=== PATIENT | female | born 1955 | race Caucasian/White ===

== ENCOUNTER → 2016-12-05 | Outpatient (CLI) | payer MEDICARE, BC ==
--- NOTE | 2016-12-05 12:02 | US ---
EXAMINATION TYPE: US abdomen complete DATE OF EXAM: 12/05/2016 11:41 AM COMPARISON: None CLINICAL HISTORY: 61-year-old female R19.06 Epigastric Mass. Receiving dialysis, known right pleural effusion; patient states on the doctor's exam epigastric region was very painful on palpation TECHNIQUE: Multiple sonographic images of the abdomen were obtained. Additional targeted scanning josue ng the epigastrium at the site of patient's tenderness and palpable abnormality. FINDINGS: EXAM MEASUREMENTS: Liver Length: 14.3 cm Gallbladder Wall: 0.2 cm CBD: 0.5 cm Spleen: 12.0 cm Right Kidney: 7.1 x 3.0 x 3.5 cm Left Kidney: 7.8 x 3.0 x 2.8 cm Pancreas: Only a small portion of the pancreatic neck is seen and appears within normal limits. The remainder is obscured by bowel gas shadowing. Liver: Normal homogeneous echotexture without focal lesion. Gallbladder: No abnormal gallbladder distention, wall thickening, pericholecystic fluid, or shadowin g calculi. Some junctional folds are noted. Evidence for sonographic Dewitt's sign: no CBD: Within normal limits. Spleen: Within normal limits. Right Kidney: Small in size without hydronephrosis. Left Kidney: Small in size without hydronephrosis. Upper IVC: Within normal limits. Abd Aorta: Atelectatic calcifications and irregularity without aneurysm. A moderate to large right Pleural Effusion noted. Small amount of perihepatic ascites noted in the upper abdomen. Targeted scanning along the epigastrium shows no discrete solid or cystic mass. IMPRESSION: 1. Moderate to large right pleural effusion and small amount of upper abdominal ascites fluid. Correl ate as to etiology. 2. No discrete masses identified along the epigastrium at the site of patient's complaint. If indicat ed, cross-sectional imaging can be performed to further evaluate. 3. Chronic medical renal disease.
== END | disposition home or self-care (01) ==
LOC: RADUSWWP 11:19
PROVIDERS: ATTEND Family Medicine
DX: R18.8 Other ascites (principal); N18.9 Chronic kidney disease, unspecified
CPT/HCPCS: 76700

== ENCOUNTER → 2018-05-25 | Outpatient (CLI) | payer MEDICARE, BC ==
--- NOTE | 2018-05-25 11:32 | MM ---
Reason for exam: screening (asymptomatic). Baseline mammogram. History: Patient had first child at age 30. Took hormonal contraceptives beginning at age 18. Physical Findings: Nurse did not find any significant physical abnormalities on exam. MG 3D Screening Mammo W/Cad Bilateral CC and MLO view(s) were taken. The breast tissue is heterogeneously dense. This may lower the sensitivity of mammography. Finding: There are typically benign vascular calcifications in the left breast. There is no discrete abnormality. These results were verbally communicated with the patient and result sheet given to the patient on 05/25/18. ASSESSMENT: Benign, BI-RAD 2 RECOMMENDATION: Routine screening mammogram of both breasts in 1 year.
== END | disposition home or self-care (01) ==
LOC: RADMAMWWP 09:27
PROVIDERS: ATTEND Family Medicine
DX: Z12.31 Encounter for screening mammogram for malignant neoplasm of breast (principal)
CPT/HCPCS: 77063; 77067

== ENCOUNTER 2019-02-08 14:55 | Emergency (ER) | payer MEDICARE, BC ==
[2019-02-08 15:08] VITALS: BP 143/80; PULSE 65; RESP 20; TEMP 98
--- NOTE | 2019-02-08 16:50 | ED ---
General Adult HPI - General Chief complaint: ENT Stated complaint: Ear pain, Dizziness Time Seen by Provider: 02/08/19 15:17 Source: patient, RN notes reviewed, old records reviewed Mode of arrival: ambulatory Limitations: no limitations - History of Present Illness Initial comments: 63-year-old female patient with past medical history of type 2 diabetes, hypertension, ESRD on home hemodialysis presents to ED with sinus congestion, sensation of fluid in her ears bilaterally. Patient is ongoing for approximately days. Patient denies any other complaints. Patient denies any sore throat, fever/chills, nausea vomiting diarrhea. Patient denies any chest pain or shortness breath abdominal pain. Systemic: Pt denies fatigue, myalgia, fever/chills, rash. Pt denies weakness, night sweats, weight loss. Neuro: Pt denies headache, visual disturbances, syncope or pre-syncope. HEENT: Pt denies ocular discharge or irritation, otalgia, rhinorrhea, pharyng itis or notable lymphadenopathy. Cardiopulmonary: Pt denies chest pain, SOB, heart palpitations, dyspnea on exertion. Abdominal/GI: Pt denies abdominal pain, n/v/d. : Pt denies dysuria, burning w/ urination, frequency/urgency. Denies new onset urinary or bowel incontinence. MSK: Pt denies myalgia, loss of strength or function in extremities. Neuro: Pt denies new onset weakness, paresthesias. - Related Data Home Medications Medication Instructions Recorded Confirmed Atorvastatin [Lipitor] 20 mg PO HS 08/05/14 08/07/17 Calcium Acetate [PhosLo] 667 mg PO TID 07/17/16 08/07/17 Insuln Asp Prt/Insulin Aspart 22 unit SQ AC-BID 07/17/16 08/07/17 [NovoLOG MIX 70-30 VIAL] Furosemide 80 mg PO BID 07/18/16 08/07/17 Gabapentin 600 mg PO DAILY 07/18/16 08/07/17 Lisinopril 40 mg PO DAILY 07/18/16 08/07/17 Multivitamins, Thera [Multivitamin 1 tab PO DAILY 07/18/16 08/07/17 (formulary)] Hydrochlorothiazide [Hydrodiuril] 25 mg PO TID 04/17/17 08/07/17 rOPINIRole HCL [Requip Xl] 2 mg PO HS 05/01/17 08/07/17 Carvedilol [Coreg] 3.125 mg PO BID 07/03/17 08/07/17 Previous Rx's Medication Instructions Recorded Fluticasone Propionate [Flonase 1 - 2 spray EA NOSTRIL DAILY 5 02/08/19 Allergy Relief] Days ml Nystatin 5 ml PO Q6HR 7 Days #1 bottle 02/08/19 Oxymetazoline 0.05% Nasl [place] 2 spray EA NOSTRIL BID 3 Days #1 02/08/19 [Afrin 0.05% Nasal [place]] bottle Allergies Allergy/AdvReac Type Severity Reaction Status Date / Time Sulfa (Sulfonamide Allergy Unknown Rash/Hives Verified 02/08/19 15:08 Antibiotics) Penicillins Allergy Rash/Hives Verified 02/08/19 15:08 Review of Systems ROS Statement: Those systems with pertinent positive or pertinent negative responses have been documented in the HPI. ROS Other: All systems not noted in ROS Statement are negative. Past Medical History Past Medical History: Diabetes Mellitus, Dialysis, Hyperlipidemia, Hypertension, Renal Disease Additional Past Medical History / Comment(s): NEUROPATHY FEET, HEMODIALYSIS PERITONEAL DIALYSIS DAILY AT HOME.HEMODIALYSIS CATH IN NECK 10/20. REMOVED. STENT IN R ABDOMEN AND LT ARM - pt states she does peritoneal dialysis at home History of Any Multi-Drug Resistant Organisms: None Reported Past Surgical History: Appendectomy, Hysterectomy Additional Past Surgical History / Comment(s): STATES HX OF 3 HEMODIALYSIS CATHETERS. Past Anesthesia/Blood Transfusion Reactions: No Reported Reaction Past Psychological History: No Psychological Hx Reported Smoking Status: Heavy tobacco smoker Past Alcohol Use History: Occasional Past Drug Use History: None Reported - Past Family History Mother Family Medical History: Cancer, Diabetes Mellitus Father Family Medical History: Myocardial Infarction ([place]) Additional Family Medical History / Comment(s): Black lung General Exam - General Exam Comments Initial Comments: Constitutional: NAD, AOX3, Pt has pleasant affect. HEENT: NC/AT, trachea midline, neck supple, no lymphadenopathy. Posterior pharynx non erythematous, mild candidemia infection noted. . External ears appear normal, without discharge. Small effusion noted bilaterally. No erythema or perforation. Mucous membranes moist. Eyes PERRLA, EOM intact. There is no scleral icterus. No pallor noted. Cardiopulmonary: RRR, no murmurs, rubs or gallops, no JVD noted. Lungs CTAB in anterior and posterior potts. No peripheral edema. Abdominal exam: Abdomen soft and non-distended. Abdomen non-tender to palpation in all 4 quadrants. Bowel sounds active in LLQ. No hepatosplenomegaly. No ecchymosis Neuro: CN II-XII grossly intact. No nuchal rigidity. MSK: No posterior calf tenderness bilaterally, homans sign negative bilaterally. Posterior tibialis and radial pulse +2 bilaterally. Sensation intact in upper and lower extremities. Full active ROM in upper and lower extremities, 5/5 stregnth. Limitations: no limitations Course Vital Signs 02/08/19 15:06 Temperature 98 F Pulse Rate 65 Respiratory 20 Rate Blood Pressure 143/80 O2 Sat by Pulse 95 Oximetry Medical Decision Making - Medical Decision Making 63-year-old female patient with past medical history of type 2 diabetes, hypertension, ESRD on home hemodialysis presents to ED with sinus congestion, sensation of fluid in her ears bilaterally. Patient is ongoing for approximately days. Patient denies any other complaints. Patient denies any sore throat, fever/chills, nausea vomiting diarrhea. Patient denies any chest pain or shortness breath abdominal pain. Pt VSS, afebrile. Physical exam displayed: Posterior pharynx non erythematous, mild candidemia infection noted. External ears appear normal, without discharge. Small effusion noted bilaterally. No erythema or perforation. Patient to be prescribed Flonase, Afrin for sinus congestion. Patient to be prescribed nystatin for oropharyngeal candidiasis. Patient to follow up with primary care provider with 2 days. Etiology for oropharyngeal candidiasis likely secondary to mechanical posterior. Case discussed with Dr. Sun. Disposition Clinical Impression: Oral candidiasis, Middle ear effusion Disposition: HOME SELF-CARE Condition: Stable Instructions (If sedation given, give patient instructions): Oral Candidiasis (ED) Additional Instructions: Patient to adhere to previously discussed treatment plan and will take medication(s) as directed. Patient to follow up with PCP in 1-2 days. Patient to return to ED if symptoms do not improve. Please take medication as prescribed. Please follow-up with primary care provider in 1-2. Please return to ER if condition worsens in anyway. Prescriptions: Oxymetazoline 0.05% Nasl [place] [Afrin 0.05% Nasal [place]] 2 spray EA NOSTRIL BID 3 Days #1 bottle Fluticasone Propionate [Flonase Allergy Relief] 1 - 2 spray EA NOSTRIL DAILY 5 Days ml Nystatin 5 ml PO Q6HR 7 Days #1 bottle Is patient prescribed a controlled substance at d/c from ED?: No Referrals: Kieran Manjarrez MD [Primary Care Provider] - 1-2 days
== END 2019-02-08 16:56 | disposition home or self-care (01) ==
LOC: EC 14:55
DX: B37.0 Candidal stomatitis (principal); H74.8X3 Other specified disorders of middle ear and mastoid, bilateral; R09.81 Nasal congestion; E11.22 Type 2 diabetes mellitus with diabetic chronic kidney disease; E11.42 Type 2 diabetes mellitus with diabetic polyneuropathy; I12.0 Hypertensive chronic kidney disease with stage 5 chronic kidney disease or end stage renal disease; N18.6 End stage renal disease; E78.5 Hyperlipidemia, unspecified; F17.200 Nicotine dependence, unspecified, uncomplicated; Z88.0 Allergy status to penicillin; Z88.2 Allergy status to sulfonamides; Z79.4 Long term (current) use of insulin; Z79.899 Other long term (current) drug therapy; Z99.2 Dependence on renal dialysis
CPT/HCPCS: 99284

== ENCOUNTER 2019-02-13 12:52 | Inpatient (IN) | payer MEDICARE, BC ==
[2019-02-13] MEDS ORDERED: SODIUM CHLORIDE 0.9% 1,000 ML IV STA ×2 (14:29→14:32)
[2019-02-13] MEDS ORDERED: SODIUM CHLORIDE 0.9% 500 ML 500 ML IV STA (14:29)
--- NOTE | 2019-02-13 14:33 | ED ---
General Adult HPI - General Chief complaint: Dizziness Stated complaint: Dizzy Time Seen by Provider: 02/13/19 14:22 Source: patient, family, RN notes reviewed Mode of arrival: wheelchair Limitations: no limitations - History of Present Illness Initial comments: Patient is a pleasant 63-year-old female presenting to the emergency department with dizziness and lightheadedness. Symptoms have been mild for a couple of days and worse today. Patient states she is hardly able to walk today. Patient has not been eating or drinking well and several days. Patient has had probably 2 bottles of water in the past few days. No vomiting. No diarrhea. No pain. No confusion. No history of similar symptoms previously. Patient is on peritoneal dialysis which she has continued to do. No urinary symptoms. No confusion or isolated area of weakness. - Related Data Home Medications Medication Instructions Recorded Confirmed Atorvastatin [Lipitor] 20 mg PO HS 08/05/14 02/13/19 Insuln Asp Prt/Insulin Aspart 5 - 6 unit SQ DAILY@1400 07/17/16 02/13/19 [NovoLOG MIX 70-30 VIAL] Furosemide 80 mg PO BID 07/18/16 02/13/19 Gabapentin 600 mg PO DAILY PRN 07/18/16 02/13/19 Carvedilol [Coreg] 12.5 mg PO BID 02/13/19 02/13/19 rOPINIRole HCL [Requip] 1 mg PO BID 02/13/19 02/13/19 Allergies Allergy/AdvReac Type Severity Reaction Status Date / Time Sulfa (Sulfonamide Allergy Unknown Rash/Hives Verified 02/13/19 14:22 Antibiotics) Penicillins Allergy Rash/Hives Verified 02/13/19 14:22 Review of Systems ROS Statement: Those systems with pertinent positive or pertinent negative responses have been documented in the HPI. ROS Other: All systems not noted in ROS Statement are negative. Constitutional: Denies: fever Eyes: Denies: eye pain ENT: Denies: ear pain Respiratory: Denies: dyspnea Cardiovascular: Denies: chest pain Endocrine: Reports: fatigue Gastrointestinal: Denies: abdominal pain Genitourinary: Denies: dysuria Musculoskeletal: Denies: back pain Skin: Denies: rash Neurological: Reports: as per HPI Past Medical History Past Medical History: Diabetes Mellitus, Dialysis, Hyperlipidemia, Hypertension, Renal Disease Additional Past Medical History / Comment(s): NEUROPATHY FEET, HEMODIALYSIS PERITONEAL DIALYSIS DAILY AT HOME.HEMODIALYSIS CATH IN NECK 10/20. REMOVED. STENT IN R ABDOMEN AND LT ARM - pt states she does peritoneal dialysis at home History of Any Multi-Drug Resistant Organisms: None Reported Past Surgical History: Appendectomy, Hysterectomy Additional Past Surgical History / Comment(s): STATES HX OF 3 HEMODIALYSIS CATHETERS. Past Anesthesia/Blood Transfusion Reactions: No Reported Reaction Past Psychological History: No Psychological Hx Reported Smoking Status: Heavy tobacco smoker Past Alcohol Use History: Occasional Past Drug Use History: None Reported - Past Family History Mother Family Medical History: Cancer, Diabetes Mellitus Father Family Medical History: Myocardial Infarction ([place]) Additional Family Medical History / Comment(s): Black lung General Exam Limitations: no limitations General appearance: alert, in no apparent distress Head exam: Present: normocephalic Eye exam: Present: normal appearance ENT exam: Present: mucous membranes dry Neck exam: Present: normal inspection Respiratory exam: Present: normal lung sounds bilaterally Cardiovascular Exam: Present: regular rate, normal rhythm GI/Abdominal exam: Present: soft. Absent: tenderness Extremities exam: Present: normal inspection Neurological exam: Present: alert, oriented X3, CN II-XII intact. Absent: motor sensory deficit Psychiatric exam: Present: normal affect, normal mood Skin exam: Present: normal color Course Vital Signs 02/13/19 02/13/19 02/13/19 13:25 14:07 14:10 Temperature 97.6 F Pulse Rate 73 Respiratory 16 Rate Blood Pressure 62/39 81/26 O2 Sat by Pulse 98 87 L Oximetry 02/13/19 02/13/19 02/13/19 14:30 14:40 14:50 Temperature Pulse Rate 76 Respiratory 6 L 11 L Rate Blood Pressure 83/25 90/60 96/39 O2 Sat by Pulse 89 L Oximetry 02/13/19 02/13/19 02/13/19 15:01 15:10 15:20 Temperature Pulse Rate 78 Respiratory 22 Rate Blood Pressure 96/39 97/34 97/34 O2 Sat by Pulse Oximetry 02/13/19 02/13/19 02/13/19 15:30 15:40 15:50 Temperature Pulse Rate 77 79 79 Respiratory 22 14 16 Rate Blood Pressure 97/34 106/57 115/52 O2 Sat by Pulse Oximetry EKG Findings - EKG Comments: EKG Findings:: Normal sinus rhythm at 77. NH 152. QRS 96. QT 474. QTC 536. Normal axis. Normal QRS. No acute ST change. Medical Decision Making - Medical Decision Making Patient reevaluated and resting comfortably in bed. Patient does feel better. Patient and family updated on results and plan. Case was discussed in detail with Dr. forrest, who will admit covering for Dr. Manjarrez. He would like nephrology call for consult. Nephrology has been paged. - Lab Data Result diagrams: 02/13/19 14:30 02/13/19 14:30 Lab Results 02/13/19 02/13/19 02/13/19 Range/Units 14:30 14:30 14:30 WBC 9.6 (3.8-10.6) k/uL RBC 4.28 (3.80-5.40) m/uL Hgb 12.2 (11.4-16.0) gm/dL Hct 38.4 (34.0-46.0) % MCV 89.8 (80.0-100.0) fL MCH 28.4 (25.0-35.0) pg MCHC 31.6 (31.0-37.0) g/dL RDW 15.6 H (11.5-15.5) % Plt Count 174 (150-450) k/uL Neutrophils % 92 % Lymphocytes % 3 % Monocytes % 2 % Eosinophils % 1 % Basophils % 0 % Neutrophils # 8.9 H (1.3-7.7) k/uL Lymphocytes # 0.3 L (1.0-4.8) k/uL Monocytes # 0.2 (0-1.0) k/uL Eosinophils # 0.1 (0-0.7) k/uL Basophils # 0.0 (0-0.2) k/uL Hypochromasia Slight PT (9.0-12.0) sec INR (<1.2) APTT (22.0-30.0) sec Sodium 132 L (137-145) mmol/L Potassium 4.1 (3.5-5.1) mmol/L Chloride 90 L (98-107) mmol/L Carbon Dioxide 19 L (22-30) mmol/L Anion Gap 23 mmol/L BUN 45 H (7-17) mg/dL Creatinine 8.26 H* (0.52-1.04) mg/dL Est GFR (CKD-EPI)AfAm 5 (>60 ml/min/1.73 sqM) Est GFR (CKD-EPI)NonAf 5 (>60 ml/min/1.73 sqM) Glucose 117 H (74-99) mg/dL Plasma Lactic Acid Deion 4.4 H* (0.7-2.0) mmol/L Calcium 7.0 L (8.4-10.2) mg/dL Phosphorus 7.0 H (2.5-4.5) mg/dL Magnesium 1.7 (1.6-2.3) mg/dL Total Bilirubin 1.0 (0.2-1.3) mg/dL AST 34 (14-36) U/L ALT 29 (9-52) U/L Alkaline Phosphatase 162 H (38-126) U/L Troponin I (0.000-0.034) ng/mL Total Protein 5.0 L (6.3-8.2) g/dL Albumin 2.0 L (3.5-5.0) g/dL 02/13/19 02/13/19 Range/Units 14:30 14:30 WBC (3.8-10.6) k/uL RBC (3.80-5.40) m/uL Hgb (11.4-16.0) gm/dL Hct (34.0-46.0) % MCV (80.0-100.0) fL MCH (25.0-35.0) pg MCHC (31.0-37.0) g/dL RDW (11.5-15.5) % Plt Count (150-450) k/uL Neutrophils % % Lymphocytes % % Monocytes % % Eosinophils % % Basophils % % Neutrophils # (1.3-7.7) k/uL Lymphocytes # (1.0-4.8) k/uL Monocytes # (0-1.0) k/uL Eosinophils # (0-0.7) k/uL Basophils # (0-0.2) k/uL Hypochromasia PT 13.7 H (9.0-12.0) sec INR 1.3 H (<1.2) APTT 29.7 (22.0-30.0) sec Sodium (137-145) mmol/L Potassium (3.5-5.1) mmol/L Chloride (98-107) mmol/L Carbon Dioxide (22-30) mmol/L Anion Gap mmol/L BUN (7-17) mg/dL Creatinine (0.52-1.04) mg/dL Est GFR (CKD-EPI)AfAm (>60 ml/min/1.73 sqM) Est GFR (CKD-EPI)NonAf (>60 ml/min/1.73 sqM) Glucose (74-99) mg/dL Plasma Lactic Acid Deion (0.7-2.0) mmol/L Calcium (8.4-10.2) mg/dL Phosphorus (2.5-4.5) mg/dL Magnesium (1.6-2.3) mg/dL Total Bilirubin (0.2-1.3) mg/dL AST (14-36) U/L ALT (9-52) U/L Alkaline Phosphatase (38-126) U/L Troponin I <0.012 (0.000-0.034) ng/mL Total Protein (6.3-8.2) g/dL Albumin (3.5-5.0) g/dL - Radiology Data Radiology results: image reviewed (Chest x-ray shows right-sided effusion, possible mass) Disposition Clinical Impression: Acute on chronic renal failure, Mass of right lung, Dehydration Disposition: ADMITTED IP TO THIS [facility] Condition: Serious Is patient prescribed a controlled substance at d/c from ED?: No Referrals: Kieran Manjarrez MD [Primary Care Provider] - 1-2 days Decision Time: 16:35
[2019-02-13 14:50] LABS: Basophils % (A) 0 %; Eosinophils # (A) 0.1 k/uL (0-0.7); Eosinophils % (A) 1 %; HCT 38.4 % (34.0-46.0); HGB 12.2 gm/dL (11.4-16.0); Hypochromasia Slight; Lymphocytes # (A) 0.3 k/uL (1.0-4.8); Lymphocytes % (A) 3 %; MCH 28.4 pg (25.0-35.0); MCHC 31.6 g/dL (31.0-37.0); MCV 89.8 fL (80.0-100.0); Mean Platelet Volume 7.9; Monocytes # (A) 0.2 k/uL (0-1.0); Monocytes % (A) 2 %; Neutrophils # (A) 8.9 k/uL (1.3-7.7); Neutrophils % (A) 92 %; Platelet Count 174 k/uL (150-450); RBC 4.28 m/uL (3.80-5.40); RDW 15.6 % (11.5-15.5); WBC 9.6 k/uL (3.8-10.6)
[2019-02-13 14:58] LABS: Magnesium 1.7 mg/dL (1.6-2.3); Potassium 4.1 mmol/L (3.5-5.1)
[2019-02-13 15:11] LABS: INR 1.3 (<1.2); Partial Thromboplastin Time 29.7 sec (22.0-30.0); Prothrombin Time 13.7 sec (9.0-12.0)
--- NOTE | 2019-02-13 15:42 | XR ---
EXAMINATION TYPE: XR chest 2V DATE OF EXAM: 02/13/2019 COMPARISON: Prior chest x-ray 07/20/2016 HISTORY: Weakness and dizziness TECHNIQUE: Frontal and lateral views of the chest are obtained. FINDINGS: There is abnormal increased density at the right lung base similar to prior exam. There is right monika-hilar density, increased density is masslike on the lateral exam also present. Patient is rotated. No evident pneumothorax. Apical pleural thickening noted on the right. Heart size is likely stable. Aorta is dense. There are overlying cardiac leads. IMPRESSION: There is basilar effusion and associated atelectasis. Findings may represent right lung mass. Recommend chest CT.
[2019-02-13] MEDS ORDERED: NALOXONE 0.4 MG/ML 1 ML VIAL IV PRN (16:36)
--- NOTE | 2019-02-13 17:41 | CT ---
EXAMINATION TYPE: CT chest wo con DATE OF EXAM: 02/13/2019 COMPARISON: None HISTORY: Evaluate for lung mass. CT DLP: 219.5 mGycm. Automated Exposure Control for Dose Reduction was Utilized. TECHNIQUE: CT scan of the thorax is performed without IV contrast. FINDINGS: There is a moderate size right pleural effusion. There is right lower lobe consolidation and atelecta sis. Heart is enlarged. There is calcified bronchial cartilage. There is atherosclerotic calcificatio n in the abdominal aorta. There is coronary artery calcification. The left lung is clear. There is mi nimal pleural thickening at the left posterior lung base. There is also pleural thickening at the rig ht lung base. There are large central pulmonary arteries. There are enlarged paratracheal lymph nodes that measure up to 18 x 12 mm. There is anterior mediastinal lymph node that measures 1.5 cm. There is some masslike consolidation on the right upper lateral chest wall in the right upper lobe. This me asures 6 x 2.5 cm. The thoracic spine is intact. I see no focal bone destruction. IMPRESSION: Extensive consolidation and atelectasis right lower lobe. Right upper lobe masslike conso lidation on the chest wall. Moderate right pleural effusion. Mediastinal adenopathy. Extensive atherosclerotic vascular disease. I would consider both inflammatory and neoplastic etiologies for the chest findings. Mesothelioma is possible.
[2019-02-13] MEDS: SODIUM CHLORIDE 0.9% 1,000 ML IV SCH (20:51)
[2019-02-13] MEDS ORDERED: GABAPENTIN 300 MG CAP PO PRN (21:25)
[2019-02-13 21:47] LABS: Glucose,Whole Blood 96 mg/dL (75-99)
[2019-02-13] MEDS: DIALYSIS (PERIT 1.5%) 2,000 ML 30 G/2,000 ML BAG INTRAPERIT SCH (22:40)
[2019-02-13] MEDS ORDERED: ONDANSETRON 4 MG/2 ML VIAL IVP PRN (22:42)
[2019-02-13] MEDS ORDERED: ALPRAZolam 0.25 MG TAB PO PRN (22:42)
[2019-02-13] MEDS ORDERED: CALCIUM CARBONATE 500 MG CHEWABLE PO PRN (22:42)
[2019-02-13] MEDS ORDERED: ACETAMINOPHEN TAB 325 MG TAB PO PRN (22:42)
[2019-02-13] MEDS ORDERED: MAGNESIUM HYDROXIDE 2,400 MG/10 ML CUP PO PRN (22:42)
[2019-02-13] MEDS ORDERED: LACTULOSE 20 GM/30 ML CUP PO PRN (22:42)
[2019-02-13] MEDS ORDERED: MELATONIN 3 MG TABLET PO PRN (22:42)
[2019-02-13] MEDS ORDERED: ENOXAPARIN 30 MG/0.3 ML SYRINGE SQ SCH (22:45)
--- NOTE | 2019-02-13 23:17 | HP ---
HISTORY AND PHYSICAL DATE OF ADMISSION: 02/13/2019 DATE OF SERVICE: 02/13/2019 PRESENTING COMPLAINTS: Weak, tired and dizzy. HISTORY OF PRESENTING COMPLAINT: Pleasant 63-year-old patient who follows with Dr. Manjarrez. Chronic stable medical conditions include diabetes, diabetic peripheral neuropathy, hypertension, hyperlipidemia. The patient is on peritoneal dialysis that she gets at night. Does follow with Dr. Turner from Nephrology. The patient presented with multitude of symptoms including dizzy, lightheaded, tired run and rundown. Sugars were low. Appetite has dwindled. No fever no chills. Blood pressure was down to the 80s and 60s. Patient given fluid. No fever and chills. Nephrology was consulted to adjust the dialysate fluid. The patient is long-standing smoker. REVIEW OF SYSTEMS: CONSTITUTIONAL: Weak and tired. HEENT: Decreased hearing. RESPIRATORY: None. CARDIOVASCULAR: None. GASTROINTESTINAL: None. GENITOURINARY: None. MUSCULOSKELETAL: None. DERMATOLOGICAL, HEMATOLOGIC, LYMPHATIC: None. PSYCHIATRY none. NEUROLOGICAL: Numbness and tingling in the hands and feet. PAST MEDICAL HISTORY: Of diabetes type 2, peripheral neuropathy, hypertension, hyperlipidemia, end-stage kidney disease on peritoneal dialysis. PAST SURGICAL HISTORY: Appendectomy, hysterectomy. SOCIAL HISTORY: . Smokes a pack a day for close to 45 years. Alcohol occasionally. FAMILY HISTORY: Diabetes, cancer, black lung. HOME MEDICATIONS: 1. Coreg 12.5 p.o. b.i.d. 2. Requip 1 mg b.i.d. 3. NovoLog Mix 70/30 5-6 units subcutaneously daily at 2:00 pm. 4. Gabapentin 600 mg p.o. daily p.r.n. 5. Lasix 80 mg p.o. b.i.d. 6. Lipitor 20 mg q.h.s. ALLERGIES: TO PENICILLIN AND SULFUR. PHYSICAL EXAMINATION: VITAL SIGNS: Temperature 97.6, pulse 73, respiratory rate 16, blood pressure down to 62/39, pulse ox 98% on room air. GENERAL APPEARANCE: Average build, sitting in bed, tired-appearing. EYES: Pupils are equal. Conjunctivae normal. HEENT external appearance of nose and ears normal. Oral cavity normal. NECK: JVD not raised. Mass not palpable. RESPIRATORY: Effort normal. LUNGS: Fair air entry. CARDIOVASCULAR: 1st and 2nd sounds normal. No edema. ABDOMEN: Soft, nontender. Liver and spleen not by palpable. PD catheter in place. LYMPHATIC: No lymph nodes palpable in the neck and axilla. PSYCHIATRY: Alert and oriented x3. Mood and affect normal. NEUROLOGICAL: Pupils equal. Cranial nerves grossly intact. Power and sensation grossly intact. INVESTIGATIONS: White count 9.6, hemoglobin 12.2 potassium 4.1, BUN 45, creatinine 8.26, phosphorus 7, albumin 2.0. EKG tracing personally reviewed by me shows normal sinus rhythm with some prolonged QT. CT scan of the chest shows extensive consolidation and atelectasis right lower lobe, right upper lobe masslike consolidation of the chest wall. Moderate right pleural effusion that was on the CT chest. Chest x-ray film personally reviewed by me shows mediastinum pulled to the right, right pleural effusion, possibly right lower lobe collapse. ASSESSMENT: 1. Right lung mass with pleural effusion could be underlying collapse, need to rule out malignancy. Clinically does not appear to be pneumonia, more likely malignancy. 2. End-stage kidney disease on peritoneal dialysis. 3. Diabetic peripheral neuropathy. 4. Essential hypertension history. 5. Hyperlipidemia. 6. Hypotension, multifactorial. PLAN: Patient getting IV fluids. Nephrology was consulted. Pulmonary will be consulted. The patient will be given a nicotine patch. Prognosis is guarded. Copy Dr. Manjarrez. Nephrology is consulted. We will hold off patient's antihypertensive. Fluid boluses were given. We will consult Pulmonary and Oncology. MMODL / IJN: [id number] /
[2019-02-13] MEDS: NICOTINE 21MG/24HR PATCH TRANSDERM SCH (23:18)
[2019-02-14 04:12] LABS: Basophils % (A) 0 %; Eosinophils # (A) 0.1 k/uL (0-0.7); Eosinophils % (A) 1 %; HCT 39.8 % (34.0-46.0); HGB 11.6 gm/dL (11.4-16.0); Hypochromasia Marked; Lymphocytes # (A) 0.3 k/uL (1.0-4.8); Lymphocytes % (A) 2 %; MCH 27.6 pg (25.0-35.0); MCHC 29.1 g/dL (31.0-37.0); Mean Platelet Volume 7.1; Monocytes # (A) 0.3 k/uL (0-1.0); Monocytes % (A) 3 %; Neutrophils # (A) 9.9 k/uL (1.3-7.7); Neutrophils % (A) 91 %; Platelet Count 146 k/uL (150-450); RDW 15.3 % (11.5-15.5); WBC 10.8 k/uL (3.8-10.6)
[2019-02-14 04:14] LABS: Ionized Calcium 3.8 mg/dL (4.5-5.3)
[2019-02-14 04:15] LABS: MCV 94.8 fL (80.0-100.0)
[2019-02-14 04:24] LABS: Magnesium 1.6 mg/dL (1.6-2.3); Phosphorus 5.9 mg/dL (2.5-4.5); Potassium 3.8 mmol/L (3.5-5.1); Total Bilirubin 1.2 mg/dL (0.2-1.3)
[2019-02-14] MEDS: DIALYSIS (PERIT 1.5%) 2,000 ML 30 G/2,000 ML BAG INTRAPERIT SCH ×4 (04:46→22:27)
[2019-02-14] MEDS ORDERED: SODIUM CHLORIDE 0.9% 500 ML 250 ML IV ONE (06:40)
[2019-02-14 07:02] LABS: Glucose,Whole Blood 105 mg/dL (75-99)
[2019-02-14 07:15] LABS: Appearance,BF Clear; Color,BF Yellow; Nucleated Cells, Body Fluid 6 /uL; RBC, Body Fluid 9 /uL
[2019-02-14] MEDS: INSULIN ASPART (NovoLOG) 100 UNIT/ML VIAL SQ SCH ×4 (07:43→22:34)
[2019-02-14] MEDS: SODIUM CHLORIDE 0.9% 1,000 ML IV SCH ×3 (07:43→22:35)
[2019-02-14] MEDS: NICOTINE 21MG/24HR PATCH TRANSDERM SCH (07:47)
[2019-02-14] MEDS: PANTOPRAZOLE 40 MG/10 ML VIAL IVP SCH ×2 (07:51→22:34)
--- NOTE | 2019-02-14 09:13 | P.CONS ---
History of Present Illness - Reason for Consult Consult date: 02/14/19 Coffee-ground emesis GI bleed Requesting physician: Miguel Angel Helton - Chief Complaint Lightheadedness dizziness low blood pressure - History of Present Illness 63-year-old female with a history of diabetes mellitus, hyperlipidemia, hypertension, end-stage renal disease peritoneal dialysis admitted with multiple constitutional complaints lightheadedness dizziness lethargy decreased appetite for several days. Blood pressure was low in the emergency room 62/39 Chest x- ray reported basilar effusion and associated atelectasis possible right lung mass. Follow-up CT chest demonstrated moderate right-sided pleural effusion with right lower lobe consolidation atelectasis. Left lung clear. Pleural thickening at right lung base. And large paratracheal lymph nodes measuring up to 1812 mm. Anterior mediastinal lymph node 1.5 cm. Masslike consolidation right upper lateral chest wall in the right upper lobe measuring 62.5 cm. No focal bone destruction. Mediastinal adenopathy. Possible mesothelioma possible inflammatory possible neoplastic etiology. He denies shortness of breath or chest pain. Subsequently around 3:00 this morning she developed increased nausea and recurrent type symptoms with development of large volume coffee-ground emesis 5. No history of peptic ulcer disease or EGD. No history of colonoscopy in fact she scheduled next week in the outpatient setting to have a screening colonoscopy. No NSAIDs or aspirin or antiplatelet medications. Admission hemoglobin 12.2. MCV 89. Prior to coffee-ground emesis hemoglobin was 11.6 repeat CBC is pending at time of dictation. Platelet 146. INR 1.3. BUN 45. Creatinine 8.2. Lactic acid 4.4 with hydration 1.6. Sodium 132. Potassium 4.1. Electrolytes earlier this morning sodium 133. BUN 41 creatinine 7.1. She is oxygenating greater than 95% on room air. Current blood pressure 106/50 at bedside. Afebrile. Denies gross hematemesis or melena melena. Denies epigastric or abdominal pain. Review of Systems Constitutional: Denies fever, chills, sweats, weight gain, or loss. Lightheadedness. Weakness. Lethargy. HEENT: Negative for migraines, blurred vision or loss, earaches, drainage, tinnitus, oral mucosal lesions, dysphagia, or odynophagia. CARDIAC: Negative for chest pain, arrhythmias, or palpitation. RESPIRATORY: Negative for shortness of breath, hemoptysis, cough, or sputum production. GI: See HPI for pertinent findings. : Negative for hematuria, urgency, frequency, polyuria, or dysuria. GYNc: Negative vaginal discharge. MUSCULOSKELETAL: Negative for muscle aches, swelling, arthritis, and arthralgias. NEUROLOGIC: Negative for stroke or TIA. ENDOCRINE: Negative for thyroid problems. SKIN: Negative for rash or itching. PSYCHIATRIC: Negative history for depression and anxiety Past Medical History Past Medical History: Diabetes Mellitus, Dialysis, Hyperlipidemia, Hypertension, Renal Disease Additional Past Medical History / Comment(s): NEUROPATHY FEET, HEMODIALYSIS PERITONEAL DIALYSIS DAILY AT HOME.HEMODIALYSIS CATH IN NECK 10/20. REMOVED. STENT IN R ABDOMEN AND LT ARM - pt states she does peritoneal dialysis at home History of Any Multi-Drug Resistant Organisms: None Reported Past Surgical History: Appendectomy, Hysterectomy Additional Past Surgical History / Comment(s): STATES HX OF 3 HEMODIALYSIS CATHETERS. 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 She is ongoing tobacco smoker. Denies significant alcohol use. No recreational drug use. No extensive travels. No animal exposures. Smoking Status: Heavy tobacco smoker Past Alcohol Use History: Occasional Past Drug Use History: None Reported - Past Family History Mother Family Medical History: Cancer, Diabetes Mellitus Father Family Medical History: Myocardial Infarction ([place]) Additional Family Medical History / Comment(s): Black lung Medications and Allergies Home Medications Medication Instructions Recorded Confirmed Type Atorvastatin [Lipitor] 20 mg PO HS 08/05/14 02/13/19 History Insuln Asp Prt/Insulin Aspart 5 - 6 unit SQ DAILY@1400 07/17/16 02/13/19 History [NovoLOG MIX 70-30 VIAL] Furosemide 80 mg PO BID 07/18/16 02/13/19 History Gabapentin 600 mg PO DAILY PRN 07/18/16 02/13/19 History Carvedilol [Coreg] 12.5 mg PO BID 02/13/19 02/13/19 History rOPINIRole HCL [Requip] 1 mg PO BID 02/13/19 02/13/19 History Allergies Allergy/AdvReac Type Severity Reaction Status Date / Time Sulfa (Sulfonamide Allergy Unknown Rash/Hives Verified 02/13/19 14:22 Antibiotics) Penicillins Allergy Rash/Hives Verified 02/13/19 14:22 Physical Exam Vitals: Vital Signs Temp Pulse Pulse Resp BP BP Pulse Ox 02/14/19 07:00 97.4 F L 101 H 15 89/45 02/14/19 06:59 89/45 02/14/19 06:27 91/38 02/14/19 06:20 83/34 02/14/19 06:18 48/28 02/14/19 06:06 97.5 F L 83 14 69/40 98 02/14/19 05:54 97.5 F L 83 18 93/60 100 02/14/19 05:46 97/61 02/14/19 05:36 97/63 02/14/19 05:27 73/38 02/14/19 05:17 78/46 02/14/19 05:11 67/43 02/14/19 04:58 79/45 02/14/19 04:38 62/30 02/14/19 04:27 87/46 02/14/19 04:16 99/66 02/14/19 03:45 130/64 02/14/19 00:06 100 02/13/19 23:23 98.0 F 74 15 99/64 100 02/13/19 22:51 97.8 F 75 14 94/59 100 02/13/19 19:28 97.5 F L 67 16 92/48 94 L 02/13/19 18:16 98.0 F 85 16 104/44 96 02/13/19 15:50 79 16 115/52 02/13/19 15:40 79 14 106/57 02/13/19 15:30 77 22 97/34 02/13/19 15:20 97/34 02/13/19 15:10 97/34 02/13/19 15:01 78 22 96/39 02/13/19 14:50 96/39 89 L 02/13/19 14:40 76 11 L 90/60 02/13/19 14:30 6 L 83/25 02/13/19 14:10 81/26 02/13/19 14:07 87 L 02/13/19 13:25 97.6 F 73 16 62/39 98 Intake and Output 02/13/19 02/14/19 02/14/19 22:59 06:59 14:59 Intake Total 1500 600 Balance 1500 600 Intake: Amount of Fluid Infused ( 1500 ml) Intake, IV Titration 600 Amount Sodium Chloride 0.9% 1, 600 000 ml @ 100 mls/hr IV . Q10H [facility] Rx#:[id number] Other: Voiding Method CAPD General appearance: The patient is alert, oriented, in no acute distress. HET: Head is normocephalic and atraumatic. Pupils are equal and reactive. Oropharynx is clear without lesions. Neck: Supple without lymphadenopathy. Trachea midline. Heart: S1 S2. Regular rate and rhythm. Lungs: No crackles or wheezes are heard. Diminished in right mid lobe right lo wer lobe. Abdomen: Peritoneal catheter intact without hematoma drainage or bleeding. Soft, nontender, nondistended with bowel sounds. No peritoneal signs. No palpable organomegaly or masses. Extremities: Normal skin color and turgor. No cyanosis, rash, ulceration, clubbing, or edema. Radial and pedal pulses are 2/4 bilaterally. Neurological: No focal deficits. Strength and sensation are grossly intact. Results CBC & Chem 7: 02/14/19 03:55 02/14/19 03:55 Labs: Abnormal Lab Results - Last 24 Hours (Table) 02/13/19 02/13/19 02/13/19 Range/Units 14:30 14:30 14:30 WBC (3.8-10.6) k/uL MCHC (31.0-37.0) g/dL RDW 15.6 H (11.5-15.5) % Plt Count (150-450) k/uL Neutrophils # 8.9 H (1.3-7.7) k/uL Lymphocytes # 0.3 L (1.0-4.8) k/uL PT (9.0-12.0) sec INR (<1.2) Sodium 132 L (137-145) mmol/L Chloride 90 L (98-107) mmol/L Carbon Dioxide 19 L (22-30) mmol/L BUN 45 H (7-17) mg/dL Creatinine 8.26 H* (0.52-1.04) mg/dL Glucose 117 H (74-99) mg/dL POC Glucose (mg/dL) (75-99) mg/dL Plasma Lactic Acid Deion 4.4 H* (0.7-2.0) mmol/L Calcium 7.0 L (8.4-10.2) mg/dL Ionized Calcium Dianelys (4.5-5.3) mg/dL Phosphorus 7.0 H (2.5-4.5) mg/dL AST (14-36) U/L Alkaline Phosphatase 162 H (38-126) U/L Total Protein 5.0 L (6.3-8.2) g/dL Albumin 2.0 L (3.5-5.0) g/dL 02/13/19 02/14/19 02/14/19 Range/Units 14:30 03:55 03:55 WBC 10.8 H (3.8-10.6) k/uL MCHC 29.1 L (31.0-37.0) g/dL RDW (11.5-15.5) % Plt Count 146 L (150-450) k/uL Neutrophils # 9.9 H (1.3-7.7) k/uL Lymphocytes # 0.3 L (1.0-4.8) k/uL PT 13.7 H (9.0-12.0) sec INR 1.3 H (<1.2) Sodium 133 L (137-145) mmol/L Chloride 96 L (98-107) mmol/L Carbon Dioxide 15 L (22-30) mmol/L BUN 41 H (7-17) mg/dL Creatinine 7.14 H* (0.52-1.04) mg/dL Glucose 117 H (74-99) mg/dL POC Glucose (mg/dL) (75-99) mg/dL Plasma Lactic Acid Deion (0.7-2.0) mmol/L Calcium 7.0 L (8.4-10.2) mg/dL Ionized Calcium Dianelys 3.8 L (4.5-5.3) mg/dL Phosphorus 5.9 H (2.5-4.5) mg/dL AST 72 H (14-36) U/L Alkaline Phosphatase 232 H (38-126) U/L Total Protein 5.0 L (6.3-8.2) g/dL Albumin 2.0 L (3.5-5.0) g/dL 02/14/19 Range/Units 06:50 WBC (3.8-10.6) k/uL MCHC (31.0-37.0) g/dL RDW (11.5-15.5) % Plt Count (150-450) k/uL Neutrophils # (1.3-7.7) k/uL Lymphocytes # (1.0-4.8) k/uL PT (9.0-12.0) sec INR (<1.2) Sodium (137-145) mmol/L Chloride (98-107) mmol/L Carbon Dioxide (22-30) mmol/L BUN (7-17) mg/dL Creatinine (0.52-1.04) mg/dL Glucose (74-99) mg/dL POC Glucose (mg/dL) 105 H (75-99) mg/dL Plasma Lactic Acid Deion (0.7-2.0) mmol/L Calcium (8.4-10.2) mg/dL Ionized Calcium Dianelys (4.5-5.3) mg/dL Phosphorus (2.5-4.5) mg/dL AST (14-36) U/L Alkaline Phosphatase (38-126) U/L Total Protein (6.3-8.2) g/dL Albumin (3.5-5.0) g/dL CT scan - chest: report reviewed (dr. Sherwood) Assessment and Plan (1) Coffee ground emesis Narrative/Plan: Possible peptic ulcer disease possible neoplasm possible gastritis esophagitis duodenitis. Protonix 40 mg IV twice daily. Nothing by mouth except medications. CBC at noon. Current Visit: Yes Status: Acute Code(s): K92.0 - HEMATEMESIS SNOMED Code(s): 72555229 (2) Mass of right lung Narrative/Plan: Pulmonary consultation Current Visit: Yes Status: Acute Code(s): R91.8 - OTHER NONSPECIFIC ABNORMAL FINDING OF LUNG FIELD SNOMED Code(s): 864088075 (3) End-stage renal disease on peritoneal dialysis Narrative/Plan: Nephrology consultation Current Visit: Yes Status: Acute Code(s): N18.6 - END STAGE RENAL DISEASE; Z99.2 - DEPENDENCE ON RENAL DIALYSIS SNOMED Code(s): 77109728 Plan: The certified vehicle fire investigator has discussed the risks, benefits and alternative therapies for the above-mentioned procedure and for both sedation/analgesia as well as necessary blood product administration, if indicated, as they pertain to this patient. The patient has indicated understanding and acceptance of the risks and procedures discussed. Thank you for this kind referral and the opportunity to participate in the care of your patient. This consultation was discussed with Dr. Sherwood. The impression and plan of care have been directed as dictated.
[2019-02-14 11:38] LABS: Glucose,Whole Blood 81 mg/dL (75-99)
[2019-02-14 13:33] LABS: Basophils % (A) 0 %; Eosinophils # (A) 0.1 k/uL (0-0.7); Eosinophils % (A) 1 %; HCT 37.5 % (34.0-46.0); HGB 11.2 gm/dL (11.4-16.0); Hypochromasia Moderate; Lymphocytes # (A) 0.4 k/uL (1.0-4.8); Lymphocytes % (A) 4 %; MCH 27.1 pg (25.0-35.0); MCHC 29.9 g/dL (31.0-37.0); MCV 90.7 fL (80.0-100.0); Mean Platelet Volume 7.4; Monocytes # (A) 0.2 k/uL (0-1.0); Monocytes % (A) 3 %; Neutrophils # (A) 7.7 k/uL (1.3-7.7); Neutrophils % (A) 87 %; Platelet Count 133 k/uL (150-450); RBC 4.14 m/uL (3.80-5.40); RDW 15.7 % (11.5-15.5); WBC 8.8 k/uL (3.8-10.6)
[2019-02-14] MEDS ORDERED: PROPOFOL 10 MG/ML 20 ML VIAL IV ONE (13:50)
[2019-02-14] MEDS ORDERED: LIDOCAINE 1% INJ 10MG/ML (20 ML MDV) ONE (13:50)
[2019-02-14] MEDS ORDERED: IV FLUID CONTINUATION 500 ML IV ONE (13:52)
[2019-02-14 14:01] LABS: Calcium 7.2 mg/dL (8.4-10.2); Potassium 3.9 mmol/L (3.5-5.1)
--- NOTE | 2019-02-14 14:28 | P.PCN ---
Date of Procedure: 02/14/19 Description of Procedure: BRIEF HISTORY: 63-year-old female with a history of diabetes mellitus, hyperlipidemia, hypertension, end-stage renal disease peritoneal dialysis admitted with multiple constitutional complaints lightheadedness dizziness lethargy decreased appetite for several days. Blood pressure was low in the emergency room 62/39 Chest x- ray reported basilar effusion and associated atelectasis possible right lung mass. Follow-up CT chest demonstrated moderate right-sided pleural effusion with right lower lobe consolidation atelectasis. Left lung clear. Pleural thickening at right lung base. And large paratracheal lymph nodes measuring up to 1812 mm. Anterior mediastinal lymph node 1.5 cm. Masslike consolidation right upper lateral chest wall in the right upper lobe measuring 62.5 cm. No focal bone destruction. Mediastinal adenopathy. Possible mesothelioma possible inflammatory possible neoplastic etiology. Subsequently around 3:00 this morning she developed increased nausea and recurrent type symptoms with development of large volume coffee-ground emesis 5. No history of peptic ulcer disease or EGD. No history of colonoscopy in fact she scheduled next week in the outpatient setting to have a screening colonoscopy. No NSAIDs or aspirin or a ntiplatelet medications. Admission hemoglobin 12.2. MCV 89. Prior to coffee- ground emesis hemoglobin was 11.6 repeat CBC is pending at time of dictation. PROCEDURE PERFORMED: Esophagogastroduodenoscopy with biopsy. PREOPERATIVE DIAGNOSIS: Coffee-ground emesis, upper GI bleed. ESTIMATED BLOOD LOSS: Minimal. IV sedation per anesthesia. PROCEDURE: After informed consent was obtained, the patient was brought into the endoscopy unit. IV sedation was administered by Anesthesia under continuous monitoring. Initially the Olympus GIF-190 video endoscope was inserted into the mouth. Esop hagus intubated without any difficulty. It was gradually advanced into the stomach and duodenum and carefully examined. The bulb and duodenal sweep were significant for inflammation consistent with duodenitis and diffuse ulceration with biopsies taken. The second part of the duodenum appeared normal. The scope at this time was withdrawn to the stomach, adequately insufflated with air, and mucosa of the antrum, body, cardia and the fundus were closely examined. There was hemolyzed blood noted throughout the stomach which was washed copiously with saline and suctioned. The mucosa was closely examined and was significant for 3 large ulcers in the gastric antrum with biopsies of the ulcers taken. There is also diffuse gastritis of the antrum and body. The scope was then withdrawn into the esophagus. The GE junction was located at 39 cm from the incisors. The distal esophagus was significant for grade D esophagitis with ulceration. No active bleeding was noted throughout the entire procedure. The patient tolerated the procedure well. IMPRESSION: 1. 3 nonbleeding gastric ulcers in the antrum, biopsied. 2. Duodenitis and ulceration in the duodenal bulb and sweep with biopsies t aken. 3. Moderate gastritis. 4. LA grade D esophagitis with ulceration in the distal esophagus. 5. Old blood noted in the stomach which was lavaged with no active bleeding noted. RECOMMENDATIONS: The findings of this examination were discussed with the patient in the nursing staff. Okay to resume liquid diet. Patient should be maintained on Protonix IV twice daily. Await pathology from biopsies. Continue other medical management.
--- NOTE | 2019-02-14 14:39 | P.CNPUL ---
History of Present Illness Consult date: 02/14/19 Reason for consult: lung mass History of present illness: C3-year-old female patient with known history of COPD, diabetes mellitus, hypertension hyperlipidemia and she has also dialysis-dependent renal failure and the patient is undergoing peritoneal dialysis. The patient came into the hospital feeling weak, dizzy and lightheaded. She stated that she was hardly able to walk. She hasn't been eating or drinking for several days. She stated that she had only 2 bottles of water over the past few days. No nausea. No vomiting. No diarrhea. No altered mentation. She had been undergoing Peritoneal dialysis. No fever. No chills. The patient had a chest x-ray in the emergency department that showed right basilar opacity/mass/atelectasis with effusion. This was followed up by CAT scan of the chest that showed a moderate- sized right-sided pleural effusion in addition to masslike consolidation in the right lower lobe and the right upper lobe. There was also enlarged right paratracheal lymph nodes measuring 18 x 12 mm in size and anterior mediastinal lymph node measuring 1.5 cm. There is a questionable right hilar mass in add ition. This CAT scan was done without contrast. Another masslike consolidation is present in the right upper lobe lateral chest area measuring 6 x 2.5 cm in size. No focal bony destruction. The patient during this current hospital stay. Large-volume coffee-ground emesis 5. For that reason the patient was seen by gastroenterology and the patient is going to undergo an EGD today. Upon further questioning, the patient is a chronic smoker. She has recently seen Dr. Williamson regarding possibility of lung cancer. No further recommendations are made by her comb setter in that regard. Review of Systems Constitutional: Denies fever, chills, sweats, weight gain, or loss. Lightheadedness. Weakness. Lethargy. HEENT: Negative for migraines, blurred vision or loss, earaches, drainage, tinnitus, oral mucosal lesions, dysphagia, or odynophagia. CARDIAC: Negative for chest pain, arrhythmias, or palpitation. RESPIRATORY: Negative for shortness of breath, hemoptysis, cough, or sputum production. GI: See HPI for pertinent findings. : Negative for hematuria, urgency, frequency, polyuria, or dysuria. Patient undergoes peritoneal dialysis. GYNc: Negative vaginal discharge. MUSCULOSKELETAL: Negative for muscle aches, swelling, arthritis, and arthralgias. NEUROLOGIC: Negative for stroke or TIA. ENDOCRINE: Negative for thyroid problems. SKIN: Negative for rash or itching. PSYCHIATRIC: Negative history for depression and anxiety Past Medical History Past Medical History: Diabetes Mellitus, Dialysis, Hyperlipidemia, Hypertension, Renal Disease Additional Past Medical History / Comment(s): End-stage renal disease on peritoneal dialysis, COPD, diabetes mellitus, hypertension, hyperlipidemia, peripheral neuropathy History of Any Multi-Drug Resistant Organisms: None Reported Past Surgical History: Appendectomy, Hysterectomy Additional Past Surgical History / Comment(s): STATES HX OF 3 HEMODIALYSIS CATHETERS. 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 She is ongoing tobacco smoker. Denies significant alcohol use. No recreational drug use. No extensive travels. No a nimal exposures. Smoking Status: Heavy tobacco smoker Past Alcohol Use History: Occasional Past Drug Use History: None Reported - Past Family History Mother Family Medical History: Cancer, Diabetes Mellitus Father Family Medical History: Myocardial Infarction ([place]) Additional Family Medical History / Comment(s): Black lung Medications and Allergies Home Medications Medication Instructions Recorded Confirmed Type Atorvastatin [Lipitor] 20 mg PO HS 08/05/14 02/13/19 History Insuln Asp Prt/Insulin Aspart 5 - 6 unit SQ DAILY@1400 07/17/16 02/13/19 History [NovoLOG MIX 70-30 VIAL] Furosemide 80 mg PO BID 07/18/16 02/13/19 History Gabapentin 600 mg PO DAILY PRN 07/18/16 02/13/19 History Carvedilol [Coreg] 12.5 mg PO BID 02/13/19 02/13/19 History rOPINIRole HCL [Requip] 1 mg PO BID 02/13/19 02/13/19 History Allergies Allergy/AdvReac Type Severity Reaction Status Date / Time Sulfa (Sulfonamide Allergy Unknown Rash/Hives Verified 02/13/19 14:22 Antibiotics) Penicillins Allergy Rash/Hives Verified 02/13/19 14:22 Physical Exam Vitals: Vital Signs Temp Pulse Pulse Resp BP BP Pulse Ox 02/14/19 10:28 15 02/14/19 07:00 97.4 F L 101 H 15 89/45 02/14/19 06:59 89/45 02/14/19 06:27 91/38 02/14/19 06:20 83/34 02/14/19 06:18 48/28 02/14/19 06:06 97.5 F L 83 14 69/40 98 02/14/19 05:54 97.5 F L 83 18 93/60 100 02/14/19 05:46 97/61 02/14/19 05:36 97/63 02/14/19 05:27 73/38 02/14/19 05:17 78/46 02/14/19 05:11 67/43 02/14/19 04:58 79/45 02/14/19 04:38 62/30 02/14/19 04:27 87/46 02/14/19 04:16 99/66 02/14/19 03:45 130/64 02/14/19 00:06 100 02/13/19 23:23 98.0 F 74 15 99/64 100 02/13/19 22:51 97.8 F 75 14 94/59 100 02/13/19 19:28 97.5 F L 67 16 92/48 94 L 02/13/19 18:16 98.0 F 85 16 104/44 96 02/13/19 15:50 79 16 115/52 02/13/19 15:40 79 14 106/57 02/13/19 15:30 77 22 97/34 02/13/19 15:20 97/34 02/13/19 15:10 97/34 02/13/19 15:01 78 22 96/39 02/13/19 14:50 96/39 89 L 02/13/19 14:40 76 11 L 90/60 02/13/19 14:30 6 L 83/25 Intake and Output 02/13/19 02/14/19 02/14/19 22:59 06:59 14:59 Intake Total 1500 600 Balance 1500 600 Intake: Amount of Fluid Infused ( 1500 ml) Intake, IV Titration 600 Amount Sodium Chloride 0.9% 1, 600 000 ml @ 100 mls/hr IV . Q10H [facility] Rx#:[id number] Other: Voiding Method CAPD CAPD Gen. appearance she is calm and comfortable not in distress Head exam was generally normal. There was no scleral icterus or corneal arcus. Mucous membranes were moist. Neck was supple and without jugular venous distension, thyromegaly, or carotid bruits. Carotids were easily palpable bilaterally. There was no adenopathy. Lungs sounds are diminished in the right lung base compared to left. Few scattered expiratory wheeze. Cardiac exam revealed the PMI to be normally situated and sized. The rhythm was regular and no extrasystoles were noted during several minutes of auscultation. The first and second heart sounds were normal and physiologic splitting of the second heart sound was noted. There were no murmurs, rubs, clicks, or gallops. Abdominal exam revealed normal bowel sounds. The abdomen was soft, non-tender, and without masses, organomegaly, or appreciable enlargement of the abdominal aorta. The patient is a PD catheter in place and there is no direct tenderness amount of guarding. Examination of the extremities revealed easily palpable radial, femoral and pedal pulses. There was no cyanosis, clubbing or edema. Examination of the skin revealed no evidence of significant rashes, suspicious appearing nevi or other concerning lesions. Neurologically awake and alert and following commands and answering questions appropriately. Results - Laboratory Findings CBC and BMP: 02/14/19 11:43 02/14/19 11:43 PT/INR, D-dimer PT 13.7 sec (9.0-12.0) H 02/13/19 14:30 INR 1.3 (<1.2) H 02/13/19 14:30 Abnormal lab findings: Abnormal Labs 02/13/19 02/13/19 02/13/19 14:30 14:30 14:30 WBC Hgb MCHC RDW 15.6 H Plt Count Neutrophils # 8.9 H Lymphocytes # 0.3 L PT INR Sodium 132 L Chloride 90 L Carbon Dioxide 19 L BUN 45 H Creatinine 8.26 H* Glucose 117 H POC Glucose (mg/dL) Plasma Lactic Acid Deion 4.4 H* Calcium 7.0 L Ionized Calcium Dianelys Phosphorus 7.0 H AST Alkaline Phosphatase 162 H Total Protein 5.0 L Albumin 2.0 L 02/13/19 02/14/19 02/14/19 14:30 03:55 03:55 WBC 10.8 H Hgb MCHC 29.1 L RDW Plt Count 146 L Neutrophils # 9.9 H Lymphocytes # 0.3 L PT 13.7 H INR 1.3 H Sodium 133 L Chloride 96 L Carbon Dioxide 15 L BUN 41 H Creatinine 7.14 H* Glucose 117 H POC Glucose (mg/dL) Plasma Lactic Acid Deion Calcium 7.0 L Ionized Calcium Dianelys 3.8 L Phosphorus 5.9 H AST 72 H Alkaline Phosphatase 232 H Total Protein 5.0 L Albumin 2.0 L 02/14/19 02/14/19 02/14/19 06:50 11:43 11:43 WBC Hgb 11.2 L MCHC 29.9 L RDW 15.7 H Plt Count 133 L Neutrophils # Lymphocytes # 0.4 L PT INR Sodium 136 L Chloride 97 L Carbon Dioxide 18 L BUN 42 H Creatinine 7.27 H* Glucose POC Glucose (mg/dL) 105 H Plasma Lactic Acid Deion Calcium 7.2 L Ionized Calcium Dianelys Phosphorus AST Alkaline Phosphatase Total Protein Albumin - Diagnostic Findings Chest x-ray: image reviewed CT scan - chest: image reviewed Assessment and Plan Assessment: 1 moderate-sized right-sided pleural effusion, rule out malignant pleural effusion. Rule out pleural effusion related to peritoneal dialysis and fluid le aking into the pleural space 2 right upper lobe masslike consolidation in the upper lateral chest wall area measuring 6 x 2.5 cm in size is sedated with questionable hilar mass, paratracheal and anterior mediastinal lymphadenopathy. Consider possibility of underlying lung cancer based on these findings. 3 right lower lobe atelectasis/consolidation along with right-sided pleural effusion 4 coffee-ground emesis, consider upper GI bleed 5 End stage disease on continue hemodialysis, PD 6 COPD 7 diabetes mellitus 8 hypertension 9 hyperlipidemia Plan The patient is going to undergo EGD regarding his upper GI bleed. Continue with PD dialysis. Continue monitoring hemoglobin. Right lung findings are quite chronic and needs to be investigated later stage on outpatient basis. She would look to follow-up with her comb setter Dr. Williamson regarding this issue. I explained to the patient that there is a quite high likelihood that she may have underlying lung cancer. Smoking cessation counseling was done. Overall poor status is stable. We'll continue to follow until discharge from the hospital.
[2019-02-14 16:50] LABS: Glucose,Whole Blood 68 mg/dL (75-99)
[2019-02-14] MEDS: MIDODRINE 5 MG TAB PO SCH (17:24)
[2019-02-14 20:05] LABS: Glucose,Whole Blood 115 mg/dL (75-99)
--- NOTE | 2019-02-14 20:13 | CONS ---
CONSULTATION DATE OF CONSULTATION: 02/14/2019 REASON FOR CONSULT: End-stage renal disease. HISTORY OF PRESENT ILLNESS: The patient is a 63-year-old female with end-stage renal disease, on peritoneal dialysis. She was admitted to the hospital with increasing weakness. Patient was found to be quite hypotensive with blood pressure in the 80s when she came in. She has received IV fluid boluses overnight. Patient denied any significant diarrhea prior to admission. However, she developed coffee-ground emesis overnight and is scheduled for EGD today. She will be going empty for the procedure. Chest CT scan on admission showed right upper lobe mass-like consolidation with moderate right pleural effusion. Mediastinal lymphadenopathy was noted as well and patient is scheduled to be seen by Pulmonology. PAST MEDICAL HISTORY: 1. End-stage renal disease, on peritoneal dialysis. 2. Hypertension. 3. CKD mineral bone disorder. 4. Type 2 diabetes. 5. Neuropathy. PAST SURGICAL HISTORY: 1. Appendectomy. 2. PD catheter placement. 3. Hysterectomy. 4. Previous AV fistula and AV graft. SOCIAL HISTORY: Positive for smoking. No history of drug abuse or alcohol abuse. MEDICATIONS: Medications prior to admission included: 1. Lasix. 2. Gabapentin. 3. Coreg. 4. Requip. 5. Insulin. 6. Lipitor. ALLERGIES: Include SULFA and PENICILLIN. Both cause rash. REVIEW OF SYSTEMS: As per HPI. Other systems negative. PHYSICAL EXAMINATION: Patient is comfortable, awake, alert, oriented x3. She is not in any acute distress. Patient is hard of hearing. Blood pressure was 89/45, heart rate 101 per minute. She is afebrile. EXAMINATION OF THE HEART: S1 and S2. EXAMINATION OF LUNGS: Bilateral breath sounds are heard. ABDOMEN: Soft, non-tender. Examination of lower extremities shows trace edema bilaterally. Chronic skin changes are noted. SALES RECRUITMENT SPECIALIST exam is grossly intact. LABS: Sodium 133, potassium 3.8, BUN 41, serum creatinine 7.14. Hemoglobin was 11.6 g/dL. ASSESSMENT: 1. End-stage renal disease, on peritoneal dialysis. We will continue with the PD exchanges. However, will resume after she comes back from the EGD. Will continue to use 1.5% solution, given her hypotension. Continue with the IV fluids as well. 2. Hypotension associated with volume depletion, currently improved. Continue with IV fluids. Check a random cortisol level as well. We can maintain patient on midodrine. 3. Right upper lobe mass with mediastinal lymphadenopathy; suspicion for malignancy. The patient is scheduled to see Pulmonology. 4. Gastrointestinal bleed. Scheduled for EGD this morning. Last hemoglobin was 11.6 g/dL. PLAN: Resume PD after patient returns from EGD. Start midodrine. Continue with IV fluids. Check cortisol level. Follow up on the lung mass. Thank you for this consultation. Will continue to follow the patient with you during her hospitalization. MMODL / IJN: [id number] /
--- NOTE | 2019-02-14 22:10 | PN ---
PROGRESS NOTE DATE OF SERVICE: 02/14/2019 PRESENTING COMPLAINT: Coffee-ground emesis. INTERVAL HISTORY: This patient presented weak, tired, run down. Early hours of this morning, patient had coffee-grounds emesis, became more weak and tired. GI was consulted. The patient was taken down for EGD. I discussed the results with Dr. Sherwood. Patient is found to have gastric ulcer, duodenal ulcer, and severe duodenitis, gastritis, esophagitis. The patient also seen by Dr. Gardiner from Pulmonary. He wants the patient to have further workup by the patient's telecommunications technician, Dr. Williamson. The patient does feel a bit weak and tired, run down. REVIEW OF SYSTEMS: Done for constitutional, cardiovascular, GI, pulmonary and relevant findings as above. CURRENT MEDICATIONS: Reviewed that include PPI. PHYSICAL EXAMINATION: VITAL SIGNS: Temperature 97.5, pulse 57, respirations 16, blood pressure 92/58, pulse ox 98% on 3 L. GENERAL APPEARANCE: Lying in bed, tired-appearing. EYES: Pupils equal. Conjunctivae pale. NECK: JVD not raised. Mass not palpable. RESPIRATORY: Effort increased. LUNGS: Fair air entry. CARDIOVASCULAR: First and second sounds normal. No edema. ABDOMEN: Soft, nontender. Liver and spleen not palpable. PSYCHIATRY: AO x3. Mood and affect slightly anxious-appearing. INVESTIGATIONS: White count 8.8, hemoglobin 11.2, potassium 3.9, BUN 42, creatinine 7.27. Results of EGD noted. ASSESSMENT: 1. Right lung mass with right pleural effusion. Malignancy is highly possible. 2. End-stage kidney disease on peritoneal dialysis. 3. Diabetic peripheral neuropathy. 4. Essential hypertension history of. 5. Hyperlipidemia. 6. Hypotension, multifactorial. 7. Severe peptic ulcer disease with gastric ulcer, duodenal ulcer with duodenitis, gastritis. Severe esophagitis. PLAN: Care was discussed with Dr. Sherwood at length. Per Pulmonary, Dr. Gardiner, patient to have outpatient follow up with Dr. Williamson. The patient again was reminded about cessation of smoking. Overall prognosis is guarded. The patient also seen by Dr. Anna from Nephrology. The patient is to continue with 1.5 solution treatment. IV fluids are to continue. The patient's condition still somewhat unstable. Follow closely. Expect the patient to be in the hospital for at least another 24 hours. MMODL / IJN: [id number] /
[2019-02-14] MEDS: ATORVASTATIN 20 MG TAB PO SCH (22:34)
[2019-02-14 23:24] LABS: Glucose,Whole Blood 120 mg/dL (75-99)
[2019-02-15] MEDS: MIDODRINE 5 MG TAB PO SCH ×5 (06:12→21:33)
[2019-02-15] MEDS: DIALYSIS (PERIT 1.5%) 2,000 ML 30 G/2,000 ML BAG INTRAPERIT SCH ×4 (06:15→23:07)
[2019-02-15 07:12] LABS: Glucose,Whole Blood 119 mg/dL (75-99)
--- NOTE | 2019-02-15 08:37 | XR ---
EXAMINATION TYPE: XR chest 2V DATE OF EXAM: 02/15/2019 COMPARISON: 02/13/2019 HISTORY: Shortness of breath TECHNIQUE: Frontal and lateral views of the chest are obtained. FINDINGS: Scattered senescent parenchymal changes noted. Hyperinflation compatible with COPD. Persistent pleural-parenchymal opacity right midlung zone and right lung base with loculated effusion . Overall no significant change appreciated. Heart size is stable. Mediastinal structures are stable and grossly unremarkable. No evidence for hilar prominence. Degenerative changes dorsal spine. IMPRESSION: 1. Persistent pleural-parenchymal opacity right midlung zone and right lung base with loculated effus ion. Overall no significant change appreciated.
[2019-02-15] MEDS: INSULIN ASPART (NovoLOG) 100 UNIT/ML VIAL SQ SCH ×4 (09:22→20:33)
--- NOTE | 2019-02-15 11:02 | P.PN ---
Subjective Progress Note Date: 02/15/19 Principal diagnosis: Upper GI bleed Status post EGD yesterday for evaluation of acute coffee-ground hematemesis with findings of 3 nonbleeding gastric ulcers duodenitis ulceration in the duodenal bulb and sweep moderate gastritis LA grade D esophagitis with ulceration in the distal esophagus. Patient is not sleeping well through the night slightly restless this morning. Nursing reports blood pressures have been running low systolically 70s-90s. No further episodes of coffee-ground emesis hematemesis. No melena. Hemoglobin yesterday 11.2 CBC is pending this morning. Denies abdominal pain. Objective - Vital Signs Vital signs: Vital Signs Temp 97.5 F L 02/15/19 06:17 Pulse 80 02/15/19 07:59 Resp 16 02/15/19 07:57 BP 105/66 02/15/19 10:50 Pulse Ox 94 L 02/15/19 06:46 Intake & Output 02/14/19 02/15/19 02/15/19 18:59 06:59 18:59 Intake Total 120 800 Balance 120 800 Intake: Intake, IV Titration 800 Amount Sodium Chloride 0.9% 1, 800 000 ml @ 100 mls/hr IV . Q10H [facility] Rx#:[id number] Oral 120 Other: Voiding Method CAPD CAPD CAPD # Voids 3 1 - Exam General appearance: The patient is alert, oriented, in no acute distress. HET: Head is normocephalic and atraumatic. Pupils are equal and reactive. Oropharynx is clear without lesions. Neck: Supple without lymphadenopathy. Trachea midline. Heart: S1 S2. Regular rate and rhythm. Lungs: No crackles or wheezes are heard. Bilateral diminishment in bases greater on right and left Abdomen: Soft, nontender, nondistended with bowel sounds. No peritoneal signs. No palpable organomegaly or masses. Extremities: Normal skin color and turgor. No cyanosis, rash, ulceration, clubbing, or edema. Radial and pedal pulses are 2/4 bilaterally. Peritoneal catheter without drainage hematoma or erythema. Neurological: No focal deficits. Strength and sensation are grossly intact. - Labs CBC & Chem 7: 02/14/19 11:43 02/14/19 11:43 Labs: Abnormal Lab Results - Last 24 Hours (Table) 02/14/19 02/14/19 02/14/19 Range/Units 11:43 11:43 16:39 Hgb 11.2 L (11.4-16.0) gm/dL MCHC 29.9 L (31.0-37.0) g/dL RDW 15.7 H (11.5-15.5) % Plt Count 133 L (150-450) k/uL Lymphocytes # 0.4 L (1.0-4.8) k/uL Sodium 136 L (137-145) mmol/L Chloride 97 L (98-107) mmol/L Carbon Dioxide 18 L (22-30) mmol/L BUN 42 H (7-17) mg/dL Creatinine 7.27 H* (0.52-1.04) mg/dL POC Glucose (mg/dL) 68 L (75-99) mg/dL Calcium 7.2 L (8.4-10.2) mg/dL 02/14/19 02/14/19 02/15/19 Range/Units 19:53 23:12 07:00 Hgb (11.4-16.0) gm/dL MCHC (31.0-37.0) g/dL RDW (11.5-15.5) % Plt Count (150-450) k/uL Lymphocytes # (1.0-4.8) k/uL Sodium (137-145) mmol/L Chloride (98-107) mmol/L Carbon Dioxide (22-30) mmol/L BUN (7-17) mg/dL Creatinine (0.52-1.04) mg/dL POC Glucose (mg/dL) 115 H 120 H 119 H (75-99) mg/dL Calcium (8.4-10.2) mg/dL Microbiology - Last 24 Hours (Table) 02/14/19 06:00 Gram Stain - Preliminary Peritoneal Fluid Body Fluid Culture - Preliminary 02/13/19 00:00 Anaerobic Culture - Preliminary Catheter Site Assessment and Plan (1) Coffee ground emesis Narrative/Plan: Acute upper GI bleed secondary to multiple gastric duodenal ulcers as well as LA grade D esophagitis with ulceration biopsies pending. Current Visit: Yes Status: Acute Code(s): K92.0 - HEMATEMESIS SNOMED Code(s): 07055163 (2) Mass of right lung Narrative/Plan: Pulmonary consultation Current Visit: Yes Status: Acute Code(s): R91.8 - OTHER NONSPECIFIC ABNORMAL FINDING OF LUNG FIELD SNOMED Code(s): 391499239 (3) End-stage renal disease on peritoneal dialysis Narrative/Plan: Nephrology consultation Current Visit: Yes Status: Acute Code(s): N18.6 - END STAGE RENAL DISEASE; Z99.2 - DEPENDENCE ON RENAL DIALYSIS SNOMED Code(s): 83428944 (4) Acute blood loss anemia Current Visit: Yes Status: Acute Code(s): D62 - ACUTE POSTHEMORRHAGIC ANEMIA SNOMED Code(s): 322587985 Plan: 1. Carafate 1 g before meals twice a day. Protonix 40 mg IV twice a day. Clear liquid diet and advance as tolerated. CBC monitoring. We'll continue to follow. Assessment and plan a care discussed with Dr. Sherwood
[2019-02-15] MEDS ORDERED: DIALYSIS (PERIT 1.5%) 2,000 ML 27 G/1,800 ML BAG INTRAPERIT ONE (11:15)
[2019-02-15 11:25] LABS: Glucose,Whole Blood 153 mg/dL (75-99)
[2019-02-15] MEDS: PANTOPRAZOLE 40 MG/10 ML VIAL IVP SCH ×2 (12:00→20:23)
[2019-02-15] MEDS: SUCRALFATE 1 GM TAB PO SCH ×2 (12:01→20:15)
[2019-02-15] MEDS ORDERED: MIDODRINE 5 MG TAB PO STA (12:14)
[2019-02-15 12:32] LABS: Potassium 3.2 mmol/L (3.5-5.1)
[2019-02-15 12:38] LABS: Basophils % (A) 0 %; Eosinophils # (A) 0.1 k/uL (0-0.7); Eosinophils % (A) 1 %; HCT 37.6 % (34.0-46.0); HGB 11.3 gm/dL (11.4-16.0); Hypochromasia Marked; Lymphocytes # (A) 0.6 k/uL (1.0-4.8); Lymphocytes % (A) 7 %; MCH 27.7 pg (25.0-35.0); MCV 92.1 fL (80.0-100.0); Mean Platelet Volume 7.1; Monocytes # (A) 0.2 k/uL (0-1.0); Monocytes % (A) 3 %; Neutrophils # (A) 6.3 k/uL (1.3-7.7); Neutrophils % (A) 84 %; Platelet Count 105 k/uL (150-450); RBC 4.08 m/uL (3.80-5.40); RDW 15.4 % (11.5-15.5); WBC 7.5 k/uL (3.8-10.6)
[2019-02-15] MEDS ORDERED: ALBUMIN HUMAN 5% 250 ML in EMPTY BAG 1 BAG IVPB ONE (12:59)
[2019-02-15] MEDS: NICOTINE 21MG/24HR PATCH TRANSDERM SCH (13:13)
[2019-02-15] MEDS: SODIUM CHLORIDE 0.9% 1,000 ML IV SCH ×2 (14:45→20:24)
--- NOTE | 2019-02-15 14:55 | P.PN ---
Subjective Progress Note Date: 02/15/19 Principal diagnosis: Moderate-sized right-sided pleural effusion, rule out malignant pleural effusion, right upper lobe masslike consolidation, right lower lobe atelectasis/consolidation right-sided pleural effusion, ESRD, on PD This is a 63-year-old female patient with known history of COPD, diabetes mellitus, hypertension hyperlipidemia and she has also dialysis-dependent renal failure and the patient is undergoing peritoneal dialysis. The patient came into the hospital feeling weak, dizzy and lightheaded. She stated that she was hardly able to walk. She hasn't been eating or drinking for several days. She stated that she had only 2 bottles of water over the past few days. No nausea. No vomiting. No diarrhea. No altered mentation. She had been undergoing Radha toneal dialysis. No fever. No chills. The patient had a chest x-ray in the emergency department that showed right basilar opacity/mass/atelectasis with effusion. This was followed up by CAT scan of the chest that showed a moderate- sized right-sided pleural effusion in addition to masslike consolidation in the right lower lobe and the right upper lobe. There was also enlarged right paratracheal lymph nodes measuring 18 x 12 mm in size and anterior mediastinal lymph node measuring 1.5 cm. There is a questionable right hilar mass in addition. This CAT scan was done without contrast. Another masslike consolidation is present in the right upper lobe lateral chest area measuring 6 x 2.5 cm in size. No focal bony destruction. The patient during this current hospital stay. Large-volume coffee-ground emesis 5. For that reason the patient was seen by gastroenterology and the patient is going to undergo an EGD today. Upon further questioning, the patient is a chronic smoker. She has recently seen Dr. Williamson regarding possibility of lung cancer. No further recommendations are made by her continuing education specialist in that regard. On 02/15/2019 patient seen in follow-up on medical surgical floor. The rapid response team was called in regards to patient's hypotension today. The blood pressure dropped down as low as 57/35, and has been noted to be more lethargic. Afebrile, she is on room air, maintaining good oxygenation, patient had her peritoneal dialysis exchange this morning, and she had 200 mL of fluid removed with peritoneal dialysis this morning. She was started on oral Midrin, she is receiving IV normal saline at a rate of 100 ML per hour, and we'll give the patient 250 mL of 5% albumin. She has had no further vomiting or diarrhea, no hematemesis, no melena. Today's hemoglobin is 11.3, with blood cell count is 7.5, sodium is 135, potassium 3.2, CO2 is 19, BUN is 39, creatinine is 6.15, peritoneal fluid cultures have shown no growth so far. Patient's lung sounds are diminished, with the bibasilar crackles. She is arousable to verbal stimuli, but drowsy. Denies any chest pain. Objective - Vital Signs Vital signs: Vital Signs Temp 97.5 F L 02/15/19 06:17 Pulse 81 02/15/19 13:24 Resp 16 02/15/19 07:57 BP 99/46 02/15/19 13:24 Pulse Ox 94 L 02/15/19 06:46 Intake & Output 02/14/19 02/15/19 02/15/19 18:59 06:59 18:59 Intake Total 120 800 850 Balance 120 800 850 Intake: Intake, IV Titration 800 850 Amount Albumin Human 5% 250 ml 250 In Empty Bag 1 bag @ 250 mls/hr IVPB ONCE ONE Rx#: [id number] Sodium Chloride 0.9% 1, 800 600 000 ml @ 100 mls/hr IV . Q10H [facility] Rx#:[id number] Oral 120 Other: Voiding Method CAPD CAPD CAPD # Voids 3 1 0 - Exam GENERAL EXAM:pleasant, 63-year-old female, lethargic, but arousable to verbal stimuli on room air, comfortable in no apparent distress. HEAD: Normocephalic/atraumatic. EYES: Normal reaction of pupils, equal size. Conjunctiva pink, sclera white. NOSE: Clear with pink turbinates. THROAT: No erythema or exudates. NECK: No masses, no JVD, no thyroid enlargement, no adenopathy. CHEST: No chest wall deformity. Symmetrical expansion. LUNGS: Equal air entry with bibasilar crackles, diminished breath sounds bilaterally, CVS: Regular rate and rhythm, normal S1 and S2, no gallops, no murmurs, no rubs ABDOMEN: Soft, nontender. No hepatosplenomegaly, normal bowel sounds, no guarding or rigidity. Dialysis catheter is in place, and the insertion site is clean joint intact, no drainage EXTREMITIES: No clubbing, no edema, no cyanosis, 2+ pulses and upper and lower extremities. MUSCULOSKELETAL: Muscle strength and tone normal. SPINE: No scoliosis or deformity SKIN: No rashes CENTRAL NERVOUS SYSTEM: Lethargic, but arousable oriented -2. No focal deficits, tone is normal in all 4 extremities. - Labs CBC & Chem 7: 02/15/19 11:23 02/15/19 11:23 Labs: Abnormal Lab Results - Last 24 Hours (Table) 02/14/19 02/14/19 02/14/19 Range/Units 16:39 19:53 23:12 Hgb (11.4-16.0) gm/dL MCHC (31.0-37.0) g/dL Plt Count (150-450) k/uL Lymphocytes # (1.0-4.8) k/uL Sodium (137-145) mmol/L Potassium (3.5-5.1) mmol/L Carbon Dioxide (22-30) mmol/L BUN (7-17) mg/dL Creatinine (0.52-1.04) mg/dL Glucose (74-99) mg/dL POC Glucose (mg/dL) 68 L 115 H 120 H (75-99) mg/dL Calcium (8.4-10.2) mg/dL 02/15/19 02/15/19 02/15/19 Range/Units 07:00 11:13 11:23 Hgb 11.3 L (11.4-16.0) gm/dL MCHC 30.0 L (31.0-37.0) g/dL Plt Count 105 L (150-450) k/uL Lymphocytes # 0.6 L (1.0-4.8) k/uL Sodium (137-145) mmol/L Potassium (3.5-5.1) mmol/L Carbon Dioxide (22-30) mmol/L BUN (7-17) mg/dL Creatinine (0.52-1.04) mg/dL Glucose (74-99) mg/dL POC Glucose (mg/dL) 119 H 153 H (75-99) mg/dL Calcium (8.4-10.2) mg/dL 02/15/19 Range/Units 11:23 Hgb (11.4-16.0) gm/dL MCHC (31.0-37.0) g/dL Plt Count (150-450) k/uL Lymphocytes # (1.0-4.8) k/uL Sodium 135 L (137-145) mmol/L Potassium 3.2 L (3.5-5.1) mmol/L Carbon Dioxide 19 L (22-30) mmol/L BUN 39 H (7-17) mg/dL Creatinine 6.15 H (0.52-1.04) mg/dL Glucose 149 H (74-99) mg/dL POC Glucose (mg/dL) (75-99) mg/dL Calcium 7.0 L (8.4-10.2) mg/dL Microbiology - Last 24 Hours (Table) 02/14/19 06:00 Gram Stain - Preliminary Peritoneal Fluid Body Fluid Culture - Preliminary Assessment and Plan Plan: 1. Altered mental status, hypotension, rule out possibility of sepsis versus hypovolemia related to nausea and vomiting. Patient is receiving IV fluids, return of fluid culture showed no growth so far, we'll send blood cultures chest x-ray showed persistent pleural parenchymal opacity within the right midlung zone and right lung base atelectasis and effusion suspicious for lung mass, no acute findings 2. moderate-sized right-sided pleural effusion, rule out malignant pleural effusion. Rule out pleural effusion related to peritoneal dialysis and fluid leaking into the pleural space 3 right upper lobe masslike consolidation in the upper lateral chest wall area measuring 6 x 2.5 cm in size is sedated with questionable hilar mass, paratracheal and anterior mediastinal lymphadenopathy. Consider possibility of underlying lung cancer based on these findings. 4. right lower lobe atelectasis/consolidation along with right-sided pleural effusion 5. coffee-ground emesis, consider upper GI bleed 6. End stage disease on continue hemodialysis, PD 7. COPD 8. diabetes mellitus 9. hypertension 10. hyperlipidemia Plan: Discussed the case with the nephrology, patient is receiving IV fluids, will give the patient dose of 5% albumin, we'll proceed with peritoneal dialysis exchanges in view of patient's encephalopathy. We'll obtain a set of blood cultures, peritoneal fluid culture showed no growth so far, hemoglobin is stable, there has been no recurrence of hematemesis or melena. Is improving, was started on Midrin, no fever or chills. Chest x-ray has been reviewed with Dr. Gardiner, did not show any new pulmonary process and the findings of the right upper lobe masslike consolidation suspicious for lung mass and right-sided pleural effusion are stable in appearance. We will hold off on antibiotics, will obtain a pro-calcitonin level. We will with the results of the blood cultures and peritoneal fluid culture. I performed a history & physical examination of the patient and discussed their management with my nurse practitioner, Cony Thurston. I reviewed the nurse practitioner's note and agree with the documented findings and plan of care. Lung sounds are positive for bibasilar crackles. The findings and the impression was discussed with the patient. I attest to the documentation by the nurse practitioner. Time with Patient: Greater than 30
[2019-02-15 15:49] LABS: Hemoglobin A1C 8.1 % (4.0-6.0)
[2019-02-15] MEDS ORDERED: MORPHINE SULFATE 2 MG/ML SYRINGE IM STA (16:30)
[2019-02-15] MEDS ORDERED: MORPHINE SULFATE 2 MG/ML SYRINGE IV STA (16:30)
--- NOTE | 2019-02-15 18:43 | PN ---
PROGRESS NOTE Patient is seen for followup for end-stage renal disease. She was seen this morning. Patient was confused last night. She has also complained of shortness of breath and asked to be emptied from the PD fluid. The dialysis was held last night secondary to hypotension. Patient remains on IV fluids. The midodrine was increased; however, patient continues to be hypotensive. She did go down into the 60s, and since we are not able to continue with her dialysis, I will start her on pressors and move her to the ICU. No active bleeding has been noted overnight. There was no evidence of infection in the PD fluid. On examination this morning, patient was awake. She was not in any acute distress. She was confused at times. Blood pressure was 84/46, heart rate 70 per minute. Patient is afebrile. EXAMINATION OF THE HEART: S1 and S2. EXAMINATION OF LUNGS: Decreased breath sounds at the bases. ABDOMEN: Soft, non-tender. Examination of lower extremities shows no significant edema. Chronic skin changes are noted. Labs show hemoglobin 11.3, potassium 3.2, sodium 135. White cell count is 7.5. ASSESSMENT: 1. End-stage renal disease, on peritoneal dialysis. We have not been able to dialyze the patient adequately secondary to hypotension. However, we have only been using the 1.5% solution, which does not pull a lot of fluid. Her creatinine, though, is slightly better from 8.26 on admission to 6.15 now. I will continue with the midodrine. We can start Levophed and we will maintain the patient on 1.5% solution 2 L q.6 hours. 2. Hypotension, etiology unclear. No evidence of active bleeding. Serum cortisol was not low. No clear infection identified. However, patient may have underlying pneumonia. She is not running a fever and does not have a white count. 3. Hypokalemia associated with peritoneal dialysis. We will replace. 4. Gastrointestinal bleed, status post endoscopy which showed multiple ulcers but no active bleeding. Patient is maintained on Protonix. 5. Right lung mass, being followed by Pulmonology. PLAN: Start pressors. Continue peritoneal dialysis 1.5% solution q.6 hours and transfer patient to ICU. MMODL / IJN: [id number] /
--- NOTE | 2019-02-15 19:56 | XR ---
EXAMINATION TYPE: XR chest 1V portable DATE OF EXAM: 02/15/2019 COMPARISON: 02/15/2019 HISTORY: Intubation TECHNIQUE: Single frontal view of the chest is obtained. FINDINGS: Endotracheal tube is 3 cm from the candis. There is blunting of the right costophrenic ang le. There is infiltrate in the right lower lobe. There is coarsening of the lung markings left lower lobe. There is nasogastric tube. There are chest leads. IMPRESSION: Right lower lobe pneumonia and pleural fluid unchanged. No heart failure. Endotracheal t ube in good position.
[2019-02-15 19:59] LABS: ABG Base Excess -6.4 mmol/L; ABG HCO3 20 mmol/L (21-25); ABG Oxygen Saturation 99.9 % (94-97); ABG PCO2 43 mmHg (35-45); ABG PH 7.28 (7.35-7.45); ABG PO2 >400 mmHg (83-108); ABG TCO2 22 mmol/L (19-24)
[2019-02-15] MEDS: NOREPINEPHRINE 4 MG in SODIUM CHLORIDE 0.9% 250 ML IV SCH (19:59)
[2019-02-15] MEDS: PROPOFOL 1,000 MG in EMPTY BAG 1 BAG IV SCH (20:00)
[2019-02-15 20:21] LABS: Glucose,Whole Blood 160 mg/dL (75-99)
[2019-02-15] MEDS: ATORVASTATIN 20 MG TAB PO SCH (20:23)
[2019-02-15] MEDS: CHLORHEXIDINE GLUCONATE 15 ML CUP MUCOUS MEM SCH (20:23)
[2019-02-15 20:36] LABS: Basophils % (A) 0 %; Eosinophils # (A) 0.2 k/uL (0-0.7); Eosinophils % (A) 1 %; HCT 30.9 % (34.0-46.0); Hypochromasia Moderate; Lymphocytes # (A) 0.6 k/uL (1.0-4.8); Lymphocytes % (A) 5 %; MCH 27.4 pg (25.0-35.0); MCHC 30.2 g/dL (31.0-37.0); MCV 90.8 fL (80.0-100.0); Mean Platelet Volume 7.4; Monocytes # (A) 0.2 k/uL (0-1.0); Monocytes % (A) 2 %; Neutrophils # (A) 10.6 k/uL (1.3-7.7); Neutrophils % (A) 89 %; Platelet Count 140 k/uL (150-450); RDW 15.6 % (11.5-15.5)
[2019-02-15 20:42] LABS: HGB 9.3 gm/dL (11.4-16.0)
[2019-02-15 20:48] LABS: Calcium 6.7 mg/dL (8.4-10.2); Magnesium 1.4 mg/dL (1.6-2.3); Phosphorus 5.3 mg/dL (2.5-4.5); Potassium 2.8 mmol/L (3.5-5.1)
--- NOTE | 2019-02-15 22:42 | CT ---
EXAM: CT Head Without Intravenous Contrast CLINICAL HISTORY: ITS.REASON CT Reason: mental status changes TECHNIQUE: Axial computed tomography images of the head/brain without intravenous contrast. CTDI is 49.10 mGy and DLP is 1095 mGy-cm. This CT exam was performed using one or more of the following dose reduction techniques: automated exposure control, adjustment of the mA and/or kV according to patient size, and/or use of iterative reconstruction technique. COMPARISON: CT head 07/17/16. FINDINGS: Brain: No acute intracranial hemorrhage, mass effect or edema. No evidence of acute cortical stroke. Periventricular small vessel ischemic change. No midline shift or hydrocephalus. Diffuse parenchymal atrophy. Dense atherosclerotic calcifications of the carotid siphons and vertebrobasilar arteries. Old lacunar infarct involving the left head of the caudate and left thalamus. Ventricles: See above. Bones/joints: Unremarkable. No acute fracture. Soft tissues: Unremarkable. Sinuses: Unremarkable as visualized. No acute sinusitis. Mastoid air cells: See below. Auditory system: Opacified left middle ear and mastoid air cells and right mastoid air cells. IMPRESSION: No evidence of acute intracranial pathology. Diffuse involutional changes. Consider bilateral mastoiditis and left otitis media.
[2019-02-15] MEDS ORDERED: Potassium Replacement Protocol 1 EACH MISC MISCELLANE PRN (23:15)
[2019-02-15] MEDS ORDERED: Magnesium Replacement Protocol 1 EACH MISC MISCELLANE PRN (23:16)
--- NOTE | 2019-02-15 23:59 | PN ---
PROGRESS NOTE DATE OF SERVICE: 02/15/2019. PRESENTING COMPLAINT: Hypertension. INTERVAL HISTORY: This patient initially presented feeling weak, tired, run down. The patient had coffee- ground emesis and the patient was found to have severe ulceration of duodenum and stomach. Also patient has a lung mass. Patient is also on peritoneal dialysis. The patient has been hypotensive. This morning patient became further hypotensive. A-Team was called and the patient eventually moved to the ICU. The patient went into respiratory distress, bradycardic and had to be intubated. FiO2 45, PEEP of 5. The patient is on Levophed and propofol. REVIEW OF SYSTEMS: Patient intubated. CURRENT MEDICATIONS: Reviewed that include Levophed and propofol. PHYSICAL EXAMINATION: Temperature 97.4, pulse 64, respirations 16, blood pressure 123/63, pulse ox 100 percent on the ventilator. GENERAL APPEARANCE: Lying in bed intubated. EYES: Pupils equal. Conjunctivae normal. HEENT: External appearance of nose and ears normal. Oral cavity endotracheal tube. NECK: JVD unable to assess. Mass not palpable. RESPIRATORY: Effort increased. LUNGS: Diminished breath sounds some crackles. CARDIOVASCULAR: 1st and 2nd sounds. No edema. ABDOMEN: Soft, nontender. Liver and spleen not palpable. Peritoneal dialysis catheter in place. NEUROLOGIC: Pupils equal. No facial asymmetry. INVESTIGATIONS: White count 12, hemoglobin 9.3, potassium 2.8, BUN 36, creatinine 5.79. Chest x-ray, right lower lobe pneumonia. ASSESSMENT: 1. Right lung mass with right pleural effusion, malignancy highly possible. 2. Right lower lobe pneumonia suspect gram-negative organism/aspiration. 3. End-stage kidney disease on peritoneal dialysis. 4. Diabetic peripheral neuropathy. 5. History of essential hypertension. 6. Hyperlipidemia. 7. Hypotensive shock, multifactorial. 8. Severe peptic ulcer disease with gastric ulcer, duodenal ulcer, duodenitis, gastritis, severe esophagitis. 9. Acute hypoxic respiratory failure, multifactorial, on ventilator support. 10.Acute severe chronic obstructive pulmonary disease exacerbation in a smoker. PLAN: Prognosis is guarded. The patient is in the ICU, being followed by Dr. Gardiner. Continue supportive care. Antibiotics. Pressure support. Prognosis not good. MMODL / IJN: [id number] /
[2019-02-16] MEDS ORDERED: CALCIUM GLUCONATE 1 GM in SODIUM CHLORIDE 0.9% 100 ML IVPB ONE ×2
[2019-02-16] MEDS: MAGNESIUM SULFATE-D5W PMX 1 GM in DEXTROSE/WATER 1 100ML.BAG IVPB SCH ×2 (01:03→03:51)
[2019-02-16] MEDS: POTASSIUM CHLORIDE 20 MEQ in WATER FOR INJECTION 1 100ML.BAG IVPB SCH ×3 (01:03→05:48)
[2019-02-16 01:27] LABS: Glucose,Whole Blood 109 mg/dL (75-99)
[2019-02-16 04:17] LABS: ABG Base Excess -8.1 mmol/L; ABG HCO3 19 mmol/L (21-25); ABG Oxygen Saturation 98.4 % (94-97); ABG PCO2 40 mmHg (35-45); ABG PH 7.28 (7.35-7.45); ABG PO2 140 mmHg (83-108); ABG TCO2 20 mmol/L (19-24)
[2019-02-16 04:27] LABS: Basophils % (A) 0 %; Eosinophils # (A) 0.2 k/uL (0-0.7); Eosinophils % (A) 1 %; HCT 33.6 % (34.0-46.0); HGB 10.4 gm/dL (11.4-16.0); Hypochromasia Moderate; Lymphocytes # (A) 0.6 k/uL (1.0-4.8); Lymphocytes % (A) 5 %; MCH 28.1 pg (25.0-35.0); MCV 90.8 fL (80.0-100.0); Mean Platelet Volume 7.6; Monocytes # (A) 0.2 k/uL (0-1.0); Monocytes % (A) 2 %; Neutrophils % (A) 91 %; Platelet Count 162 k/uL (150-450); RDW 15.5 % (11.5-15.5); WBC 13.3 k/uL (3.8-10.6)
[2019-02-16] MEDS: DIALYSIS (PERIT 1.5%) 2,000 ML 30 G/2,000 ML BAG INTRAPERIT SCH ×3 (04:29→16:43)
[2019-02-16 04:30] LABS: Ionized Calcium 4.3 mg/dL (4.5-5.3)
[2019-02-16 04:41] LABS: Magnesium 1.9 mg/dL (1.6-2.3); Phosphorus 4.8 mg/dL (2.5-4.5); Potassium 3.4 mmol/L (3.5-5.1)
[2019-02-16] MEDS: SODIUM CHLORIDE 0.9% 1,000 ML IV SCH ×2 (05:48→16:43)
[2019-02-16 06:07] LABS: Glucose,Whole Blood 132 mg/dL (75-99)
--- NOTE | 2019-02-16 06:30 | PCN ---
PROCEDURE NOTE PREOP DIAGNOSIS: Hypertension. POSTOP DIAGNOSIS: Hypertension. ARTERIAL LINE PLACEMENT: Indications: Hemodynamic monitoring. A time-out was completed verifying correct patient, procedure, site, positioning, and implant(s) or special equipment if applicable. Ermias's test was performed to ensure adequate perfusion. The patient's right groin was prepped and draped in sterile fashion. 1% Lidocaine was used to anesthetize the area. An 18G Arrow arterial line was introduced into the femoral artery. The catheter was threaded over the guide wire and the needle was removed with appropriate pulsatile blood return. Blood loss was minimal. The catheter was then sutured in place to the skin and a sterile dressing applied. Perfusion to the extremity distal to the point of catheter insertion was checked and found to be adequate. The patient tolerated the procedure well and there were no complications. MMODL / IJN: [id number] /
--- NOTE | 2019-02-16 06:33 | PCN ---
PROCEDURE NOTE TRIPLE LUMEN CATHETER PLACEMENT: Indication Hemodynamic monitoring/Intravenous access. A time-out was completed verifying correct patient, procedure, site, positioning, and implant(s) or special equipment if applicable. The patient was placed in a dependent position appropriate for triple lumen catheter placement based on the vein to be cannulated. The patient's right groin was prepped and draped in sterile fashion. 1% Lidocaine was used to anesthetize the surrounding skin area. A triple lumen 9F Cordis catheter was introduced into the common femoral vein using Seldinger technique. The catheter was threaded smoothly over the guide wire and appropriate blood return was obtained. Each lumen of the catheter was evacuated of air and flushed with sterile saline. The catheter was then sutured in place to the skin and a sterile dressing applied. Perfusion to the extremity distal to the point of catheter insertion was checked and found to be adequate. No bedside complications or bleeding. MMODL / IJN: [id number] /
--- NOTE | 2019-02-16 06:36 | XR ---
EXAMINATION TYPE: XR chest 1V portable DATE OF EXAM: 02/16/2019 HISTORY: Tube placement. REFERENCE: Previous study dated 02/15/2019. FINDINGS: The patient is ET tube and NG tube remain in place, unchanged in appearance. There is continuing right lower lobe infiltrate. There is right upper lobe infiltrate present to a le sser extent. There is a moderate right-sided pleural effusion. Heart size is obscured. The left lung is relatively clear. IMPRESSION: CONTINUING RIGHT BASILAR AIRSPACE DISEASE AND RIGHT-SIDED EFFUSION.
[2019-02-16] MEDS: INSULIN ASPART (NovoLOG) 100 UNIT/ML VIAL SQ SCH ×4 (06:41→23:56)
[2019-02-16] MEDS: MIDODRINE 5 MG TAB PO SCH ×4 (06:41→20:56)
[2019-02-16] MEDS: SUCRALFATE 1 GM TAB PO SCH ×2 (06:41→17:55)
[2019-02-16] MEDS: PROPOFOL 1,000 MG in EMPTY BAG 1 BAG IV SCH ×4 (06:44→21:08)
[2019-02-16] MEDS: NICOTINE 21MG/24HR PATCH TRANSDERM SCH (09:30)
[2019-02-16] MEDS ORDERED: RX INFO: IV CONTRAST WAS GIVEN 1 EACH MISC MISCELLANE PRN (09:30)
[2019-02-16] MEDS: NOREPINEPHRINE 4 MG in SODIUM CHLORIDE 0.9% 250 ML IV SCH ×2 (09:41→18:16)
[2019-02-16] MEDS: PANTOPRAZOLE 40 MG/10 ML VIAL IVP SCH ×2 (09:41→20:55)
[2019-02-16] MEDS: CHLORHEXIDINE GLUCONATE 15 ML CUP MUCOUS MEM SCH ×2 (09:41→20:55)
[2019-02-16] MEDS: metroNIDAZOLE-NS PMX 500 MG in SALINE 1 100ML.BAG IVPB SCH ×2 (11:00→16:45)
[2019-02-16] MEDS: IPRATROPIUM-ALBUTEROL 3 ML NEB INHALATION SCH ×4 (11:14→23:01)
[2019-02-16 12:13] LABS: Glucose,Whole Blood 64 mg/dL (75-99)
--- NOTE | 2019-02-16 14:01 | P.PN ---
Subjective Progress Note Date: 02/16/19 This is a 63-year-old female patient with known history of COPD, diabetes mellitus, hypertension hyperlipidemia and she has also dialysis-dependent renal failure and the patient is undergoing peritoneal dialysis. The patient came into the hospital feeling weak, dizzy and lightheaded. She stated that she was hardly able to walk. She hasn't been eating or drinking for several days. She stated that she had only 2 bottles of water over the past few days. No nausea. No vomiting. No diarrhea. No altered mentation. She had been undergoing Peritoneal dialysis. No fever. No chills. The patient had a chest x-ray in the emergency department that showed right basilar opacity/mass/atelectasis with effusion. This was followed up by CAT scan of the chest that showed a moderate- sized right-sided pleural effusion in addition to masslike consolidation in the right lower lobe and the right upper lobe. There was also enlarged right paratracheal lymph nodes measuring 18 x 12 mm in size and anterior mediastinal lymph node measuring 1.5 cm. There is a questionable right hilar mass in addition. This CAT scan was done without contrast. Another masslike consolidation is present in the right upper lobe lateral chest area measuring 6 x 2.5 cm in size. No focal bony destruction. The patient during this current hospital stay. Large-volume coffee-ground emesis 5. For that reason the patient was seen by gastroenterology and the patient is going to undergo an EGD today. Upon further questioning, the patient is a chronic smoker. She has recently seen Dr. Williamson regarding possibility of lung cancer. No further recommendations are made by her maintenance repairman in that regard. On 02/15/2019 patient seen in follow-up on medical surgical floor. The rapid response team was called in regards to patient's hypotension today. The blood pressure dropped down as low as 57/35, and has been noted to be more lethargic. Afebrile, she is on room air, maintaining good oxygenation, patient had her per itoneal dialysis exchange this morning, and she had 200 mL of fluid removed with peritoneal dialysis this morning. She was started on oral Midrin, she is receiving IV normal saline at a rate of 100 ML per hour, and we'll give the patient 250 mL of 5% albumin. She has had no further vomiting or diarrhea, no hematemesis, no melena. Today's hemoglobin is 11.3, with blood cell count is 7.5, sodium is 135, potassium 3.2, CO2 is 19, BUN is 39, creatinine is 6.15, peritoneal fluid cultures have shown no growth so far. Patient's lung sounds are diminished, with the bibasilar crackles. She is arousable to verbal stimuli, but drowsy. Denies any chest pain. On 02/16/2019 I'm seeing this patient for a follow-up. The patient got transferred to the intensive care unit as the patient was having episodes of hypotension. The patient was started on norepinephrine infusion. Repeat blood work showed electrodes imbalance with hypokalemia and potassium level was being replaced. Note that the patient acutely became bradycardic and hypotensive and unresponsive and she went to respiratory failure. At that point, the patient had to be intubated and placed on a mechanical ventilator. I was informed of these changes that occurred yesterday. Overnight, the patient was kept on a mechanical ventilator and this morning the patient remains at the rate of 16 with a tidal volume of 400 and FiO2 of 40% and a PEEP of 5. The chest x-ray from today shows that the ET tube is in a good location. There is right basilar airspace disease and right-sided pleural effusion which has been noted on a previous CAT scan of the chest. Based on the diminished level of consciousness, the patient is a CAT scan of the brain and the findings are essentially negative for any acute abnormalities. There was no evidence of any PARACHUTIST/COMBATANT DIVER QUALIFIED lesions bleed or stroke. Overnight, the patient was kept on sedation and currently performs running at 50 g per KG per minute. She is hypotensive. Pressors are being titrated to maintain a mean artery pressure above 65 and the patient's levo fed is running currently at 0.2 g per KG per minute. No peritoneal dialysis performed today and then abdominal cavity is free of any PD fluids. The patient is afebrile. The patient's white cell count is at 13.3. The morning blood gas showed a pH of 7.28 with a pCO2 of 40. PO2 was 140. The patient is resting comfortably in bed and sedated for now. Family is at the bedside. Upon further questioning, the who happened to be my patient to move the patient was having symptoms of respiratory tract infection/pneumonia for almost 2-3 weeks and the patient was having increased cough and congestion. She did not receive any antibiotic therapy prior to her coming to the hospital. Her ascitic fluid cultures were negative. Blood cultures of been negative thus far. Serum bicarb level is at 17. Potassium level is minimal patient is up to 3.8. Glucose this morning is at 132. Serum ammonia level is at 44. Objective - Vital Signs Vital signs: Vital Signs Temp 98.6 F 02/16/19 12:00 Pulse 84 02/16/19 13:15 Resp 28 H 02/16/19 13:15 BP 78/31 02/15/19 16:30 Pulse Ox 99 02/16/19 13:15 Intake & Output 02/15/19 02/16/19 02/16/19 18:59 06:59 18:59 Intake Total 950 0329.509 6083.716 Output Total 0 Balance 950 1134.548 5141.716 Weight 60.1 kg Intake: IV 100 1721 951 Calcium Gluconate 1 gm In 100 Sodium Chloride 0.9% 100 ml @ 100 mls/hr IVPB ONCE ONE Rx#:[id number] Magnesium Sulfate-D5w Pmx 200 1 gm In Dextrose/Water 1 100ml.bag @ 100 mls/hr IVPB Q1H DANISHA Rx#: [id number] Potassium Chloride 20 meq 300 100 In Water For Injection 1 100ml.bag @ 50 mls/hr IVPB Q2H DANISHA Rx#: [id number] Sodium Chloride 0.9% 1, 100 1100 680 000 ml @ 100 mls/hr IV . Q10H DANISHA Rx#:[id number] art line pressure bag 21 21 cefTRIAXone 1 gm In 50 Sodium Chloride 0.9% 50 ml @ 100 mls/hr IVPB Q24HR DANISHA Rx#:[id number] metroNIDAZOLE-NS PMX 500 100 mg In Saline 1 100ml.bag @ 100 mls/hr IVPB Q8HR DANISHA Rx#:[id number] Intake, IV Titration 850 194.532 395.716 Amount Albumin Human 5% 250 ml 250 In Empty Bag 1 bag @ 250 mls/hr IVPB ONCE ONE Rx#: [id number] Norepinephrine 4 mg In 94.532 278.851 Sodium Chloride 0.9% 250 ml @ 0.05 MCG/KG/MIN 10. 369 mls/hr IV .Q24H DANISHA Rx#:[id number] Propofol 1,000 mg In 100.000 116.865 Empty Bag 1 bag @ Titrate IV .Q0M DANISHA Rx#: [id number] Sodium Chloride 0.9% 1, 600 000 ml @ 100 mls/hr IV . Q10H DANISHA Rx#:[id number] Output: Urine 0 Other: Voiding Method CAPD CAPD CAPD # Voids 0 ABP, PAP, CO, CI - Last Documented Arterial Blood Pressure 119/31 - Exam Gen. appearance, comfortable not in acute distress she is well sedated with Diprivan intubated on a mechanical ventilator. Head exam was generally normal. There was no scleral icterus or corneal arcus. Mucous membranes were moist. Neck was supple and without jugular venous distension, thyromegaly, or carotid bruits. Carotids were easily palpable bilaterally. There was no adenopathy. Lungs sounds are diminished on the right compared to the left. The patient has no wheezes or rhonchi. Cardiac exam revealed the PMI to be normally situated and sized. The rhythm was regular and no extrasystoles were noted during several minutes of auscultation. The first and second heart sounds were normal and physiologic splitting of the second heart sound was noted. There were no murmurs, rubs, clicks, or gallops. Abdominal exam revealed normal bowel sounds. The abdomen was soft, non-tender, and without masses, organomegaly, or appreciable enlargement of the abdominal aorta. The patient has a PD catheter in place and there is no direct tenderness or rebound tenderness or guarding. Active site of the catheter is dry clean and intact. Extremities revealed diminished pulses bilaterally and the patient has a femoral art line and triple lumen catheter in place. Trace edema and there is no cyanosis or clubbing. The patient has a functioning AV fistula in the left upper extremity. neurologically the patient is sedated. The patient has discrepancy in the size of pupils bilaterally and this is a chronic finding. No nystagmus. No clonus. She withdraws to painful sublation all 4 extremities to no neck stiffness. Examination of the skin revealed no evidence of significant rashes, suspicious appearing nevi or other concerning lesions. - Labs CBC & Chem 7: 02/16/19 04:15 02/16/19 10:18 Labs: Abnormal Lab Results - Last 24 Hours (Table) 02/14/19 02/15/19 02/15/19 Range/Units 11:43 15:00 18:12 WBC (3.8-10.6) k/uL RBC (3.80-5.40) m/uL Hgb (11.4-16.0) gm/dL Hct (34.0-46.0) % MCHC (31.0-37.0) g/dL RDW (11.5-15.5) % Plt Count (150-450) k/uL Neutrophils # (1.3-7.7) k/uL Lymphocytes # (1.0-4.8) k/uL ABG pH 7.28 L (7.35-7.45) ABG pO2 >400 H (83-108) mmHg ABG HCO3 20 L (21-25) mmol/L ABG O2 Saturation 99.9 H (94-97) % Sodium (137-145) mmol/L Potassium (3.5-5.1) mmol/L Carbon Dioxide (22-30) mmol/L BUN (7-17) mg/dL Creatinine (0.52-1.04) mg/dL Glucose (74-99) mg/dL POC Glucose (mg/dL) (75-99) mg/dL Hemoglobin A1c 8.1 H (4.0-6.0) % Calcium (8.4-10.2) mg/dL Ionized Calcium Dianelys (4.5-5.3) mg/dL Phosphorus (2.5-4.5) mg/dL Magnesium (1.6-2.3) mg/dL Ammonia (<30) umol/L Procalcitonin 72.13 H (0.02-0.09) ng/mL 02/15/19 02/15/19 02/15/19 Range/Units 20:09 20:10 20:10 WBC 12.0 H (3.8-10.6) k/uL RBC 3.40 L (3.80-5.40) m/uL Hgb 9.3 L D (11.4-16.0) gm/dL Hct 30.9 L (34.0-46.0) % MCHC 30.2 L (31.0-37.0) g/dL RDW 15.6 H (11.5-15.5) % Plt Count 140 L (150-450) k/uL Neutrophils # 10.6 H (1.3-7.7) k/uL Lymphocytes # 0.6 L (1.0-4.8) k/uL ABG pH (7.35-7.45) ABG pO2 (83-108) mmHg ABG HCO3 (21-25) mmol/L ABG O2 Saturation (94-97) % Sodium 133 L (137-145) mmol/L Potassium 2.8 L (3.5-5.1) mmol/L Carbon Dioxide 19 L (22-30) mmol/L BUN 36 H (7-17) mg/dL Creatinine 5.79 H (0.52-1.04) mg/dL Glucose 151 H (74-99) mg/dL POC Glucose (mg/dL) 160 H (75-99) mg/dL Hemoglobin A1c (4.0-6.0) % Calcium 6.7 L (8.4-10.2) mg/dL Ionized Calcium Dianelys (4.5-5.3) mg/dL Phosphorus 5.3 H (2.5-4.5) mg/dL Magnesium 1.4 L (1.6-2.3) mg/dL Ammonia (<30) umol/L Procalcitonin (0.02-0.09) ng/mL 02/16/19 02/16/19 02/16/19 Range/Units 01:16 04:15 04:15 WBC 13.3 H (3.8-10.6) k/uL RBC 3.70 L (3.80-5.40) m/uL Hgb 10.4 L (11.4-16.0) gm/dL Hct 33.6 L (34.0-46.0) % MCHC (31.0-37.0) g/dL RDW (11.5-15.5) % Plt Count (150-450) k/uL Neutrophils # 12.0 H (1.3-7.7) k/uL Lymphocytes # 0.6 L (1.0-4.8) k/uL ABG pH (7.35-7.45) ABG pO2 (83-108) mmHg ABG HCO3 (21-25) mmol/L ABG O2 Saturation (94-97) % Sodium 133 L (137-145) mmol/L Potassium 3.4 L (3.5-5.1) mmol/L Carbon Dioxide 17 L (22-30) mmol/L BUN 36 H (7-17) mg/dL Creatinine 5.68 H (0.52-1.04) mg/dL Glucose 124 H (74-99) mg/dL POC Glucose (mg/dL) 109 H (75-99) mg/dL Hemoglobin A1c (4.0-6.0) % Calcium 7.0 L (8.4-10.2) mg/dL Ionized Calcium Dianelys 4.3 L (4.5-5.3) mg/dL Phosphorus 4.8 H (2.5-4.5) mg/dL Magnesium (1.6-2.3) mg/dL Ammonia (<30) umol/L Procalcitonin (0.02-0.09) ng/mL 02/16/19 02/16/19 02/16/19 Range/Units 04:15 04:25 05:55 WBC (3.8-10.6) k/uL RBC (3.80-5.40) m/uL Hgb (11.4-16.0) gm/dL Hct (34.0-46.0) % MCHC (31.0-37.0) g/dL RDW (11.5-15.5) % Plt Count (150-450) k/uL Neutrophils # (1.3-7.7) k/uL Lymphocytes # (1.0-4.8) k/uL ABG pH 7.28 L (7.35-7.45) ABG pO2 140 H (83-108) mmHg ABG HCO3 19 L (21-25) mmol/L ABG O2 Saturation 98.4 H (94-97) % Sodium (137-145) mmol/L Potassium (3.5-5.1) mmol/L Carbon Dioxide (22-30) mmol/L BUN (7-17) mg/dL Creatinine (0.52-1.04) mg/dL Glucose (74-99) mg/dL POC Glucose (mg/dL) 132 H (75-99) mg/dL Hemoglobin A1c (4.0-6.0) % Calcium (8.4-10.2) mg/dL Ionized Calcium Dianelys (4.5-5.3) mg/dL Phosphorus (2.5-4.5) mg/dL Magnesium (1.6-2.3) mg/dL Ammonia 44 H (<30) umol/L Procalcitonin (0.02-0.09) ng/mL 02/16/19 Range/Units 12:01 WBC (3.8-10.6) k/uL RBC (3.80-5.40) m/uL Hgb (11.4-16.0) gm/dL Hct (34.0-46.0) % MCHC (31.0-37.0) g/dL RDW (11.5-15.5) % Plt Count (150-450) k/uL Neutrophils # (1.3-7.7) k/uL Lymphocytes # (1.0-4.8) k/uL ABG pH (7.35-7.45) ABG pO2 (83-108) mmHg ABG HCO3 (21-25) mmol/L ABG O2 Saturation (94-97) % Sodium (137-145) mmol/L Potassium (3.5-5.1) mmol/L Carbon Dioxide (22-30) mmol/L BUN (7-17) mg/dL Creatinine (0.52-1.04) mg/dL Glucose (74-99) mg/dL POC Glucose (mg/dL) 64 L (75-99) mg/dL Hemoglobin A1c (4.0-6.0) % Calcium (8.4-10.2) mg/dL Ionized Calcium Dianelys (4.5-5.3) mg/dL Phosphorus (2.5-4.5) mg/dL Magnesium (1.6-2.3) mg/dL Ammonia (<30) umol/L Procalcitonin (0.02-0.09) ng/mL Microbiology - Last 24 Hours (Table) 02/13/19 00:00 Anaerobic Culture - Preliminary Catheter Site 02/14/19 06:00 Gram Stain - Preliminary Peritoneal Fluid Body Fluid Culture - Preliminary Assessment and Plan Assessment: 1 acute hypoxic respiratory failure, currently intubated on a mechanical ventilator. The patient has abnormal chest x-ray with evidence of moderate- sized right-sided pleural effusion, rule out malignant pleural effusion. Rule out pleural effusion related to peritoneal dialysis and fluid leaking into the pleural space 2 right upper lobe masslike consolidation in the upper lateral chest wall area measuring 6 x 2.5 cm in size is sedated with questionable hilar mass, paratracheal and anterior mediastinal lymphadenopathy. Consider possibility of underlying lung cancer based on these findings. 3 right lower lobe atelectasis/consolidation along with right-sided pleural effusion 4 coffee-ground emesis, consider upper GI bleed, currently inactive in stable and hemoglobin remains stable at 10.4 5 End stage disease on continue hemodialysis, PD 6 COPD 7 diabetes mellitus 8 hypertension 9 hyperlipidemia 10 hypotension, consider hypovolemic hypotension versus sepsis. Patient is currently on pressors and a combination of antibiotics. Plan This patient's condition decompensated. The patient was initially brought into the intensive care unit. Overnight the patient went to hypotension, shock and respiratory failure requiring intubation mechanical ventilation. Currently she is being supported a mechanical ventilator. Necessary vent changes were done. Chest x-ray still abnormal with opacity in the right lower lung area that needs to be further characterized. The initial CAT scan was done without contrast. I'm going to repeat a CAT scan of the chest with contrast to characterize these abnormalities as I'm suspicious that the patient may have an underlying lung mass. The possibility of a pneumonia with parapneumonic effusion cannot be completely excluded. The patient is currently on a combination of IV Rocephin and Flagyl. The patient is receiving IV fluids. The patient is on pressors. The patient was started on tube feeds. Keep the patient sedated with no with Diprivan. Replace electrodes. Nephrology is on the case. Dialysis per nephrology and the patient is receiving peritoneal dialysis. We'll continue to follow. Prognosis poor. Case is discussed with the family and at the bedside. The sedation was done more than 30 minutes and work is still in progress. Time with Patient: Greater than 30
--- NOTE | 2019-02-16 14:39 | CT ---
EXAMINATION TYPE: CT chest w con DATE OF EXAM: 02/16/2019 COMPARISON: 02/13/2019 HISTORY: chest mass CT DLP: 333.5 mGycm Automated exposure control for dose reduction was used. CONTRAST: CT scan of the chest is performed with IV Contrast, patient injected with 86cc mL of Isovue 300. FINDINGS: There are bilateral pleural effusions and larger on the right side. There is some consolidation or at electasis right lower lobe. There is masslike density on the right lower lateral chest wall that yvrose ures 5 x 2.5 cm. There is some atelectasis at the left lung base. Heart is enlarged. There is no monika cardial effusion. There are a few enlarged mediastinal lymph nodes that measure up to 1.7 cm. I see n o filling defects in the pulmonary arteries. Thoracic aorta shows no evidence of aneurysm or dissecti on. There is nasogastric tube. There is some fluid around the liver. There is reflux of contrast into the inferior vena cava. The bony thorax appears intact. There is small kidneys. IMPRESSION: Bilateral pleural effusions with more fluid on the right side. Pleural fluid on the right side uncha nged compared to last exam. Fluid on the left side is new. Mild mediastinal adenopathy. Pulmonary inf iltrates in the right middle lobe and right lower lobe with atelectasis. This is unchanged. Appearanc e is nonspecific. Inflammatory disease is more likely. Tumor such as mesothelioma is possible. Conges tive heart failure is probably present. There is evidence of renal atrophy. Mild ascites. Ascites inc reased compared to last exam. No evidence of pulmonary embolism.
--- NOTE | 2019-02-16 16:07 | P.PN ---
Subjective Progress Note Date: 02/16/19 Principal diagnosis: Coffee-ground emesis, anemia acute blood loss Patient seen lying in bed intubated and sedated. is sitting bedside. No acute events reported. No signs or symptoms of GI bleeding reported. Objective - Vital Signs Vital signs: Vital Signs Temp 98.6 F 02/16/19 12:00 Pulse 77 02/16/19 15:49 Resp 28 H 02/16/19 13:15 BP 78/31 02/15/19 16:30 Pulse Ox 99 02/16/19 13:15 Intake & Output 02/15/19 02/16/19 02/16/19 18:59 06:59 18:59 Intake Total 950 1387.238 3270.402 Output Total 0 Balance 950 4941.435 1478.402 Weight 60.1 kg 60.1 kg Intake: IV 100 1721 951 Calcium Gluconate 1 gm In 100 Sodium Chloride 0.9% 100 ml @ 100 mls/hr IVPB ONCE ONE Rx#:[id number] Magnesium Sulfate-D5w Pmx 200 1 gm In Dextrose/Water 1 100ml.bag @ 100 mls/hr IVPB Q1H DANISHA Rx#: [id number] Potassium Chloride 20 meq 300 100 In Water For Injection 1 100ml.bag @ 50 mls/hr IVPB Q2H DANISHA Rx#: [id number] Sodium Chloride 0.9% 1, 100 1100 680 000 ml @ 100 mls/hr IV . Q10H DANISHA Rx#:[id number] art line pressure bag 21 21 cefTRIAXone 1 gm In 50 Sodium Chloride 0.9% 50 ml @ 100 mls/hr IVPB Q24HR DANISHA Rx#:[id number] metroNIDAZOLE-NS PMX 500 100 mg In Saline 1 100ml.bag @ 100 mls/hr IVPB Q8HR DANISHA Rx#:[id number] Intake, IV Titration 850 194.532 543.402 Amount Albumin Human 5% 250 ml 250 In Empty Bag 1 bag @ 250 mls/hr IVPB ONCE ONE Rx#: [id number] Norepinephrine 4 mg In 94.532 394.984 Sodium Chloride 0.9% 250 ml @ 0.05 MCG/KG/MIN 10. 369 mls/hr IV .Q24H DANISHA Rx#:[id number] Propofol 1,000 mg In 100.000 148.418 Empty Bag 1 bag @ Titrate IV .Q0M DANISHA Rx#: [id number] Sodium Chloride 0.9% 1, 600 000 ml @ 100 mls/hr IV . Q10H DANISHA Rx#:[id number] Output: Urine 0 Other: Voiding Method CAPD CAPD CAPD # Voids 0 ABP, PAP, CO, CI - Last Documented Arterial Blood Pressure 119/31 - Exam On physical examination, patient appears comfortable in no apparent distress. HEAD: Normocephalic, atraumatic. EYES: No scleral icterus. No conjunctival injection. MOUTH: No lesions, tongue midline, ET tube in place. NECK: Trachea midline, no gross abnormalities. CHEST: Coarse respiratory noises in all lung potts consistent with intubation and mechanical ventilation. HEART: Regular rate and rhythm. ABDOMEN: Soft, obese. Bowel sounds are positive. No organomegaly. No guarding or rigidity. EXTREMITIES: No pedal edema. SKIN: No rashes, no jaundice. NEUROLOGIC: Sedated. - Labs CBC & Chem 7: 02/16/19 04:15 02/16/19 10:18 Labs: Abnormal Lab Results - Last 24 Hours (Table) 02/15/19 02/15/19 02/15/19 Range/Units 15:00 18:12 20:09 WBC (3.8-10.6) k/uL RBC (3.80-5.40) m/uL Hgb (11.4-16.0) gm/dL Hct (34.0-46.0) % MCHC (31.0-37.0) g/dL RDW (11.5-15.5) % Plt Count (150-450) k/uL Neutrophils # (1.3-7.7) k/uL Lymphocytes # (1.0-4.8) k/uL ABG pH 7.28 L (7.35-7.45) ABG pO2 >400 H (83-108) mmHg ABG HCO3 20 L (21-25) mmol/L ABG O2 Saturation 99.9 H (94-97) % Sodium (137-145) mmol/L Potassium (3.5-5.1) mmol/L Carbon Dioxide (22-30) mmol/L BUN (7-17) mg/dL Creatinine (0.52-1.04) mg/dL Glucose (74-99) mg/dL POC Glucose (mg/dL) 160 H (75-99) mg/dL Calcium (8.4-10.2) mg/dL Ionized Calcium Dianelys (4.5-5.3) mg/dL Phosphorus (2.5-4.5) mg/dL Magnesium (1.6-2.3) mg/dL Ammonia (<30) umol/L Procalcitonin 72.13 H (0.02-0.09) ng/mL 02/15/19 02/15/19 02/16/19 Range/Units 20:10 20:10 01:16 WBC 12.0 H (3.8-10.6) k/uL RBC 3.40 L (3.80-5.40) m/uL Hgb 9.3 L D (11.4-16.0) gm/dL Hct 30.9 L (34.0-46.0) % MCHC 30.2 L (31.0-37.0) g/dL RDW 15.6 H (11.5-15.5) % Plt Count 140 L (150-450) k/uL Neutrophils # 10.6 H (1.3-7.7) k/uL Lymphocytes # 0.6 L (1.0-4.8) k/uL ABG pH (7.35-7.45) ABG pO2 (83-108) mmHg ABG HCO3 (21-25) mmol/L ABG O2 Saturation (94-97) % Sodium 133 L (137-145) mmol/L Potassium 2.8 L (3.5-5.1) mmol/L Carbon Dioxide 19 L (22-30) mmol/L BUN 36 H (7-17) mg/dL Creatinine 5.79 H (0.52-1.04) mg/dL Glucose 151 H (74-99) mg/dL POC Glucose (mg/dL) 109 H (75-99) mg/dL Calcium 6.7 L (8.4-10.2) mg/dL Ionized Calcium Dianelys (4.5-5.3) mg/dL Phosphorus 5.3 H (2.5-4.5) mg/dL Magnesium 1.4 L (1.6-2.3) mg/dL Ammonia (<30) umol/L Procalcitonin (0.02-0.09) ng/mL 02/16/19 02/16/19 02/16/19 Range/Units 04:15 04:15 04:15 WBC 13.3 H (3.8-10.6) k/uL RBC 3.70 L (3.80-5.40) m/uL Hgb 10.4 L (11.4-16.0) gm/dL Hct 33.6 L (34.0-46.0) % MCHC (31.0-37.0) g/dL RDW (11.5-15.5) % Plt Count (150-450) k/uL Neutrophils # 12.0 H (1.3-7.7) k/uL Lymphocytes # 0.6 L (1.0-4.8) k/uL ABG pH 7.28 L (7.35-7.45) ABG pO2 140 H (83-108) mmHg ABG HCO3 19 L (21-25) mmol/L ABG O2 Saturation 98.4 H (94-97) % Sodium 133 L (137-145) mmol/L Potassium 3.4 L (3.5-5.1) mmol/L Carbon Dioxide 17 L (22-30) mmol/L BUN 36 H (7-17) mg/dL Creatinine 5.68 H (0.52-1.04) mg/dL Glucose 124 H (74-99) mg/dL POC Glucose (mg/dL) (75-99) mg/dL Calcium 7.0 L (8.4-10.2) mg/dL Ionized Calcium Dianelys 4.3 L (4.5-5.3) mg/dL Phosphorus 4.8 H (2.5-4.5) mg/dL Magnesium (1.6-2.3) mg/dL Ammonia (<30) umol/L Procalcitonin (0.02-0.09) ng/mL 02/16/19 02/16/19 02/16/19 Range/Units 04:25 05:55 12:01 WBC (3.8-10.6) k/uL RBC (3.80-5.40) m/uL Hgb (11.4-16.0) gm/dL Hct (34.0-46.0) % MCHC (31.0-37.0) g/dL RDW (11.5-15.5) % Plt Count (150-450) k/uL Neutrophils # (1.3-7.7) k/uL Lymphocytes # (1.0-4.8) k/uL ABG pH (7.35-7.45) ABG pO2 (83-108) mmHg ABG HCO3 (21-25) mmol/L ABG O2 Saturation (94-97) % Sodium (137-145) mmol/L Potassium (3.5-5.1) mmol/L Carbon Dioxide (22-30) mmol/L BUN (7-17) mg/dL Creatinine (0.52-1.04) mg/dL Glucose (74-99) mg/dL POC Glucose (mg/dL) 132 H 64 L (75-99) mg/dL Calcium (8.4-10.2) mg/dL Ionized Calcium Dianelsy (4.5-5.3) mg/dL Phosphorus (2.5-4.5) mg/dL Magnesium (1.6-2.3) mg/dL Ammonia 44 H (<30) umol/L Procalcitonin (0.02-0.09) ng/mL Microbiology - Last 24 Hours (Table) 02/13/19 00:00 Anaerobic Culture - Preliminary Catheter Site 02/14/19 06:00 Gram Stain - Preliminary Peritoneal Fluid Body Fluid Culture - Preliminary Assessment and Plan (1) Coffee ground emesis Narrative/Plan: 63-year-old female with multiple medical comorbidities who presented to the hospital with complaints of coffee-ground emesis. The patient was taken for upper endoscopy with findings of erosive esophagitis, 3 nonbleeding antral ulcers and duodenitis/ulceration of the duodenum. No active bleeding was seen on EGD. No further signs or symptoms of GI bleeding. The patient was subsequently brought to the ICU and intubated. Hemoglobin has remained stable. Current Visit: Yes Status: Acute Code(s): K92.0 - HEMATEMESIS SNOMED Code( s): 55825328 (2) Acute blood loss anemia Current Visit: Yes Status: Acute Code(s): D62 - ACUTE POSTHEMORRHAGIC ANEMIA SNOMED Code(s): 309678591 Plan: Supportive care Appreciate ICU management, intensive this consultation Continue to monitor hemoglobin and transfuse as needed Continue to monitor for signs and symptoms of GI bleeding Continue Protonix IV twice daily, okay to convert to oral after extubation Okay for diet when patient is more alert and extubated No further endoscopy is planned at this time Thank you for allowing us to participate in the care of the patient, the gastroenterology service will continue to follow
[2019-02-16 18:23] LABS: Glucose,Whole Blood 125 mg/dL (75-99)
[2019-02-16] MEDS ORDERED: POTASSIUM BICARBONATE/CIT AC 20 MEQ TABLET.EFF NG-TUBE SCH (19:00)
--- NOTE | 2019-02-16 19:56 | PN ---
PROGRESS NOTE The patient is seen for followup for end-stage renal disease. Yesterday, she was intubated. The patient had an episode of bradycardia. She continued to be hypotensive. The CT scan of the brain showed bilateral mastoiditis and left otitis media. The peritoneal dialysis has been on hold since yesterday. We have resumed her dialysis. The patient had a chest CT done with IV contrast earlier this afternoon, which shows right pleural effusion and right consolidation. There is also some mild left pleural effusion noted. PHYSICAL EXAMINATION: Currently patient is on the vent and she is sedated. Blood pressure was 113/33. Levophed is at 20 mcgs. The patient is afebrile. Examination of the heart: S1, S2. Examination of the lungs: Bilateral breath sounds are heard. Abdomen is soft, nontender. Examination of the lower extremities shows chronic skin changes. No significant edema is noted. SCHOLASTIC APTITUDE TEST GRADER exam cannot be performed. LABS: Shows sodium of 133, potassium 3.4, CO2 17, BUN 36, serum creatinine 5.68, hemoglobin 10.4 g/dL. ASSESSMENT: 1. End-stage renal disease, on peritoneal dialysis. I will resume her PD. There was some fibrin noted and there was some difficulty instilling the fluid. We will use heparin in the bag. There is no evidence of peritonitis. 2. Hypokalemia, status post replacement. 3. Acute hypoxic respiratory failure secondary to pneumonia. 4. Hypotension, most likely from sepsis from right lung pneumonia, maintained on antibiotics. 5. Otitis media noted on CT scan. Currently maintained on antibiotics. 6. Mild exit site infection noted on the PD catheter. Will continue with the current antibiotics. PLAN: Resume PD with 1.5% solution so that we do not pull off much fluid. Continue with the IV fluids for now and try to wean off pressors. Continue antibiotics. MMODL / IJN: [id number] /
[2019-02-16] MEDS: ATORVASTATIN 20 MG TAB PO SCH (20:55)
[2019-02-16 21:08] LABS: Albumin 1.6 g/dL (3.5-5.0); Potassium 3.9 mmol/L (3.5-5.1)
[2019-02-16] MEDS: NOREPINEPHRINE 32 MG in SODIUM CHLORIDE 0.9% 218 ML IV SCH (21:47)
[2019-02-16] MEDS ORDERED: DIALYSIS (PERIT 1.5%) 2,000 ML 30 G/2,000 ML BAG INTRAPERIT ONE (22:00)
[2019-02-16] MEDS ORDERED: DIALYSIS DEX INTRAPERIT ONE (22:00)
[2019-02-16] MEDS ORDERED: HEPARIN SOD INTRAPERIT ONE (22:00)
[2019-02-17 00:02] LABS: Glucose,Whole Blood 200 mg/dL (75-99)
[2019-02-17] MEDS: metroNIDAZOLE-NS PMX 500 MG in SALINE 1 100ML.BAG IVPB SCH ×3 (00:32→15:41)
[2019-02-17] MEDS: SODIUM CHLORIDE 0.9% 1,000 ML IV SCH (01:12)
[2019-02-17] MEDS: IPRATROPIUM-ALBUTEROL 3 ML NEB INHALATION SCH ×6 (03:04→23:05)
[2019-02-17 04:20] LABS: ABG Base Excess -15.1 mmol/L; ABG HCO3 13 mmol/L (21-25); ABG Oxygen Saturation 95.2 % (94-97); ABG PCO2 37 mmHg (35-45); ABG PO2 87 mmHg (83-108); ABG TCO2 15 mmol/L (19-24)
[2019-02-17 04:23] LABS: Anisocytosis Slight; HCT 34.6 % (34.0-46.0); HGB 11.8 gm/dL (11.4-16.0); Hypochromasia Marked; MCH 30.8 pg (25.0-35.0); MCHC 34.1 g/dL (31.0-37.0); MCV 90.5 fL (80.0-100.0); Mean Platelet Volume 7.7; Platelet Count 127 k/uL (150-450); RBC 3.82 m/uL (3.80-5.40); RDW 16.2 % (11.5-15.5); WBC 33.3 k/uL (3.8-10.6)
[2019-02-17] MEDS: DIALYSIS (PERIT 1.5%) 2,000 ML 30 G/2,000 ML BAG INTRAPERIT SCH ×4 (04:25→22:29)
[2019-02-17 04:31] LABS: Magnesium 1.6 mg/dL (1.6-2.3); Phosphorus 5.2 mg/dL (2.5-4.5); Potassium 3.8 mmol/L (3.5-5.1)
[2019-02-17 04:38] LABS: Calcium 6.4 mg/dL (8.4-10.2)
[2019-02-17 04:53] LABS: Band Neutrophils % 19 %; Lymphocytes # (M) 0.67 k/uL (1.0-4.8); Myelocytes % 3 %; Neutrophils % (M) 67 %; Nucleated Red Blood Cells 0 /100 WBC (0-0); Total Cells Counted 200
[2019-02-17] MEDS: PROPOFOL 1,000 MG in EMPTY BAG 1 BAG IV SCH ×3 (05:40→21:02)
[2019-02-17 06:03] LABS: Glucose,Whole Blood 189 mg/dL (75-99)
--- NOTE | 2019-02-17 06:14 | XR ---
EXAMINATION TYPE: XR chest 1V portable DATE OF EXAM: 02/17/2019 HISTORY: Tube placement. REFERENCE: Previous study dated 02/16/2019. FINDINGS: The patient is ET tube and NG tube remain in place, unchanged in appearance. There is bibas ilar airspace disease, worse on the right than the left. There are bilateral effusions, greater on th e right than the left. There is mild vascular congestion and subtle interstitial change. IMPRESSION: OVERALL WORSENING IN THE APPEARANCE OF THE CHEST WITH WORSENING BIBASILAR AIRSPACE DISEASE, BILATERAL EFFUSIONS AND CHANGES CONSISTENT WITH PULMONARY EDEMA.
[2019-02-17] MEDS: INSULIN ASPART (NovoLOG) 100 UNIT/ML VIAL SQ SCH ×3 (06:37→18:03)
[2019-02-17] MEDS: MIDODRINE 5 MG TAB PO SCH ×3 (06:37→18:03)
[2019-02-17] MEDS: SUCRALFATE 1 GM TAB PO SCH ×2 (06:39→18:03)
[2019-02-17] MEDS ORDERED: MAGNESIUM SULFATE-D5W PMX 1 GM in DEXTROSE/WATER 1 100ML.BAG IVPB ONE (07:00)
[2019-02-17] MEDS: DEXTROSE 5% IN WATER 1,000 ML with SODIUM BICARB (1 MEQ/ML) 150 ML IV SCH ×2 (07:15→18:04)
[2019-02-17] MEDS: POTASSIUM CHLORIDE 10 MEQ in WATER FOR INJECTION 1 100ML.BAG IVPB SCH ×2 (07:27→11:05)
[2019-02-17] MEDS ORDERED: SODIUM CHLORIDE 0.9% 1,000 ML IV ONE (07:37)
[2019-02-17] MEDS ORDERED: VANCOMYCIN IV PER PHARMACY 1 EACH MISC MISCELLANE PRN (07:48)
[2019-02-17] MEDS ORDERED: CALCIUM GLUCONATE 1 GM in SODIUM CHLORIDE 0.9% 100 ML IVPB ONE (08:00)
[2019-02-17] MEDS ORDERED: VANCOMYCIN 1,250 MG in SODIUM CHLORIDE 0.9% 250 ML IVPB ONE (08:00)
[2019-02-17 09:37] LABS: Albumin 1.6 g/dL (3.5-5.0); Total Protein 4.3 g/dL (6.3-8.2)
[2019-02-17] MEDS: CALCIUM CARBONATE LIQUID 500 MG/5 ML CUP PO SCH ×2 (09:38→18:54)
[2019-02-17] MEDS: NICOTINE 21MG/24HR PATCH TRANSDERM SCH (10:45)
[2019-02-17] MEDS: PANTOPRAZOLE 40 MG/10 ML VIAL IVP SCH ×2 (11:05→20:54)
[2019-02-17] MEDS: CHLORHEXIDINE GLUCONATE 15 ML CUP MUCOUS MEM SCH ×2 (11:05→20:55)
[2019-02-17] MEDS: CEFEPIME 1 GM in SODIUM CHLORIDE 0.9% 50 ML IVPB SCH (11:05)
--- NOTE | 2019-02-17 11:30 | PN ---
PROGRESS NOTE Patient is seen for followup for end-stage renal disease. The patient remains on the vent. Levophed is up to about 27 mcg. The patient was more acidotic and has been started on IV bicarb. She has been tolerating her dialysis. She has had about 900 mL of ultrafiltration in total. The fluid has been clear and we added heparin as there was some fibrin noted. PHYSICAL EXAMINATION: Patient is currently sedated. She is on the vent. Blood pressure 133/33, heart rate 85 per minute, patient is afebrile. Examination of the heart S1, S2. Examination of the lungs, decreased breath sounds at bases. Bilateral breath sounds are heard. Abdomen is soft. Examination lower extremities shows no trace edema. TIMBER FRAMER exam cannot be performed. LAB: Sodium 132, potassium 3.8, BUN 30, serum creatinine 4.97, calcium 6.4, ionized calcium 4.2, phosphorus 5.2, hemoglobin 11.8, white cell count 33,000. ASSESSMENT: 1. End-stage renal disease, on peritoneal dialysis. Continue current PD exchanges. 2. Sepsis with septic shock. Antibiotic coverage will be broadened. Discussed with calender machine operator. 3. Anion gap metabolic acidosis secondary to sepsis and lactic acidosis, maintained on IV bicarb. 4. Vent dependent respiratory failure, acute hypoxic, FiO2 is at 40%. 5. Right lung pneumonia and pleural effusion. PLAN: IV fluid bolus of saline of 1 L. Continue current PD exchanges. Continue bicarb drip. Maintain antibiotics. Consider thoracentesis versus bronchoscopy. MMODL / IJN: [id number] /
--- NOTE | 2019-02-17 11:39 | P.PN ---
Subjective Progress Note Date: 02/17/19 This is a 63-year-old female patient with known history of COPD, diabetes mellitus, hypertension hyperlipidemia and she has also dialysis-dependent renal failure and the patient is undergoing peritoneal dialysis. The patient came into the hospital feeling weak, dizzy and lightheaded. She stated that she was hardly able to walk. She hasn't been eating or drinking for several days. She stated that she had only 2 bottles of water over the past few days. No nausea. No vomiting. No diarrhea. No altered mentation. She had been undergoing Peritoneal dialysis. No fever. No chills. The patient had a chest x-ray in the emergency department that showed right basilar opacity/mass/atelectasis with effusion. This was followed up by CAT scan of the chest that showed a moderate- sized right-sided pleural effusion in addition to masslike consolidation in the right lower lobe and the right upper lobe. There was also enlarged right paratracheal lymph nodes measuring 18 x 12 mm in size and anterior mediastinal lymph node measuring 1.5 cm. There is a questionable right hilar mass in addition. This CAT scan was done without contrast. Another masslike consolidation is present in the right upper lobe lateral chest area measuring 6 x 2.5 cm in size. No focal bony destruction. The patient during this current hospital stay. Large-volume coffee-ground emesis 5. For that reason the patient was seen by gastroenterology and the patient is going to undergo an EGD today. Upon further questioning, the patient is a chronic smoker. She has recently seen Dr. Williamson regarding possibility of lung cancer. 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 On 02/15/2019 patient seen in follow-up on medical surgical floor. The rapid response team was called in regards to patient's hypotension today. The blood pressure dropped down as low as 57/35, and has been noted to be more lethargic. Afebrile, she is on room air, maintaining good oxygenation, patient had her per itoneal dialysis exchange this morning, and she had 200 mL of fluid removed with peritoneal dialysis this morning. She was started on oral Midrin, she is receiving IV normal saline at a rate of 100 ML per hour, and we'll give the patient 250 mL of 5% albumin. She has had no further vomiting or diarrhea, no hematemesis, no melena. Today's hemoglobin is 11.3, with blood cell count is 7.5, sodium is 135, potassium 3.2, CO2 is 19, BUN is 39, creatinine is 6.15, peritoneal fluid cultures have shown no growth so far. Patient's lung sounds are diminished, with the bibasilar crackles. She is arousable to verbal stimuli, but drowsy. Denies any chest pain. On 02/16/2019 I'm seeing this patient for a follow-up. The patient got transferred to the intensive care unit as the patient was having episodes of hypotension. The patient was started on norepinephrine infusion. Repeat blood work showed electrodes imbalance with hypokalemia and potassium level was being replaced. Note that the patient acutely became bradycardic and hypotensive and unresponsive and she went to respiratory failure. At that point, the patient had to be intubated and placed on a mechanical ventilator. I was informed of these changes that occurred yesterday. Overnight, the patient was kept on a mechanical ventilator and this morning the patient remains at the rate of 16 with a tidal volume of 400 and FiO2 of 40% and a PEEP of 5. The chest x-ray from today shows that the ET tube is in a good location. There is right basilar airspace disease and right-sided pleural effusion which has been noted on a previous CAT scan of the chest. Based on the diminished level of consciousness, the patient is a CAT scan of the brain and the findings are essentially negative for any acute abnormalities. There was no evidence of any POTABLE WATER TREATMENT OPERATOR lesions bleed or stroke. Overnight, the patient was kept on sedation and currently performs running at 50 g per KG per minute. She is hypotensive. Pressors are being titrated to maintain a mean artery pressure above 65 and the patient's levo fed is running currently at 0.2 g per KG per minute. No peritoneal dialysis performed today and then abdominal cavity is free of any PD fluids. The patient is afebrile. The patient's white cell count is at 13.3. The morning blood gas showed a pH of 7.28 with a pCO2 of 40. PO2 was 140. The patient is resting comfortably in bed and sedated for now. Family is at the bedside. Upon further questioning, the who happened to be my patient to move the patient was having symptoms of respiratory tract infection/pneumonia for almost 2-3 weeks and the patient was having increased cough and congestion. She did not receive any antibiotic therapy prior to her coming to the hospital. Her ascitic fluid cultures were negative. Blood cultures of been negative thus far. Serum bicarb level is at 17. Potassium level is minimal patient is up to 3.8. Glucose this morning is at 132. Serum ammonia level is at 44. On 02/17/2019 the patient is being seen in the follow-up. The patient is clearly acting septic with pneumonia. Note that she is still intubated on a mechanical ventilator. A CAT scan was a period yesterday and that is no evidence of any lung masses. The patient has bilateral pleural effusion more so on the right side. The pleural fluid is unchanged based on the previous CAT scan of the chest. There is mild Mr. lymphadenopathy. Pulmonary infiltrates is in the right middle lobe and the right lower lobe are present along with atelectasis and these are also unchanged. The patient has also mild ascites. The patient remains intubated on a mechanical ventilator assist control mode with an FiO2 of 40% with a febrile 5 and tidal volume of 400 and asked the rate of 16. The pH is 7.17 today and a pCO2 of 37 and pO2 is 87 and is essentially consistent with severe metabolic acidosis. Lactic acid level this morning is at 3.7. White cell count jumped up to 33.3. Pro-calcitonin level was also sign ificantly elevated. Based on all this, I broaden antibiotic coverage to include a combination of cefepime, Flagyl and vancomycin. The patient is currently not receiving any peritoneal dialysis. The patient is hypotensive and the patient is off pressors and the present dose being adjusted to maintain a mean arterial pressure above 65. Currently she is on 0.2 g per KG per minute. The patient w as also started on a bicarb drip knowing that the morning blood gases shows a component of severe non-anion gap metabolic acidosis. Furthermore, I SID to do a bronchoscopy and obtain a bronchioloalveolar lavage of the right lower lobe due to the high suspicion for a right lower lobe pneumonia. The patient's cultures of been all negative thus far. She is sedated and calm and comfortable on propofol. Objective - Vital Signs Vital signs: Vital Signs Temp 98.5 F 02/17/19 08:00 Pulse 90 02/17/19 11:12 Resp 23 02/17/19 08:00 BP 109/26 02/16/19 17:25 Pulse Ox 99 02/17/19 08:00 Intake & Output 02/16/19 02/17/19 02/17/19 18:59 06:59 18:59 Intake Total 2360.886 2077.477 3589 Output Total 0 Balance 2360.886 5429.696 1963 Weight 60.1 kg Intake: IV 1729 1233 1103 Dextrose 5% in Water 1, 100 000 ml @ 100 mls/hr IV . [id number] DANISHA with Sodium Bicarb (1 Meq/ml) 150 ml Rx#:[id number] Potassium Chloride 20 meq 100 In Water For Injection 1 100ml.bag @ 50 mls/hr IVPB Q2H DANISHA Rx#: [id number] Sodium Chloride 0.9% 1, 1240 1100 000 ml @ 100 mls/hr IV . Q10H DANISHA Rx#:[id number] Sodium Chloride 0.9% 1, 1000 000 ml @ 999 mls/hr IV . Q1H1M ONE Rx#:[id number] art line pressure bag 39 33 3 cefTRIAXone 1 gm In 150 Sodium Chloride 0.9% 50 ml @ 100 mls/hr IVPB Q24HR DANISHA Rx#:[id number] metroNIDAZOLE-NS PMX 500 200 100 mg In Saline 1 100ml.bag @ 100 mls/hr IVPB Q8HR DANISHA Rx#:[id number] Intake, IV Titration 561.886 407.662 Amount Norepinephrine 32 mg In 60.524 Sodium Chloride 0.9% 218 ml @ 0.05 MCG/KG/MIN 1. 409 mls/hr IV .Q24H DANISHA Rx#:[id number] Norepinephrine 4 mg In 413.468 147.138 Sodium Chloride 0.9% 250 ml @ 0.05 MCG/KG/MIN 10. 369 mls/hr IV .Q24H DANISHA Rx#:[id number] Propofol 1,000 mg In 148.418 200 Empty Bag 1 bag @ Titrate IV .Q0M DANISHA Rx#: [id number] Tube Feeding 10 138 17 Other 60 90 30 Output: Urine 0 Other: Voiding Method CAPD CAPD CAPD # Voids 1 0 ABP, PAP, CO, CI - Last Documented Arterial Blood Pressure 159/40 - Exam Gen. appearance, comfortable not in acute distress she is well sedated with Diprivan intubated on a mechanical ventilator. Head exam was generally normal. There was no scleral icterus or corneal arcus. Mucous membranes were moist. Neck was supple and without jugular venous distension, thyromegaly, or carotid bruits. Carotids were easily palpable bilaterally. There was no adenopathy. Lungs sounds are diminished on the right compared to the left. The patient has no wheezes or rhonchi. Cardiac exam revealed the PMI to be normally situated and sized. The rhythm was regular and no extrasystoles were noted during several minutes of auscultation. The first and second heart sounds were normal and physiologic splitting of the second heart sound was noted. There were no murmurs, rubs, clicks, or gallops. Abdominal exam revealed normal bowel sounds. The abdomen was soft, non-tender, and without masses, organomegaly, or appreciable enlargement of the abdominal aorta. The patient has a PD catheter in place and there is no direct tenderness or rebound tenderness or guarding. Active site of the catheter is dry clean and intact. Extremities revealed diminished pulses bilaterally and the patient has a femoral art line and triple lumen catheter in place. Trace edema and there is n o cyanosis or clubbing. The patient has a functioning AV fistula in the left upper extremity. There is worsening edema in all 4 extremities neurologically the patient is sedated. The patient has discrepancy in the size of pupils bilaterally and this is a chronic finding. No nystagmus. No clonus. She withdraws to painful sublation all 4 extremities to no neck stiffness. Examination of the skin revealed no evidence of significant rashes, suspicious appearing nevi or other concerning lesions. - Labs CBC & Chem 7: 02/17/19 04:07 02/17/19 04:07 Labs: Abnormal Lab Results - Last 24 Hours (Table) 02/16/19 02/16/19 02/16/19 Range/Units 12:01 18:11 20:45 WBC (3.8-10.6) k/uL RDW (11.5-15.5) % Plt Count (150-450) k/uL Neutrophils # (Manual) (1.3-7.7) k/uL Lymphocytes # (Manual) (1.0-4.8) k/uL Monocytes # (Manual) (0-1.0) k/uL Myelocytes # (Manual) (0) k/uL ABG pH (7.35-7.45) ABG HCO3 (21-25) mmol/L ABG Total CO2 (19-24) mmol/L ABG Lactic Acid (0.5-1.6) mmol/L Sodium (137-145) mmol/L Carbon Dioxide (22-30) mmol/L BUN (7-17) mg/dL Creatinine (0.52-1.04) mg/dL Glucose (74-99) mg/dL POC Glucose (mg/dL) 64 L 125 H (75-99) mg/dL Calcium (8.4-10.2) mg/dL Ionized Calcium Dianelys (4.5-5.3) mg/dL Phosphorus (2.5-4.5) mg/dL Alkaline Phosphatase (38-126) U/L Ammonia (<30) umol/L Total Protein (6.3-8.2) g/dL Albumin 1.6 L (3.5-5.0) g/dL 02/16/19 02/16/19 02/17/19 Range/Units 20:45 23:51 04:00 WBC (3.8-10.6) k/uL RDW (11.5-15.5) % Plt Count (150-450) k/uL Neutrophils # (Manual) (1.3-7.7) k/uL Lymphocytes # (Manual) (1.0-4.8) k/uL Monocytes # (Manual) (0-1.0) k/uL Myelocytes # (Manual) (0) k/uL ABG pH (7.35-7.45) ABG HCO3 (21-25) mmol/L ABG Total CO2 (19-24) mmol/L ABG Lactic Acid 2.0 H (0.5-1.6) mmol/L Sodium (137-145) mmol/L Carbon Dioxide (22-30) mmol/L BUN (7-17) mg/dL Creatinine (0.52-1.04) mg/dL Glucose (74-99) mg/dL POC Glucose (mg/dL) 200 H (75-99) mg/dL Calcium (8.4-10.2) mg/dL Ionized Calcium Dianelys (4.5-5.3) mg/dL Phosphorus (2.5-4.5) mg/dL Alkaline Phosphatase (38-126) U/L Ammonia 76 H (<30) umol/L Total Protein (6.3-8.2) g/dL Albumin (3.5-5.0) g/dL 02/17/19 02/17/19 02/17/19 Range/Units 04:07 04:07 04:07 WBC 33.3 H (3.8-10.6) k/uL RDW 16.2 H (11.5-15.5) % Plt Count 127 L (150-450) k/uL Neutrophils # (Manual) 28.60 H (1.3-7.7) k/uL Lymphocytes # (Manual) 0.67 L (1.0-4.8) k/uL Monocytes # (Manual) 3.00 H (0-1.0) k/uL Myelocytes # (Manual) 1.00 H (0) k/uL ABG pH (7.35-7.45) ABG HCO3 (21-25) mmol/L ABG Total CO2 (19-24) mmol/L ABG Lactic Acid 3.7 H* (0.5-1.6) mmol/L Sodium 132 L (137-145) mmol/L Carbon Dioxide 13 L (22-30) mmol/L BUN 30 H (7-17) mg/dL Creatinine 4.97 H (0.52-1.04) mg/dL Glucose 158 H (74-99) mg/dL POC Glucose (mg/dL) (75-99) mg/dL Calcium 6.4 L* (8.4-10.2) mg/dL Ionized Calcium Dianelys (4.5-5.3) mg/dL Phosphorus 5.2 H (2.5-4.5) mg/dL Alkaline Phosphatase 295 H (38-126) U/L Ammonia (<30) umol/L Total Protein 4.3 L (6.3-8.2) g/dL Albumin 1.6 L (3.5-5.0) g/dL 02/17/19 02/17/19 02/17/19 Range/Units 04:20 04:45 05:52 WBC (3.8-10.6) k/uL RDW (11.5-15.5) % Plt Count (150-450) k/uL Neutrophils # (Manual) (1.3-7.7) k/uL Lymphocytes # (Manual) (1.0-4.8) k/uL Monocytes # (Manual) (0-1.0) k/uL Myelocytes # (Manual) (0) k/uL ABG pH 7.17 L* (7.35-7.45) ABG HCO3 13 L (21-25) mmol/L ABG Total CO2 15 L (19-24) mmol/L ABG Lactic Acid (0.5-1.6) mmol/L Sodium (137-145) mmol/L Carbon Dioxide (22-30) mmol/L BUN (7-17) mg/dL Creatinine (0.52-1.04) mg/dL Glucose (74-99) mg/dL POC Glucose (mg/dL) 189 H (75-99) mg/dL Calcium (8.4-10.2) mg/dL Ionized Calcium Dianelys 4.2 L (4.5-5.3) mg/dL Phosphorus (2.5-4.5) mg/dL Alkaline Phosphatase (38-126) U/L Ammonia (<30) umol/L Total Protein (6.3-8.2) g/dL Albumin (3.5-5.0) g/dL Microbiology - Last 24 Hours (Table) 02/14/19 06:00 Gram Stain - Preliminary Peritoneal Fluid Body Fluid Culture - Preliminary 02/17/19 00:50 Genital Culture - Preliminary Vaginal 02/16/19 09:50 Gram Stain - Preliminary Sputum Sputum Culture - Preliminary 02/15/19 15:00 Blood Culture - Preliminary Blood No Growth after 24 hours 02/13/19 00:00 Anaerobic Culture - Preliminary Catheter Site Assessment and Plan Assessment: 1 acute hypoxic respiratory failure, currently intubated on a mechanical ventilator. 2 right lung pneumonia. The patient is acting septic with a right lung pneumonia essentially involving the right lower lobe area that is the right middle lobe and secondary pleural effusion. The patient has leukocytosis, mild lactic acidosis, hypotension, elevated pro calcitonin level and she is hypotensive and septic. Based on all this, the patient is currently being resuscitated IV fluids and pressors and antibiotics which were broadened this morning. No indication of any lung mass based on the CT scan of the chest that was done with contrast. 3 sepsis is secondary to hypotension, related to underlying pneumonia. 4 coffee-ground emesis, consider upper GI bleed, currently inactive in stable and hemoglobin remains stable at 11.8. The patient was started on tube feeds. 5 End stage disease on continue hemodialysis, PD 6 COPD 7 diabetes mellitus 8 hypertension 9 hyperlipidemia, history of 10 hypotension, secondary to sepsis. Patient is currently on pressors and a combination of antibiotics. 11 mild lactic acidosis 12 severe non-anion gap metabolic acidosis 13 leukocytosis Plan Continue ventilator support. Start the patient on bicarb drip at the rate of 100 mL an hour and the patient will be given D5 with 3 ampules of sodium bicarbonate. Broaden antibiotic coverage to use a combination of cefepime, Flagyl and vancomycin. We'll proceed with the bronchioloalveolar lavage of the right lower lobe for microbial cultures. Continue pressors. Continue vent support. Keep the patient sedated with propofol. No dialysis will be done for today. Case was discussed with nephrology. Continue enteral feeding for nutritional support. We'll continue to follow and the patient's condition is quite critical base above-mentioned comorbidities. We'll continue to follow. There is a critically care evaluation that was done in 35 minutes splitting time to do any procedures and treatment is still in progress. Time with Patient: Greater than 30
--- NOTE | 2019-02-17 11:42 | P.PCN ---
Date of Procedure: 02/17/19 Preoperative Diagnosis: Right lung pneumonia with septic shock and ventilator dependent respiratory failure Postoperative Diagnosis: Right lung pneumonia with secondary septic shock and respiratory failure Procedure(s) Performed: Flexible bronchoscopy, bronchioloalveolar lavage of the right middle lobe and the right lower lobe Anesthesia: ASHIA Surgeon: Rick Gardiner Pathology: other Condition: stable Disposition: ICU Indications for Procedure: Pneumonia and the story failure Operative Findings: This procedure was done in intensive care unit. The patient was already sedated with propofol. The patient was intubated on a mechanical ventilator. The patient was placed on 100% FiO2. The patient was was attached and orotracheal tube and allowing that the flexible bronchoscope was inserted to the orotracheal tube and was advanced into the lower trachea. The tip of the orotracheal tube was seen around 1 cm above the candis. The distal trachea was within normal limits. At this point a quick airway inspection was done. There was significant amount of respiratory secretions that were purulent specially in the right side, including the right mainstem bronchus and the bronchus intermedius. Therapeutic airway suctioning was done. The visualized airways included the bilateral mainstem bronchi, right upper lobe bronchus, right middle lobe bronchus, right lower lobe bronchus, left upper lobe bronchus, left lower lobe bronchussegments and subsegments. All of these it was repeated and within normal limits. Following that, the bronchoscope was wedged into the right middle lobe and a bronchioloalveolar lavage was done with total of 6 mL of fluid was infused in 10 mL of bloody aspirate was obtained. Bronchoscope was then wedged into to segment of the right lower lobe where another 60 mL of fluid was infused and an additional 15 mL of bloody aspirate was obtained. At the end of the procedure, therapeutic airway suctioning was done. Bronchoscope was removed. No hemodynamic instability during the procedure. The patient remained quite stable on pressors in the patient's oxidation remains above 90% throughout the procedure. The bronchioloalveolar lavage will be sent for microbial cultures and analysis.
[2019-02-17 12:07] LABS: Glucose,Whole Blood 219 mg/dL (75-99)
--- NOTE | 2019-02-17 12:56 | P.PN ---
Subjective Progress Note Date: 02/16/19 Principal diagnosis: Acute hypoxic respiratory failure Covering for Dr. Helton over the weekend 63-year-old female initially presented for generalized weakness, found to have coffee-ground emesis secondary to gastric and duodenal ulcers. Patient was ordered so noted to have a lung mass with moderate sized pleural effusion on the right side along with lymphadenopathy. Yesterday the patient became hypotensive and was more lethargic after having her peritoneal dialysis. So eventually she was transferred to the ICU, as she was hypotensive bradycardic and unresponsive with respiratory failure. She was intubated and placed on mechanical ventilation. She also had a CAT scan of the brain which was negative for acute acute bleed or stroke. Patient's peritoneal dialysis is on hold as her blood pressures are still running on the lower side. Currently the patient is sedated and intubated and in the ICU. Patient's is at the bedside. Patient's medications and labs have been reviewed. Active Medications Acetaminophen (Tylenol Tab) 650 mg PO Q6HR PRN PRN Reason: Mild Pain or Fever > 100.5 Last Admin: 02/14/19 17:24 Dose: 650 mg Documented by: Albuterol/Ipratropium (Duoneb 0.5 Mg-3 Mg/3 Ml Soln) 3 ml INHALATION RT-Q4H [facility] Last Admin: 02/16/19 11:14 Dose: 3 ml Documented by: Alprazolam (Xanax) 0.25 mg PO Q6HR PRN PRN Reason: Anxiety Atorvastatin Calcium (Lipitor) 20 mg PO HS [facility] Last Admin: 02/15/19 20:23 Dose: 20 mg Documented by: Calcium Carbonate/Glycine (Tums) 500 mg PO Q4HR PRN PRN Reason: Dyspepsia Last Admin: 02/13/19 23:37 Dose: 500 mg Documented by: Chlorhexidine Gluconate (Peridex) 15 ml MUCOUS MEM BID [facility] Last Admin: 02/16/19 09:41 Dose: 15 ml Documented by: Gabapentin (Neurontin) 600 mg PO DAILY PRN PRN Reason: Pain Last Admin: 02/13/19 22:40 Dose: 600 mg Documented by: Sodium Chloride (Saline 0.9%) 1,000 mls @ 100 mls/hr IV .Q10H [facility] Last Admin: 02/16/19 05:48 Dose: 100 mls/hr Documented by: Peritoneal Dialysis Solution (Delflex With 1.5% Dextrose (2,000 Ml)) 30 g in 2,000 mls @ 0 mls/hr INTRAPERIT Q6H [facility]; Protocol Last Admin: 02/16/19 09:31 Dose: Not Given Documented by: Norepinephrine Bitartrate 4 mg (/ Sodium Chloride) 254 mls @ 10.369 mls/hr IV .Q24H [facility]; Protocol Last Titration: 02/16/19 12:18 Dose: 0.2 mcg/kg/min, 41.476 mls/hr Documented by: Propofol 1,000 mg/ IV Solution 100 mls @ 0 mls/hr IV .Q0M [facility]; Protocol Last Titration: 02/16/19 13:19 Dose: 50 mcg/kg/min, 18.03 mls/hr Documented by: Ceftriaxone Sodium 1 gm/ (Sodium Chloride) 50 mls @ 100 mls/hr IVPB Q24HR [facility] Last Admin: 02/16/19 11:00 Dose: 100 mls/hr Documented by: Metronidazole 500 mg/ IV (Solution) 100 mls @ 100 mls/hr IVPB Q8HR [facility] Last Admin: 02/16/19 11:00 Dose: 100 mls/hr Documented by: Insulin Aspart (Novolog) 0 unit SQ Q6H [facility]; Protocol Last Admin: 02/16/19 12:03 Dose: Not Given Documented by: Lactulose (Cephulac) 20 gm PO DAILY PRN PRN Reason: Constipation Magnesium Hydroxide (Milk Of Magnesia) 2,400 mg PO DAILY PRN PRN Reason: Constipation Melatonin (Melatonin) 3 mg PO HS PRN PRN Reason: Insomnia Midodrine (Proamatine) 10 mg PO AC-TID [facility] Last Admin: 02/16/19 12:03 Dose: Not Given Documented by: Miscellaneous Information (Magnesium Per Protocol) 1 each MISCELLANE DAILY PRN; Protocol PRN Reason: Per Protocol Miscellaneous Information (Potassium Per Protocol) 1 each MISCELLANE DAILY PRN; Protocol PRN Reason: Per Protocol Miscellaneous Information (Rx Info: Iv Contrast Was Given) 1 each MISCELLANE DAILY PRN PRN Reason: Per Protocol Stop: 02/18/19 09:30 Naloxone HCl (Narcan) 0.2 mg IV Q2M PRN PRN Reason: Opioid Reversal Nicotine (Habitrol 21mg/24hr Patch) 1 patch TRANSDERM DAILY [facility] Last Admin: 02/16/19 09:30 Dose: Not Given Documented by: Ondansetron HCl (Zofran) 4 mg IVP Q8HR PRN PRN Reason: Nausea And Vomiting Last Admin: 02/14/19 03:54 Dose: 4 mg Documented by: Pantoprazole Sodium (Protonix) 40 mg IVP Q12HR [facility] Last Admin: 02/16/19 09:41 Dose: 40 mg Documented by: Ropinirole HCl (Requip) 1 mg PO BID [facility] Last Admin: 02/16/19 09:30 Dose: Not Given Documented by: Sucralfate (Carafate) 1 gm PO AC-BID [facility] Last Admin: 02/16/19 06:41 Dose: 1 gm Documented by: Review of systems could not be done as the patient is intubated and sedated. Objective - Vital Signs Vital signs: Vital Signs Temp 98.6 F 02/16/19 12:00 Pulse 84 02/16/19 13:15 Resp 28 H 02/16/19 13:15 BP 78/31 02/15/19 16:30 Pulse Ox 99 02/16/19 13:15 Intake & Output 02/15/19 02/16/19 02/16/19 18:59 06:59 18:59 Intake Total 950 5191.230 0402.716 Output Total 0 Balance 950 9683.080 3522.716 Weight 60.1 kg Intake: IV 100 1721 951 Calcium Gluconate 1 gm In 100 Sodium Chloride 0.9% 100 ml @ 100 mls/hr IVPB ONCE ONE Rx#:[id number] Magnesium Sulfate-D5w Pmx 200 1 gm In Dextrose/Water 1 100ml.bag @ 100 mls/hr IVPB Q1H [facility] Rx#: [id number] Potassium Chloride 20 meq 300 100 In Water For Injection 1 100ml.bag @ 50 mls/hr IVPB Q2H [facility] Rx#: [id number] Sodium Chloride 0.9% 1, 100 1100 680 000 ml @ 100 mls/hr IV . Q10H [facility] Rx#:[id number] art line pressure bag 21 21 cefTRIAXone 1 gm In 50 Sodium Chloride 0.9% 50 ml @ 100 mls/hr IVPB Q24HR [facility] Rx#:[id number] metroNIDAZOLE-NS PMX 500 100 mg In Saline 1 100ml.bag @ 100 mls/hr IVPB Q8HR [facility] Rx#:[id number] Intake, IV Titration 850 194.532 395.716 Amount Albumin Human 5% 250 ml 250 In Empty Bag 1 bag @ 250 mls/hr IVPB ONCE ONE Rx#: [id number] Norepinephrine 4 mg In 94.532 278.851 Sodium Chloride 0.9% 250 ml @ 0.05 MCG/KG/MIN 10. 369 mls/hr IV .Q24H [facility] Rx#:[id number] Propofol 1,000 mg In 100.000 116.865 Empty Bag 1 bag @ Titrate IV .Q0M [facility] Rx#: [id number] Sodium Chloride 0.9% 1, 600 000 ml @ 100 mls/hr IV . Q10H [facility] Rx#:[id number] Output: Urine 0 Other: Voiding Method CAPD CAPD CAPD # Voids 0 ABP, PAP, CO, CI - Last Documented Arterial Blood Pressure 119/31 - Exam GEN. APPEARANCE: On a mechanical ventilator and sedated with propofol HEAD EXAM: atraumatic, normocephalic, normal inspection EYE EXAM: Pupils equal and reactive to light ENT EXAM: ET tube in place. NECK EXAM: No JVD. RESPIRATORY EXAM: Diminished breath sounds on the right compared to the left. Coarse breath sounds in all lung potts. CARDIOVASCULAR EXAM: regular rate, normal rhythm, normal heart sounds. GI/ABDOMINAL EXAM: soft, normal bowel sounds. Absent: distended, tenderness, guarding, rebound, rigid EXTREMITIES EXAM: normal inspection, full ROM, normal capillary refill. Absent: tenderness, pedal edema, joint swelling, calf tenderness NEUROLOGICAL EXAM: Intubated and sedated SKIN EXAM: warm, dry, intact, normal color. Absent: rash - Labs CBC & Chem 7: 02/16/19 04:15 02/16/19 10:18 Labs: Abnormal Lab Results - Last 24 Hours (Table) 02/14/19 02/15/19 02/15/19 Range/Units 11:43 15:00 18:12 WBC (3.8-10.6) k/uL RBC (3.80-5.40) m/uL Hgb (11.4-16.0) gm/dL Hct (34.0-46.0) % MCHC (31.0-37.0) g/dL RDW (11.5-15.5) % Plt Count (150-450) k/uL Neutrophils # (1.3-7.7) k/uL Lymphocytes # (1.0-4.8) k/uL ABG pH 7.28 L (7.35-7.45) ABG pO2 >400 H (83-108) mmHg ABG HCO3 20 L (21-25) mmol/L ABG O2 Saturation 99.9 H (94-97) % Sodium (137-145) mmol/L Potassium (3.5-5.1) mmol/L Carbon Dioxide (22-30) mmol/L BUN (7-17) mg/dL Creatinine (0.52-1.04) mg/dL Glucose (74-99) mg/dL POC Glucose (mg/dL) (75-99) mg/dL Hemoglobin A1c 8.1 H (4.0-6.0) % Calcium (8.4-10.2) mg/dL Ionized Calcium Dianelys (4.5-5.3) mg/dL Phosphorus (2.5-4.5) mg/dL Magnesium (1.6-2.3) mg/dL Ammonia (<30) umol/L Procalcitonin 72.13 H (0.02-0.09) ng/mL 02/15/19 02/15/19 02/15/19 Range/Units 20:09 20:10 20:10 WBC 12.0 H (3.8-10.6) k/uL RBC 3.40 L (3.80-5.40) m/uL Hgb 9.3 L D (11.4-16.0) gm/dL Hct 30.9 L (34.0-46.0) % MCHC 30.2 L (31.0-37.0) g/dL RDW 15.6 H (11.5-15.5) % Plt Count 140 L (150-450) k/uL Neutrophils # 10.6 H (1.3-7.7) k/uL Lymphocytes # 0.6 L (1.0-4.8) k/uL ABG pH (7.35-7.45) ABG pO2 (83-108) mmHg ABG HCO3 (21-25) mmol/L ABG O2 Saturation (94-97) % Sodium 133 L (137-145) mmol/L Potassium 2.8 L (3.5-5.1) mmol/L Carbon Dioxide 19 L (22-30) mmol/L BUN 36 H (7-17) mg/dL Creatinine 5.79 H (0.52-1.04) mg/dL Glucose 151 H (74-99) mg/dL POC Glucose (mg/dL) 160 H (75-99) mg/dL Hemoglobin A1c (4.0-6.0) % Calcium 6.7 L (8.4-10.2) mg/dL Ionized Calcium Dianelys (4.5-5.3) mg/dL Phosphorus 5.3 H (2.5-4.5) mg/dL Magnesium 1.4 L (1.6-2.3) mg/dL Ammonia (<30) umol/L Procalcitonin (0.02-0.09) ng/mL 02/16/19 02/16/19 02/16/19 Range/Units 01:16 04:15 04:15 WBC 13.3 H (3.8-10.6) k/uL RBC 3.70 L (3.80-5.40) m/uL Hgb 10.4 L (11.4-16.0) gm/dL Hct 33.6 L (34.0-46.0) % MCHC (31.0-37.0) g/dL RDW (11.5-15.5) % Plt Count (150-450) k/uL Neutrophils # 12.0 H (1.3-7.7) k/uL Lymphocytes # 0.6 L (1.0-4.8) k/uL ABG pH (7.35-7.45) ABG pO2 (83-108) mmHg ABG HCO3 (21-25) mmol/L ABG O2 Saturation (94-97) % Sodium 133 L (137-145) mmol/L Potassium 3.4 L (3.5-5.1) mmol/L Carbon Dioxide 17 L (22-30) mmol/L BUN 36 H (7-17) mg/dL Creatinine 5.68 H (0.52-1.04) mg/dL Glucose 124 H (74-99) mg/dL POC Glucose (mg/dL) 109 H (75-99) mg/dL Hemoglobin A1c (4.0-6.0) % Calcium 7.0 L (8.4-10.2) mg/dL Ionized Calcium Dianelys 4.3 L (4.5-5.3) mg/dL Phosphorus 4.8 H (2.5-4.5) mg/dL Magnesium (1.6-2.3) mg/dL Ammonia (<30) umol/L Procalcitonin (0.02-0.09) ng/mL 02/16/19 02/16/19 02/16/19 Range/Units 04:15 04:25 05:55 WBC (3.8-10.6) k/uL RBC (3.80-5.40) m/uL Hgb (11.4-16.0) gm/dL Hct (34.0-46.0) % MCHC (31.0-37.0) g/dL RDW (11.5-15.5) % Plt Count (150-450) k/uL Neutrophils # (1.3-7.7) k/uL Lymphocytes # (1.0-4.8) k/uL ABG pH 7.28 L (7.35-7.45) ABG pO2 140 H (83-108) mmHg ABG HCO3 19 L (21-25) mmol/L ABG O2 Saturation 98.4 H (94-97) % Sodium (137-145) mmol/L Potassium (3.5-5.1) mmol/L Carbon Dioxide (22-30) mmol/L BUN (7-17) mg/dL Creatinine (0.52-1.04) mg/dL Glucose (74-99) mg/dL POC Glucose (mg/dL) 132 H (75-99) mg/dL Hemoglobin A1c (4.0-6.0) % Calcium (8.4-10.2) mg/dL Ionized Calcium Dianelys (4.5-5.3) mg/dL Phosphorus (2.5-4.5) mg/dL Magnesium (1.6-2.3) mg/dL Ammonia 44 H (<30) umol/L Procalcitonin (0.02-0.09) ng/mL 02/16/19 Range/Units 12:01 WBC (3.8-10.6) k/uL RBC (3.80-5.40) m/uL Hgb (11.4-16.0) gm/dL Hct (34.0-46.0) % MCHC (31.0-37.0) g/dL RDW (11.5-15.5) % Plt Count (150-450) k/uL Neutrophils # (1.3-7.7) k/uL Lymphocytes # (1.0-4.8) k/uL ABG pH (7.35-7.45) ABG pO2 (83-108) mmHg ABG HCO3 (21-25) mmol/L ABG O2 Saturation (94-97) % Sodium (137-145) mmol/L Potassium (3.5-5.1) mmol/L Carbon Dioxide (22-30) mmol/L BUN (7-17) mg/dL Creatinine (0.52-1.04) mg/dL Glucose (74-99) mg/dL POC Glucose (mg/dL) 64 L (75-99) mg/dL Hemoglobin A1c (4.0-6.0) % Calcium (8.4-10.2) mg/dL Ionized Calcium Dianelys (4.5-5.3) mg/dL Phosphorus (2.5-4.5) mg/dL Magnesium (1.6-2.3) mg/dL Ammonia (<30) umol/L Procalcitonin (0.02-0.09) ng/mL Microbiology - Last 24 Hours (Table) 02/13/19 00:00 Anaerobic Culture - Preliminary Catheter Site 02/14/19 06:00 Gram Stain - Preliminary Peritoneal Fluid Body Fluid Culture - Preliminary Assessment and Plan Assessment: ASSESSMENT Acute hypoxic respiratory failure - possibly due to right pleural effusion Right lung mass with lymphadenopathy and pleural effusion-high possibility of malignancy Gastric and duodenal ulcers End-stage renal disease on peritoneal dialysis COPD Hypotensive shock- hypovolemic versus sepsis Hypertension history Type 2 diabetes mellitus Diabetic peripheral neuropathy Hyperlipidemia Plan: Patient is currently on mechanical ventilation and also on pressor support on Levophed at 20 mics. Plan is to get a CT of the chest to see the extent of pleural effusion. Patient has been empirically started on antibiotics with ceftriaxone and Flagyl for concerns of aspiration.Peritoneal dialysis on hold for now as the patient's blood pressure is running low. Overall prognosis is poor. Treatment plan was discussed with the patient's in detail at the bedside.
--- NOTE | 2019-02-17 15:43 | P.PN ---
Subjective Progress Note Date: 02/17/19 Principal diagnosis: Coffee-ground emesis, anemia acute blood loss Patient seen lying in bed intubated and sedated. No signs or symptoms of GI bleeding reported. No bowel movements reported. Objective - Vital Signs Vital signs: Vital Signs Temp 98.5 F 02/17/19 08:00 Pulse 93 02/17/19 08:00 Resp 23 02/17/19 08:00 BP 109/26 02/16/19 17:25 Pulse Ox 99 02/17/19 08:00 Intake & Output 02/16/19 02/17/19 02/17/19 18:59 06:59 18:59 Intake Total 2360.886 6606.567 0471 Output Total 0 Balance 2360.886 7337.840 4480 Weight 60.1 kg Intake: IV 1729 1233 1103 Dextrose 5% in Water 1, 100 000 ml @ 100 mls/hr IV . [id number] [facility] with Sodium Bicarb (1 Meq/ml) 150 ml Rx#:[id number] Potassium Chloride 20 meq 100 In Water For Injection 1 100ml.bag @ 50 mls/hr IVPB Q2H [facility] Rx#: [id number] Sodium Chloride 0.9% 1, 1240 1100 000 ml @ 100 mls/hr IV . Q10H [facility] Rx#:[id number] Sodium Chloride 0.9% 1, 1000 000 ml @ 999 mls/hr IV . Q1H1M [facility] Rx#:[id number] art line pressure bag 39 33 3 cefTRIAXone 1 gm In 150 Sodium Chloride 0.9% 50 ml @ 100 mls/hr IVPB Q24HR [facility] Rx#:[id number] metroNIDAZOLE-NS PMX 500 200 100 mg In Saline 1 100ml.bag @ 100 mls/hr IVPB Q8HR [facility] Rx#:[id number] Intake, IV Titration 561.886 407.662 Amount Norepinephrine 32 mg In 60.524 Sodium Chloride 0.9% 218 ml @ 0.05 MCG/KG/MIN 1. 409 mls/hr IV .Q24H [facility] Rx#:[id number] Norepinephrine 4 mg In 413.468 147.138 Sodium Chloride 0.9% 250 ml @ 0.05 MCG/KG/MIN 10. 369 mls/hr IV .Q24H [facility] Rx#:[id number] Propofol 1,000 mg In 148.418 200 Empty Bag 1 bag @ Titrate IV .Q0M [facility] Rx#: [id number] Tube Feeding 10 138 17 Other 60 90 30 Output: Urine 0 Other: Voiding Method CAPD CAPD CAPD # Voids 1 0 ABP, PAP, CO, CI - Last Documented Arterial Blood Pressure 159/40 - Exam On physical examination, patient appears comfortable in no apparent distress. HEAD: Normocephalic, atraumatic. EYES: No scleral icterus. No conjunctival injection. MOUTH: No lesions, tongue midline, ET tube in place. NECK: Trachea midline, no gross abnormalities. CHEST: Coarse respiratory noises in all lung potts consistent with intubation and mechanical ventilation. HEART: Regular rate and rhythm. ABDOMEN: Soft, obese. Bowel sounds are positive. No organomegaly. No guarding or rigidity. EXTREMITIES: No pedal edema. SKIN: No rashes, no jaundice. NEUROLOGIC: Sedated. - Labs CBC & Chem 7: 02/17/19 04:07 02/17/19 04:07 Labs: Abnormal Lab Results - Last 24 Hours (Table) 02/16/19 02/16/19 02/16/19 Range/Units 12:01 18:11 20:45 WBC (3.8-10.6) k/uL RDW (11.5-15.5) % Plt Count (150-450) k/uL Neutrophils # (Manual) (1.3-7.7) k/uL Lymphocytes # (Manual) (1.0-4.8) k/uL Monocytes # (Manual) (0-1.0) k/uL Myelocytes # (Manual) (0) k/uL ABG pH (7.35-7.45) ABG HCO3 (21-25) mmol/L ABG Total CO2 (19-24) mmol/L ABG Lactic Acid (0.5-1.6) mmol/L Sodium (137-145) mmol/L Carbon Dioxide (22-30) mmol/L BUN (7-17) mg/dL Creatinine (0.52-1.04) mg/dL Glucose (74-99) mg/dL POC Glucose (mg/dL) 64 L 125 H (75-99) mg/dL Calcium (8.4-10.2) mg/dL Ionized Calcium Dianelys (4.5-5.3) mg/dL Phosphorus (2.5-4.5) mg/dL Alkaline Phosphatase (38-126) U/L Ammonia (<30) umol/L Total Protein (6.3-8.2) g/dL Albumin 1.6 L (3.5-5.0) g/dL 02/16/19 02/16/19 02/17/19 Range/Units 20:45 23:51 04:00 WBC (3.8-10.6) k/uL RDW (11.5-15.5) % Plt Count (150-450) k/uL Neutrophils # (Manual) (1.3-7.7) k/uL Lymphocytes # (Manual) (1.0-4.8) k/uL Monocytes # (Manual) (0-1.0) k/uL Myelocytes # (Manual) (0) k/uL ABG pH (7.35-7.45) ABG HCO3 (21-25) mmol/L ABG Total CO2 (19-24) mmol/L ABG Lactic Acid 2.0 H (0.5-1.6) mmol/L Sodium (137-145) mmol/L Carbon Dioxide (22-30) mmol/L BUN (7-17) mg/dL Creatinine (0.52-1.04) mg/dL Glucose (74-99) mg/dL POC Glucose (mg/dL) 200 H (75-99) mg/dL Calcium (8.4-10.2) mg/dL Ionized Calcium Dianelys (4.5-5.3) mg/dL Phosphorus (2.5-4.5) mg/dL Alkaline Phosphatase (38-126) U/L Ammonia 76 H (<30) umol/L Total Protein (6.3-8.2) g/dL Albumin (3.5-5.0) g/dL 02/17/19 02/17/19 02/17/19 Range/Units 04:07 04:07 04:07 WBC 33.3 H (3.8-10.6) k/uL RDW 16.2 H (11.5-15.5) % Plt Count 127 L (150-450) k/uL Neutrophils # (Manual) 28.60 H (1.3-7.7) k/uL Lymphocytes # (Manual) 0.67 L (1.0-4.8) k/uL Monocytes # (Manual) 3.00 H (0-1.0) k/uL Myelocytes # (Manual) 1.00 H (0) k/uL ABG pH (7.35-7.45) ABG HCO3 (21-25) mmol/L ABG Total CO2 (19-24) mmol/L ABG Lactic Acid 3.7 H* (0.5-1.6) mmol/L Sodium 132 L (137-145) mmol/L Carbon Dioxide 13 L (22-30) mmol/L BUN 30 H (7-17) mg/dL Creatinine 4.97 H (0.52-1.04) mg/dL Glucose 158 H (74-99) mg/dL POC Glucose (mg/dL) (75-99) mg/dL Calcium 6.4 L* (8.4-10.2) mg/dL Ionized Calcium Dianelys (4.5-5.3) mg/dL Phosphorus 5.2 H (2.5-4.5) mg/dL Alkaline Phosphatase 295 H (38-126) U/L Ammonia (<30) umol/L Total Protein 4.3 L (6.3-8.2) g/dL Albumin 1.6 L (3.5-5.0) g/dL 02/17/19 02/17/19 02/17/19 Range/Units 04:20 04:45 05:52 WBC (3.8-10.6) k/uL RDW (11.5-15.5) % Plt Count (150-450) k/uL Neutrophils # (Manual) (1.3-7.7) k/uL Lymphocytes # (Manual) (1.0-4.8) k/uL Monocytes # (Manual) (0-1.0) k/uL Myelocytes # (Manual) (0) k/uL ABG pH 7.17 L* (7.35-7.45) ABG HCO3 13 L (21-25) mmol/L ABG Total CO2 15 L (19-24) mmol/L ABG Lactic Acid (0.5-1.6) mmol/L Sodium (137-145) mmol/L Carbon Dioxide (22-30) mmol/L BUN (7-17) mg/dL Creatinine (0.52-1.04) mg/dL Glucose (74-99) mg/dL POC Glucose (mg/dL) 189 H (75-99) mg/dL Calcium (8.4-10.2) mg/dL Ionized Calcium Dianelys 4.2 L (4.5-5.3) mg/dL Phosphorus (2.5-4.5) mg/dL Alkaline Phosphatase (38-126) U/L Ammonia (<30) umol/L Total Protein (6.3-8.2) g/dL Albumin (3.5-5.0) g/dL Microbiology - Last 24 Hours (Table) 02/14/19 06:00 Gram Stain - Preliminary Peritoneal Fluid Body Fluid Culture - Preliminary 02/17/19 00:50 Genital Culture - Preliminary Vaginal 02/16/19 09:50 Gram Stain - Preliminary Sputum Sputum Culture - Preliminary 02/15/19 15:00 Blood Culture - Preliminary Blood No Growth after 24 hours 02/13/19 00:00 Anaerobic Culture - Preliminary Catheter Site Assessment and Plan (1) Coffee ground emesis Narrative/Plan: 63-year-old female with multiple medical comorbidities who presented to the hospital with complaints of coffee-ground emesis. The patient was taken for upper endoscopy with findings of erosive esophagitis, 3 nonbleeding antral ulcers and duodenitis/ulceration of the duodenum. No active bleeding was seen on EGD. No further signs or symptoms of GI bleeding. The patient was subsequently brought to the ICU and intubated. Hemoglobin has remained stable at 11.8 today. Current Visit: Yes Status: Acute Code(s): K92.0 - HEMATEMESIS SNOMED Code(s): 97311806 (2) Acute blood loss anemia Current Visit: Yes Status: Acute Code(s): D62 - ACUTE POSTHEMORRHAGIC ANEMIA SNOMED Code(s): 510697130 Plan: Supportive care Appreciate ICU management, intensive this consultation Continue to monitor hemoglobin and transfuse as needed Continue to monitor for signs and symptoms of GI bleeding Continue Protonix IV twice daily, okay to convert to oral after extubation Okay for diet when patient is more alert and extubated No further endoscopy is planned at this time Thank you for allowing us to participate in the care of the patient, the [facility] service will stand by, please call us back with any questions or concerns
[2019-02-17 18:02] LABS: Glucose,Whole Blood 260 mg/dL (75-99)
[2019-02-17] MEDS: ATORVASTATIN 20 MG TAB PO SCH (20:54)
[2019-02-18] MEDS: INSULIN ASPART (NovoLOG) 100 UNIT/ML VIAL SQ SCH ×2 (00:09→06:22)
[2019-02-18] MEDS: metroNIDAZOLE-NS PMX 500 MG in SALINE 1 100ML.BAG IVPB SCH ×3 (00:10→16:17)
[2019-02-18 00:16] LABS: Glucose,Whole Blood 306 mg/dL (75-99)
[2019-02-18] MEDS: IPRATROPIUM-ALBUTEROL 3 ML NEB INHALATION SCH ×6 (03:08→23:47)
[2019-02-18] MEDS: DIALYSIS (PERIT 1.5%) 2,000 ML 30 G/2,000 ML BAG INTRAPERIT SCH ×2 (04:11→10:34)
[2019-02-18] MEDS: NOREPINEPHRINE 32 MG in SODIUM CHLORIDE 0.9% 218 ML IV SCH (04:16)
[2019-02-18 04:30] LABS: ABG Base Excess -8.8 mmol/L; ABG HCO3 18 mmol/L (21-25); ABG Oxygen Saturation 95.6 % (94-97); ABG PCO2 42 mmHg (35-45); ABG PH 7.25 (7.35-7.45); ABG PO2 82 mmHg (83-108); ABG TCO2 20 mmol/L (19-24)
[2019-02-18 04:43] LABS: Anisocytosis Slight; HCT 36.2 % (34.0-46.0); HGB 11.6 gm/dL (11.4-16.0); Hypochromasia Moderate; MCH 28.8 pg (25.0-35.0); MCHC 32.1 g/dL (31.0-37.0); MCV 89.8 fL (80.0-100.0); Mean Platelet Volume 8.3; RBC 4.03 m/uL (3.80-5.40); RDW 16.2 % (11.5-15.5); WBC 37.4 k/uL (3.8-10.6)
[2019-02-18 04:52] LABS: Magnesium 1.6 mg/dL (1.6-2.3); Potassium 3.4 mmol/L (3.5-5.1)
[2019-02-18] MEDS: PROPOFOL 1,000 MG in EMPTY BAG 1 BAG IV SCH ×2 (04:56→14:10)
[2019-02-18 05:07] LABS: Calcium 6.4 mg/dL (8.4-10.2)
[2019-02-18] MEDS ORDERED: MAGNESIUM SULFATE-D5W PMX 1 GM in DEXTROSE/WATER 1 100ML.BAG IVPB ONE (06:00)
[2019-02-18 06:08] LABS: Glucose,Whole Blood 201 mg/dL (75-99)
[2019-02-18] MEDS: POTASSIUM BICARBONATE/CIT AC 20 MEQ TABLET.EFF NG-TUBE SCH ×2 (06:22→08:34)
[2019-02-18] MEDS ORDERED: CALCIUM GLUCONATE 1 GM in SODIUM CHLORIDE 0.9% 100 ML IVPB ONE (06:30)
[2019-02-18] MEDS: DEXTROSE 5% IN WATER 1,000 ML with SODIUM BICARB (1 MEQ/ML) 150 ML IV SCH ×2 (06:38→18:45)
[2019-02-18 06:42] LABS: Platelet Count 77 k/uL (150-450)
[2019-02-18 06:43] LABS: Polychromasia Present
[2019-02-18 06:50] LABS: Band Neutrophils % 28 %; Lymphocytes # (M) 0.37 k/uL (1.0-4.8); Metamyelocytes # (M) 0.75 k/uL (0); Metamyelocytes % 2 %; Monocytes # (M) 0.75 k/uL (0-1.0); Neutrophils % (M) 67 %; Nucleated Red Blood Cells 0 /100 WBC (0-0); Total Cells Counted 100
[2019-02-18 07:46] LABS: ABG PH 7.17 (7.35-7.45)
[2019-02-18 07:48] LABS: Glucose,Whole Blood 53 mg/dL (75-99)
[2019-02-18 07:49] LABS: Glucose,Whole Blood 152 mg/dL (75-99)
--- NOTE | 2019-02-18 08:30 | XR ---
EXAMINATION TYPE: XR chest 1V portable DATE OF EXAM: 02/18/2019 COMPARISON: 02/16/2019 HISTORY: Tube placement TECHNIQUE: Single frontal view of the chest is obtained. FINDINGS: ET and NG tube stable. Bilateral infiltrate and pleural effusion. The right stable. Diffus e interstitial pattern. No pneumothorax. Heart is enlarged. Atherosclerotic change aorta. IMPRESSION: 1. Diffuse airspace disease with pleural effusion stable correlate for CHF with pulmonary edema versu s pneumonia.
[2019-02-18] MEDS: SUCRALFATE 1 GM TAB PO SCH ×2 (08:33→16:30)
[2019-02-18] MEDS: CALCIUM CARBONATE LIQUID 500 MG/5 ML CUP PO SCH ×2 (08:33→16:50)
[2019-02-18] MEDS: PANTOPRAZOLE 40 MG/10 ML VIAL IVP SCH ×2 (08:34→21:19)
[2019-02-18] MEDS: CHLORHEXIDINE GLUCONATE 15 ML CUP MUCOUS MEM SCH ×2 (08:34→21:19)
[2019-02-18] MEDS: NICOTINE 21MG/24HR PATCH TRANSDERM SCH (08:36)
[2019-02-18] MEDS ORDERED: INSULIN REGULAR BOLUS (FROM DRIP BAG) IV PRN (08:47)
[2019-02-18] MEDS: MIDODRINE 5 MG TAB PO SCH ×3 (08:51→16:50)
[2019-02-18] MEDS ORDERED: VANCOMYCIN 1,000 MG in SODIUM CHLORIDE 0.9% 250 ML IVPB ONE (09:00)
[2019-02-18 09:53] LABS: Glucose,Whole Blood 281 mg/dL (75-99)
[2019-02-18] MEDS: INSULIN REGULAR 100 UNIT in SODIUM CHLORIDE 0.9% 100 ML IV SCH ×2 (09:57→23:25)
[2019-02-18 10:41] LABS: Glucose,Whole Blood 338 mg/dL (75-99)
--- NOTE | 2019-02-18 10:52 | P.PN ---
Subjective Progress Note Date: 02/18/19 Principal diagnosis: Acute hypoxic respiratory failure, pneumonia, and septic shock. This is a 63-year-old female patient with known history of COPD, diabetes mellitus, hypertension hyperlipidemia and she has also dialysis-dependent renal failure and the patient is undergoing peritoneal dialysis. The patient came into the hospital feeling weak, dizzy and lightheaded. She stated that she was hardly able to walk. She hasn't been eating or drinking for several days. She stated that she had only 2 bottles of water over the past few days. No nausea. No vomiting. No diarrhea. No altered mentation. She had been undergoing Peritoneal dialysis. No fever. No chills. The patient had a chest x-ray in the emergency department that showed right basilar opacity/mass/atelectasis with effusion. This was followed up by CAT scan of the chest that showed a moderate- sized right-sided pleural effusion in addition to masslike consolidation in the right lower lobe and the right upper lobe. There was also enlarged right paratracheal lymph nodes measuring 18 x 12 mm in size and anterior mediastinal lymph node measuring 1.5 cm. There is a questionable right hilar mass in addition. This CAT scan was done without contrast. Another masslike consolidation is present in the right upper lobe lateral chest area measuring 6 x 2.5 cm in size. No focal bony destruction. The patient during this current hospital stay. Large-volume coffee-ground emesis 5. For that reason the patient was seen by gastroenterology and the patient is going to undergo an EGD today. Upon further questioning, the patient is a chronic smoker. She has recently seen Dr. Williamson regarding possibility of lung cancer. No further recommendations are made by her senior media director in that regard. On 02/15/2019 patient seen in follow-up on medical surgical floor. The rapid response team was called in regards to patient's hypotension today. The blood pressure dropped down as low as 57/35, and has been noted to be more lethargic. Afebrile, she is on room air, maintaining good oxygenation, patient had her peritoneal dialysis exchange this morning, and she had 200 mL of fluid removed with peritoneal dialysis this morning. She was started on oral Midrin, she is receiving IV normal saline at a rate of 100 ML per hour, and we'll give the patient 250 mL of 5% albumin. She has had no further vomiting or diarrhea, no hematemesis, no melena. Today's hemoglobin is 11.3, with blood cell count is 7 .5, sodium is 135, potassium 3.2, CO2 is 19, BUN is 39, creatinine is 6.15, peritoneal fluid cultures have shown no growth so far. Patient's lung sounds are diminished, with the bibasilar crackles. She is arousable to verbal stimuli, but drowsy. Denies any chest pain. On 02/18/2019, patient was seen on follow-up for her acute septic shock pneumonia and acute hypoxic respiratory failure. Remains on mechanical ventilation, presently her ventilator settings are assist control rate of 16 tidal volume of 400 FiO2 of 40% PEEP of 5. ABG showed a pO2 of 82 pCO2 of 42 pH of 7.25, patient remains on bicarb drip. Her peak airway pressure is 34 plateau pressure is 28. Remains on propofol at 35 mcg/kg/m, norepinephrine at 16 mcg/m, and on bicarb drip., Insulin will be started today for elevated blood sugars. Chest x-ray continues to show evidence of bilateral consolidations and pleural effus ions, diffuse airspace disease with a combination of congestive heart failure/pulmonary edema and pneumonia is strongly suspected. Remains on peritoneal dialysis, remains on broad-spectrum antibiotics, and her sputum seems to be positive for staph aureus, and pseudomonas so far. Both are being covered empirically at this point. CBC showed leukocytosis with WBC count of 37.4 hemoglobin is 11.6. Platelets are 77,000. Electrolytes were reviewed low- sodium, low potassium, bicarb remains low at 17 BUN is 29 creatinine 4.01. Ammonia level is 54 today. Hence lactulose will be started for elevated ammonia level. Objective - Vital Signs Vital signs: Vital Signs Temp 97.7 F 02/18/19 08:00 Pulse 91 02/18/19 09:15 Resp 25 H 02/18/19 09:15 BP 102/34 02/18/19 09:00 Pulse Ox 96 02/18/19 09:15 Intake & Output 02/17/19 02/18/19 02/18/19 18:59 06:59 18:59 Intake Total 3052.877 1598.174 638.175 Output Total 500 Balance 2552.877 1598.174 638.175 Weight 62 kg Intake: IV 2486 1133 406 Dextrose 5% in Water 1, 1200 1100 300 000 ml @ 100 mls/hr IV . [id number] DANISHA with Sodium Bicarb (1 Meq/ml) 150 ml Rx#:[id number] Sodium Chloride 0.9% 1, 1000 000 ml @ 999 mls/hr IV . Q1H1M ONE Rx#:[id number] art line pressure bag 36 33 6 cefTRIAXone 1 gm In 50 Sodium Chloride 0.9% 50 ml @ 100 mls/hr IVPB Q24HR [facility] Rx#:[id number] metroNIDAZOLE-NS PMX 500 200 100 mg In Saline 1 100ml.bag @ 100 mls/hr IVPB Q8HR [facility] Rx#:[id number] Intake, IV Titration 246.877 218.174 181.175 Amount Calcium Gluconate 1 gm In 100 Sodium Chloride 0.9% 100 ml @ 100 mls/hr IVPB ONCE ONE Rx#:[id number] Insulin Regular 100 unit 3.636 In Sodium Chloride 0.9% 100 ml @ Per Protocol IV .Q0M [facility] Rx#:[id number] Norepinephrine 32 mg In 83.772 80.287 25.459 Sodium Chloride 0.9% 218 ml @ 0.05 MCG/KG/MIN 1. 409 mls/hr IV .Q24H [facility] Rx#:[id number] Propofol 1,000 mg In 163.105 137.887 52.08 Empty Bag 1 bag @ Titrate IV .Q0M [facility] Rx#: [id number] Tube Feeding 170 187 51 Other 150 60 Output: Urine 0 Other 500 Other: Voiding Method CAPD CAPD # Voids 0 1 ABP, PAP, CO, CI - Last Documented Arterial Blood Pressure 46/23 - Exam Physical Exam: Revealed a 63-year-old female, sedated, on propofol, on mechan ical ventilation, in no distress. Head: Atraumatic, normocephalic. HEENT:[Neck is supple.] [No neck masses.] [No thyromegaly.] [No JVD.]. The right pupil is larger than the left pupil, nonreactive to light. EOMI, no icterus. Mucous membranes are moist. Endotracheal tube and orogastric tube are intact. Chest: Diminished breath sounds at the bases, crackles and rhonchi noted at the bases bilaterally. Symmetrical chest expansion noted. No chest wall deformity. Cardiac Exam: [Normal S1 and S2, no S3 gallop, no murmur.] Abdomen: [Soft, nontender, no megaly, no rebound, no guarding, normal bowel sounds.] Extremities: [No clubbing, 1+ bipedal edema, no cyanosis.] Patient has a right femoral triple-lumen catheter. There is 1+ bipedal edema, and an old AV fistula noted in the left arm. Supposedly functional. Neurological Exam: Cannot be assessed, patient is fully sedated on propofol dri p. There is however right pupil seems to be larger than the left pupil Psychiatric could not be assessed, patient is sedated on propofol drip. Skin: No rashes. Lymphatics: No lymphadenopathy. - Labs CBC & Chem 7: 02/18/19 04:30 02/18/19 04:30 Labs: Abnormal Lab Results - Last 24 Hours (Table) 02/16/19 02/16/19 02/17/19 Range/Units 12:19 12:20 04:20 WBC (3.8-10.6) k/uL RDW (11.5-15.5) % Plt Count (150-450) k/uL Neutrophils # (Manual) (1.3-7.7) k/uL Lymphocytes # (Manual) (1.0-4.8) k/uL Metamyelocytes # (Man) (0) k/uL ABG pH 7.17 L* (7.35-7.45) ABG pO2 (83-108) mmHg ABG HCO3 (21-25) mmol/L Sodium (137-145) mmol/L Potassium (3.5-5.1) mmol/L Carbon Dioxide (22-30) mmol/L BUN (7-17) mg/dL Creatinine (0.52-1.04) mg/dL Glucose (74-99) mg/dL POC Glucose (mg/dL) 53 L 152 H (75-99) mg/dL Calcium (8.4-10.2) mg/dL Ammonia (<30) umol/L 02/17/19 02/17/19 02/18/19 Range/Units 11:55 17:51 00:04 WBC (3.8-10.6) k/uL RDW (11.5-15.5) % Plt Count (150-450) k/uL Neutrophils # (Manual) (1.3-7.7) k/uL Lymphocytes # (Manual) (1.0-4.8) k/uL Metamyelocytes # (Man) (0) k/uL ABG pH (7.35-7.45) ABG pO2 (83-108) mmHg ABG HCO3 (21-25) mmol/L Sodium (137-145) mmol/L Potassium (3.5-5.1) mmol/L Carbon Dioxide (22-30) mmol/L BUN (7-17) mg/dL Creatinine (0.52-1.04) mg/dL Glucose (74-99) mg/dL POC Glucose (mg/dL) 219 H 260 H 306 H (75-99) mg/dL Calcium (8.4-10.2) mg/dL Ammonia (<30) umol/L 02/18/19 02/18/19 02/18/19 Range/Units 04:28 04:30 04:30 WBC 37.4 H (3.8-10.6) k/uL RDW 16.2 H (11.5-15.5) % Plt Count 77 L (150-450) k/uL Neutrophils # (Manual) 35.50 H (1.3-7.7) k/uL Lymphocytes # (Manual) 0.37 L (1.0-4.8) k/uL Metamyelocytes # (Man) 0.75 H (0) k/uL ABG pH 7.25 L (7.35-7.45) ABG pO2 82 L (83-108) mmHg ABG HCO3 18 L (21-25) mmol/L Sodium 130 L (137-145) mmol/L Potassium 3.4 L (3.5-5.1) mmol/L Carbon Dioxide 17 L (22-30) mmol/L BUN 29 H (7-17) mg/dL Creatinine 4.01 H (0.52-1.04) mg/dL Glucose 295 H (74-99) mg/dL POC Glucose (mg/dL) (75-99) mg/dL Calcium 6.4 L* (8.4-10.2) mg/dL Ammonia (<30) umol/L 04/15/19 04/15/19 04/15/19 Range/Units 05:57 09:16 09:41 WBC (3.8-10.6) k/uL RDW (11.5-15.5) % Plt Count (150-450) k/uL Neutrophils # (Manual) (1.3-7.7) k/uL Lymphocytes # (Manual) (1.0-4.8) k/uL Metamyelocytes # (Man) (0) k/uL ABG pH (7.35-7.45) ABG pO2 (83-108) mmHg ABG HCO3 (21-25) mmol/L Sodium (137-145) mmol/L Potassium (3.5-5.1) mmol/L Carbon Dioxide (22-30) mmol/L BUN (7-17) mg/dL Creatinine (0.52-1.04) mg/dL Glucose (74-99) mg/dL POC Glucose (mg/dL) 201 H 281 H (75-99) mg/dL Calcium (8.4-10.2) mg/dL Ammonia 54 H (<30) umol/L Microbiology - Last 24 Hours (Table) 02/16/19 09:50 Gram Stain - Preliminary Sputum Sputum Culture - Preliminary Presumptive Staph aureus Pseudomonas aeruginosa Gram Neg Bacilli 02/14/19 06:00 Gram Stain - Final Peritoneal Fluid Body Fluid Culture - Final 02/13/19 00:00 Anaerobic Culture - Final Catheter Site 02/15/19 15:00 Blood Culture - Preliminary Blood No Growth after 48 hours 02/17/19 00:50 Genital Culture - Preliminary Vaginal Assessment and Plan Assessment: Impression: 1 acute hypoxic respiratory failure secondary to pneumonia, likely community- acquired, and suspected diastolic congestive heart failure. 2 acute sepsis and septic shock secondary to pneumonia, remains on broad- spectrum antibiotics. 3 suspect erosive gastritis and upper GI bleeding patient remains on Protonix, hemoglobin is stable at 11.6 4 chronic end-stage renal disease on peritoneal dialysis. 5 acute metabolic acidosis secondary to sepsis and underlying chronic kidney disease. 6 COPD, presently inactive 7 type 2 diabetes presently on insulin drip 8 benign essential hypertension 9 leukocytosis secondary to sepsis and septic shock 10 non-anion gap metabolic acidosis Recommendation: Continue ventilatory support, hemodynamic support presently on norepinephrine, nutritional support, enteral feeding, antibiotics for positive sputum cultures and adjust antibiotics accordingly. Patient is presently on cefepime and Flagyl and vancomycin. Her sputum has been positive for staph aureus and pseudomonas so far. Bronchoalveolar lavage culture is pending. Continue bicarb drip for severe metabolic acidosis continue GI and DVT prophylaxis continue daily assessment of mental status and possibly weaning if possible, but clearly today the patient is not ready for any weaning. Instructed the nurses to hold sedation, assess mental status, and recently date and keep on mechanical ventilation today. Patient is clearly critically ill, she will remain in the ICU, prognosis is definitely poor and guarded, we'll continue to follow with other consultants including nephrology, continue peritoneal dialysis, may have to consider hemodialysis. Critical care time is 40 minutes Time with Patient: Greater than 30
[2019-02-18 11:30] LABS: Glucose,Whole Blood 282 mg/dL (75-99)
[2019-02-18] MEDS: LACTULOSE 20 GM/30 ML CUP PO SCH ×3 (11:52→21:19)
[2019-02-18 12:02] LABS: Glucose,Whole Blood 232 mg/dL (75-99)
[2019-02-18 13:16] LABS: Glucose,Whole Blood 242 mg/dL (75-99)
--- NOTE | 2019-02-18 13:46 | PN ---
PROGRESS NOTE Patient is seen for followup for end-stage renal disease. She is maintained on peritoneal dialysis. Patient was initially admitted to the hospital with weakness. She was found to be hypotensive and transferred to the ICU. Eventually she was in respiratory distress, hypoxic and was intubated. She is found to have right lung pneumonia. Initially there was concern for right lung mass. However, on CT, it looks mostly all infiltrates. Sputum culture has grown Staph aureus and Pseudomonas. Patient is maintained on antibiotics. She is also requiring Levophed, which is currently slightly lower than yesterday. Patient is also maintained on a bicarb drip. We have been using the 1.5% solutions and patient has been getting about 300-600 mL with each exchange. She does have of an access, an AV fistula in her her left arm which has recently had intervention by Dr. Lauren. It does have a bruit and thrill. PHYSICAL EXAMINATION: On examination today, patient remains on the vent. She is sedated. Blood pressure this morning 102/34, heart rate 101 per minute, patient is afebrile. Examination of the heart, S1, S2. Examination of the lungs, bilateral breath sounds are heard. Abdomen is soft. Examination of the lower extremities shows edema 1+ bilaterally. There is edema noted in the upper extremities as well. AV fistula does have a bruit in the left arm. UTILITY ACCOUNTS DIRECTOR exam cannot be performed. LABS: Show hemoglobin 11.6, white cell count 37.4. Sodium 130, potassium 3.4, BUN 29, serum creatinine 4.0, calcium 6.4, magnesium 1.6. ASSESSMENT: 1. End-stage renal disease, on peritoneal dialysis. Continue current PD exchanges. We will consult with Dr. Lauren if her AV fistula is usable. However, given the high requirement of Levophed, I will continue with the PD exchanges for now. The patient has been getting UF of about 800-900 mL for 24 hours with peritoneal dialysis. However, her clearances appear to be okay. Serum creatinine is not significantly elevated. Patient remains acidotic and she is maintained on a bicarb drip. We may try a session of hemodialysis tomorrow if the Levophed is lower and if her access is functional. 2. Septic shock from right lung pneumonia with sputum culture growing Staphylococcus aureus and Pseudomonas. 3. Hypoxic respiratory failure from pneumonia. 4. Hypokalemia associated with peritoneal dialysis, status post replacement. 5. Metabolic acidosis, anion gap secondary to sepsis, lactic acidosis, maintained on a bicarb drip. PLAN: Continue with PD exchanges for now. Try to decrease Levophed. Continue bicarb drip. Repeat labs this evening. The hypokalemia is also exacerbated by the bicarb drip. Continue the antibiotic coverage and consult Dr. Lauren. MMODL / IJN: [id number] /
--- NOTE | 2019-02-18 13:50 | ECHOF ---
Referral Reason:CHF MEASUREMENTS -------- HEIGHT: 157.5 cm WEIGHT: 61.7 kg BP: IVSd: 1.5 cm (0.6 - 1.1) LVIDd: 3.5 cm (3.9 - 5.3) LVPWd: 1.6 cm (0.6 - 1.1) IVSs: 1.7 cm LVIDs: 2.2 cm LVPWs: 1.7 cm Ao Diam: 2.6 cm (2.0 - 3.7) LA Diam: 3.3 cm (2.7 - 3.8) MV E Elkin: 0.63 m/s MV DecT: 391 ms MV A Elkin: 1.05 m/s MV E/A Ratio: 0.60 AR PHT: 413 ms FINDINGS -------- Sinus rhythm. This was a technically adequate study. The left ventricular size is normal. There is mild concentric left ventricular hypertrophy. Overa ll left ventricular systolic function is low-normal with, an EF between 50 - 55 %. The right ventricle is normal in size. The left atrial size is normal. The right atrial size is normal. There is mild aortic regurgitation. The mitral valve leaflets are mildly thickened. Mild mitral annular calcification present. Mild m itral regurgitation is present. AML is redundant , advised LA to better visualise MV Mild tricuspid regurgitation present. There is no evidence of pulmonary hypertension. The right v entricular systolic pressure, as measured by Doppler, is {RVSP}. There is no pulmonic regurgitation present. The aortic root size is normal. There is no pericardial effusion. CONCLUSIONS -------- 1. This was a technically adequate study. 2. The left ventricular size is normal. 3. There is mild concentric left ventricular hypertrophy. 4. Overall left ventricular systolic function is low-normal with, an EF between 50 - 55 %. 5. The right ventricle is normal in size. 6. The left atrial size is normal. 7. The right atrial size is normal. 8. There is mild aortic regurgitation. 9. The mitral valve leaflets are mildly thickened. 10. Mild mitral annular calcification present. 11. Mild mitral regurgitation is present. 12. AML is redundant , advised LA to better visualise MV 13. Mild tricuspid regurgitation present. 14. There is no evidence of pulmonary hypertension. 15. The right ventricular systolic pressure, as measured by Doppler, is {RVSP}. 16. There is no pulmonic regurgitation present. 17. The aortic root size is normal. 18. There is no pericardial effusion. STEAM TUNNEL FEEDER: Namrata Schroeder RDCS
[2019-02-18 14:32] LABS: Glucose,Whole Blood 262 mg/dL (75-99)
[2019-02-18 15:22] LABS: Glucose,Whole Blood 255 mg/dL (75-99)
[2019-02-18] MEDS ORDERED: DIALYSIS (PERIT 1.5%) 2,500 ML 37.5 G/2,500 ML BAG INTRAPERIT SCH (16:00)
[2019-02-18 16:24] LABS: Glucose,Whole Blood 175 mg/dL (75-99)
[2019-02-18] MEDS: DIALYSIS (PERIT 1.5%) 2,500 ML 30 G/2,000 ML BAG INTRAPERIT SCH (16:43)
[2019-02-18 17:17] LABS: Glucose,Whole Blood 212 mg/dL (75-99)
[2019-02-18 18:23] LABS: Glucose,Whole Blood 202 mg/dL (75-99)
[2019-02-18 18:50] LABS: Magnesium 1.8 mg/dL (1.6-2.3); Phosphorus 2.9 mg/dL (2.5-4.5); Potassium 3.3 mmol/L (3.5-5.1)
[2019-02-18] MEDS ORDERED: POTASSIUM BICARBONATE/CIT AC 20 MEQ TABLET.EFF PO ONE (19:08)
[2019-02-18] MEDS: MAGNESIUM SULFATE-D5W PMX 1 GM in DEXTROSE/WATER 1 100ML.BAG IVPB SCH ×2 (19:21→21:19)
[2019-02-18 19:23] LABS: Glucose,Whole Blood 203 mg/dL (75-99)
[2019-02-18] MEDS: [UNRECOGNIZED DRUG - OTHER] IV SCH ×3 (20:20)
[2019-02-18] MEDS: SODIUM CHLORIDE 0.45% IV SCH ×3 (20:20)
[2019-02-18] MEDS: SODIUM BICARB IV SCH ×3 (20:20)
[2019-02-18 20:22] LABS: Glucose,Whole Blood 227 mg/dL (75-99)
[2019-02-18] MEDS: ATORVASTATIN 20 MG TAB PO SCH (21:19)
[2019-02-18 21:21] LABS: Glucose,Whole Blood 173 mg/dL (75-99)
--- NOTE | 2019-02-18 22:41 | PN ---
PROGRESS NOTE DATE OF SERVICE: 02/18/2019 PRESENTING COMPLAINT: Intubated. INTERVAL HISTORY: This patient was admitted, found to have several problems, severe ulceration of the duodenum and stomach, lung mass, hypotension. The patient is on peritoneal dialysis. The patient was moved to the ICU on 02/15/2019 and intubated. Currently FiO2 is 40 and a PEEP of 5. Drips include Levophed, propofol, insulin started today, which was started today. Telemetry shows sinus rhythm with frequent premature beats. Tube feeding is running at 17 mL/hour. Patient is getting peritoneal dialysis every 6 hours. REVIEW OF SYSTEMS: Patient is intubated. CURRENT MEDICATIONS: Reviewed. They include Levophed, propofol, insulin. PHYSICAL EXAMINATION: Afebrile. Pulse 104, respiration 24, blood pressure 102/34, pulse ox 96% on ventilator. GENERAL APPEARANCE: Lying in bed. Intubated. EYES: Pupils equal. Conjunctivae normal. HEENT: External appearance of nose and ears normal. Oral cavity with endotracheal tube. NECK: JVD unable to assess. Mass not palpable. RESPIRATORY: Effort increased. LUNGS: Decreased breath sounds. CARDIOVASCULAR: First and second sounds normal. No edema. ABDOMEN: PD dialysis catheter in place. NEUROLOGICAL: Pupils equal. No facial asymmetry. INVESTIGATIONS: Sodium 130, potassium 3.4. Phosphorus 2.9, magnesium 1.8. ASSESSMENT: 1. Acute hypoxic respiratory failure secondary to pneumonia. 2. Acute bilateral pneumonia from Pseudomonas aeruginosa and Staphylococcus aureus. 3. Acute hypoxic respiratory failure requiring ventilator support. 4. Right lung mass with right pleural effusion; malignancy highly possible. 5. End-stage kidney disease, on peritoneal dialysis. 6. Diabetic peripheral neuropathy. 7. Hyperlipidemia. 8. Hypotensive shock, multifactorial, including septic shock. 9. Severe peptic ulcer disease with gastric ulcer, duodenal ulcer, duodenitis, gastritis, severe esophagitis. 10.Acute severe chronic obstructive pulmonary disease exacerbation in a smoker. PLAN: Continue with bronchodilators, current medication and treatment plan. Patient remains on IV Levophed, propofol. Prognosis remains poor. Peritoneal dialysis to continue. MMODL / IJN: [id number] /
[2019-02-18 22:50] LABS: Glucose,Whole Blood 152 mg/dL (75-99)
[2019-02-18 23:45] LABS: Glucose,Whole Blood 79 mg/dL (75-99)
[2019-02-19] MEDS: DIALYSIS (PERIT 1.5%) 2,500 ML 30 G/2,000 ML BAG INTRAPERIT SCH ×4 (00:06→17:36)
[2019-02-19] MEDS: NOREPINEPHRINE 32 MG in SODIUM CHLORIDE 0.9% 218 ML IV SCH ×2 (00:07→21:01)
[2019-02-19] MEDS: metroNIDAZOLE-NS PMX 500 MG in SALINE 1 100ML.BAG IVPB SCH ×3 (00:07→16:25)
[2019-02-19 00:27] LABS: Glucose,Whole Blood 117 mg/dL (75-99)
[2019-02-19 01:33] LABS: Glucose,Whole Blood 109 mg/dL (75-99)
[2019-02-19 02:32] LABS: Glucose,Whole Blood 118 mg/dL (75-99)
[2019-02-19 03:21] LABS: Glucose,Whole Blood 125 mg/dL (75-99)
[2019-02-19] MEDS: IPRATROPIUM-ALBUTEROL 3 ML NEB INHALATION SCH ×6 (03:26→23:26)
[2019-02-19 04:23] LABS: Glucose,Whole Blood 109 mg/dL (75-99)
[2019-02-19 05:30] LABS: Glucose,Whole Blood 104 mg/dL (75-99)
[2019-02-19 05:47] LABS: Anisocytosis Slight; HCT 38.7 % (34.0-46.0); Hypochromasia Marked; MCH 27.9 pg (25.0-35.0); MCV 89.9 fL (80.0-100.0); Mean Platelet Volume 8.6; Platelet Count 82 k/uL (150-450); Poikilocytosis Slight; RDW 16.4 % (11.5-15.5); WBC 31.6 k/uL (3.8-10.6)
[2019-02-19 05:52] LABS: Calcium 7.7 mg/dL (8.4-10.2); Magnesium 2.4 mg/dL (1.6-2.3); Potassium 4.4 mmol/L (3.5-5.1)
[2019-02-19 05:57] LABS: Vancomycin,Random 13.6 ug/mL
[2019-02-19 06:34] LABS: Glucose,Whole Blood 82 mg/dL (75-99)
[2019-02-19 06:37] LABS: Band Neutrophils % 4 %; Large Platelets Present; Neutrophils % (M) 84 %; Nucleated Red Blood Cells 0 /100 WBC (0-0); Total Cells Counted 100
[2019-02-19 07:10] LABS: ABG Base Excess -9.6 mmol/L; ABG HCO3 17 mmol/L (21-25); ABG Oxygen Saturation 91.1 % (94-97); ABG PCO2 37 mmHg (35-45); ABG PH 7.28 (7.35-7.45); ABG PO2 63 mmHg (83-108); ABG TCO2 18 mmol/L (19-24)
--- NOTE | 2019-02-19 08:25 | XR ---
EXAMINATION TYPE: XR chest 1V portable DATE OF EXAM: 02/19/2019 COMPARISON: 02/18/2019 HISTORY: Tube placement TECHNIQUE: Single frontal view of the chest is obtained. FINDINGS: Bilateral consolidation and pleural effusion. Diffuse interstitial pattern. ET and NG tube stable. Diffuse osteopenia. Biapical pleural thickening. IMPRESSION: Bilateral infiltrate and pleural effusion stable. Correlate for pneumonia versus CHF.
[2019-02-19] MEDS: CALCIUM CARBONATE LIQUID 500 MG/5 ML CUP PO SCH ×2 (08:30→16:25)
[2019-02-19] MEDS: SUCRALFATE 1 GM TAB PO SCH ×2 (08:30→16:25)
[2019-02-19] MEDS: CEFEPIME 1 GM in SODIUM CHLORIDE 0.9% 50 ML IVPB SCH (08:34)
[2019-02-19] MEDS: SODIUM BICARB IV SCH ×3 (08:42)
[2019-02-19] MEDS: [UNRECOGNIZED DRUG - OTHER] IV SCH ×3 (08:42)
[2019-02-19] MEDS: SODIUM CHLORIDE 0.45% IV SCH ×3 (08:42)
[2019-02-19] MEDS ORDERED: VANCOMYCIN 1,250 MG in SODIUM CHLORIDE 0.9% 250 ML IVPB ONE (09:00)
[2019-02-19 09:29] LABS: Glucose,Whole Blood 111 mg/dL (75-99)
[2019-02-19] MEDS ORDERED: SODIUM CHLORIDE 0.45% IV SCH ×6 (09:45→18:15)
[2019-02-19] MEDS ORDERED: SODIUM BICARB IV SCH ×6 (09:45→18:15)
[2019-02-19] MEDS ORDERED: [UNRECOGNIZED DRUG - OTHER] IV SCH ×3 (09:45)
[2019-02-19] MEDS ORDERED: SODIUM BICARB 8.4% 50 ML SYR (1 MEQ/ML) IV STA ×2 (09:46→18:04)
--- NOTE | 2019-02-19 10:08 | P.PN ---
Subjective Patient is seen in follow-up for end-stage renal disease. She is maintained on peritoneal dialysis. She is maintaining a net negative fluid balance with PD exchanges. She is currently intubated and sedated. She's being treated with IV antibiotics for pneumonia. Last night she has significant output from the NG tube. Tube feeding is currently on hold. She still requiring vasopressor support. Vital signs are stable. On vasopressors. General: The patient appeared well nourished and normally developed. Intubated. HEENT: Head exam is unremarkable. Neck is without jugular venous distension. LUNGS: Breath sounds decreased. HEART: Rate and Rhythm are regular. First and second heart sounds normal. No murmurs, rubs or gallops. ABDOMEN: Abdominal exam reveals normal bowel sounds. Non-tender and non- distended. No evidence of peritonitis. EXTREMITITES: No clubbing, cyanosis, or edema. Objective - Vital Signs Vital signs: Vital Signs Temp 97.8 F 02/19/19 08:00 Pulse 106 H 02/19/19 09:00 Resp 29 H 02/19/19 09:00 BP 102/34 02/18/19 20:00 Pulse Ox 92 L 02/19/19 09:00 Intake & Output 02/18/19 02/19/19 02/19/19 18:59 06:59 18:59 Intake Total 5080.364 0002.553 350 Output Total 1950 Balance 1953.840 -50.447 350 Weight 73.4 kg Intake: IV 1418 1589 300 Dextrose 5% in Water 1, 1200 200 000 ml @ 100 mls/hr IV . [id number] DANIS[facility] with Sodium Bicarb (1 Meq/ml) 150 ml Rx#:[id number] Magnesium Sulfate-D5w Pmx 100 1 gm In Dextrose/Water 1 100ml.bag @ 100 mls/hr IVPB Q1H [facility] Rx#: [id number] Sodium Chloride 0.45% 1, 1150 200 000 ml @ 100 mls/hr IV . [id number] DANISHA with Sodium Bicarb (1 Meq/ml) 150 ml with Potassium Chloride 40 meq Rx#:[id number] art line pressure bag 18 39 metroNIDAZOLE-NS PMX 500 200 100 100 mg In Saline 1 100ml.bag @ 100 mls/hr IVPB Q8HR [facility] Rx#:[id number] Intake, IV Titration 271.840 198.553 50 Amount Calcium Gluconate 1 gm In 100 Sodium Chloride 0.9% 100 ml @ 100 mls/hr IVPB ONCE ONE Rx#:[id number] Cefepime 1 gm In Sodium 50 Chloride 0.9% 50 ml @ 100 mls/hr IVPB Q48H [facility] Rx# :[id number] Insulin Regular 100 unit 57.411 44.304 In Sodium Chloride 0.9% 100 ml @ Per Protocol IV .Q0M DANISHA Rx#:[id number] Norepinephrine 32 mg In 25.459 154.249 Sodium Chloride 0.9% 218 ml @ 0.05 MCG/KG/MIN 1. 409 mls/hr IV .Q24H [facility] Rx#:[id number] Propofol 1,000 mg In 88.97 Empty Bag 1 bag @ Titrate IV .Q0M [facility] Rx#: [id number] Tube Feeding 204 82 Other 60 30 Output: Gastric Drainage 1150 Urine 0 Other 800 Other: Voiding Method CAPD CAPD # Voids 0 ABP, PAP, CO, CI - Last Documented Arterial Blood Pressure 110/51 - Labs CBC & Chem 7: 02/19/19 05:20 02/19/19 05:20 Labs: Abnormal Lab Results - Last 24 Hours (Table) 02/16/19 02/18/19 02/18/19 Range/Units 20:43 10:29 11:18 WBC (3.8-10.6) k/uL RDW (11.5-15.5) % Plt Count (150-450) k/uL Neutrophils # (Manual) (1.3-7.7) k/uL Monocytes # (Manual) (0-1.0) k/uL ABG pH (7.35-7.45) ABG pO2 (83-108) mmHg ABG HCO3 (21-25) mmol/L ABG Total CO2 (19-24) mmol/L ABG O2 Saturation (94-97) % Sodium (137-145) mmol/L Potassium (3.5-5.1) mmol/L Chloride (98-107) mmol/L Carbon Dioxide (22-30) mmol/L BUN (7-17) mg/dL Creatinine (0.52-1.04) mg/dL Glucose (74-99) mg/dL POC Glucose (mg/dL) 338 H 282 H (75-99) mg/dL Calcium (8.4-10.2) mg/dL Magnesium (1.6-2.3) mg/dL Ammonia (<30) umol/L Procalcitonin 47.07 H (0.02-0.09) ng/mL 02/18/19 02/18/19 02/18/19 Range/Units 11:51 13:05 14:20 WBC (3.8-10.6) k/uL RDW (11.5-15.5) % Plt Count (150-450) k/uL Neutrophils # (Manual) (1.3-7.7) k/uL Monocytes # (Manual) (0-1.0) k/uL ABG pH (7.35-7.45) ABG pO2 (83-108) mmHg ABG HCO3 (21-25) mmol/L ABG Total CO2 (19-24) mmol/L ABG O2 Saturation (94-97) % Sodium (137-145) mmol/L Potassium (3.5-5.1) mmol/L Chloride (98-107) mmol/L Carbon Dioxide (22-30) mmol/L BUN (7-17) mg/dL Creatinine (0.52-1.04) mg/dL Glucose (74-99) mg/dL POC Glucose (mg/dL) 232 H 242 H 262 H (75-99) mg/dL Calcium (8.4-10.2) mg/dL Magnesium (1.6-2.3) mg/dL Ammonia (<30) umol/L Procalcitonin (0.02-0.09) ng/mL 02/18/19 02/18/19 02/18/19 Range/Units 15:11 16:12 17:05 WBC (3.8-10.6) k/uL RDW (11.5-15.5) % Plt Count (150-450) k/uL Neutrophils # (Manual) (1.3-7.7) k/uL Monocytes # (Manual) (0-1.0) k/uL ABG pH (7.35-7.45) ABG pO2 (83-108) mmHg ABG HCO3 (21-25) mmol/L ABG Total CO2 (19-24) mmol/L ABG O2 Saturation (94-97) % Sodium (137-145) mmol/L Potassium (3.5-5.1) mmol/L Chloride (98-107) mmol/L Carbon Dioxide (22-30) mmol/L BUN (7-17) mg/dL Creatinine (0.52-1.04) mg/dL Glucose (74-99) mg/dL POC Glucose (mg/dL) 255 H 175 H 212 H (75-99) mg/dL Calcium (8.4-10.2) mg/dL Magnesium (1.6-2.3) mg/dL Ammonia (<30) umol/L Procalcitonin (0.02-0.09) ng/mL 02/18/19 02/18/19 02/18/19 Range/Units 18:09 18:11 19:11 WBC (3.8-10.6) k/uL RDW (11.5-15.5) % Plt Count (150-450) k/uL Neutrophils # (Manual) (1.3-7.7) k/uL Monocytes # (Manual) (0-1.0) k/uL ABG pH (7.35-7.45) ABG pO2 (83-108) mmHg ABG HCO3 (21-25) mmol/L ABG Total CO2 (19-24) mmol/L ABG O2 Saturation (94-97) % Sodium 128 L (137-145) mmol/L Potassium 3.3 L (3.5-5.1) mmol/L Chloride (98-107) mmol/L Carbon Dioxide 18 L (22-30) mmol/L BUN (7-17) mg/dL Creatinine (0.52-1.04) mg/dL Glucose (74-99) mg/dL POC Glucose (mg/dL) 202 H 203 H (75-99) mg/dL Calcium (8.4-10.2) mg/dL Magnesium (1.6-2.3) mg/dL Ammonia (<30) umol/L Procalcitonin (0.02-0.09) ng/mL 02/18/19 02/18/19 02/18/19 Range/Units 20:11 21:10 22:39 WBC (3.8-10.6) k/uL RDW (11.5-15.5) % Plt Count (150-450) k/uL Neutrophils # (Manual) (1.3-7.7) k/uL Monocytes # (Manual) (0-1.0) k/uL ABG pH (7.35-7.45) ABG pO2 (83-108) mmHg ABG HCO3 (21-25) mmol/L ABG Total CO2 (19-24) mmol/L ABG O2 Saturation (94-97) % Sodium (137-145) mmol/L Potassium (3.5-5.1) mmol/L Chloride (98-107) mmol/L Carbon Dioxide (22-30) mmol/L BUN (7-17) mg/dL Creatinine (0.52-1.04) mg/dL Glucose (74-99) mg/dL POC Glucose (mg/dL) 227 H 173 H 152 H (75-99) mg/dL Calcium (8.4-10.2) mg/dL Magnesium (1.6-2.3) mg/dL Ammonia (<30) umol/L Procalcitonin (0.02-0.09) ng/mL 02/19/19 02/19/19 02/19/19 Range/Units 00:15 01:22 02:20 WBC (3.8-10.6) k/uL RDW (11.5-15.5) % Plt Count (150-450) k/uL Neutrophils # (Manual) (1.3-7.7) k/uL Monocytes # (Manual) (0-1.0) k/uL ABG pH (7.35-7.45) ABG pO2 (83-108) mmHg ABG HCO3 (21-25) mmol/L ABG Total CO2 (19-24) mmol/L ABG O2 Saturation (94-97) % Sodium (137-145) mmol/L Potassium (3.5-5.1) mmol/L Chloride (98-107) mmol/L Carbon Dioxide (22-30) mmol/L BUN (7-17) mg/dL Creatinine (0.52-1.04) mg/dL Glucose (74-99) mg/dL POC Glucose (mg/dL) 117 H 109 H 118 H (75-99) mg/dL Calcium (8.4-10.2) mg/dL Magnesium (1.6-2.3) mg/dL Ammonia (<30) umol/L Procalcitonin (0.02-0.09) ng/mL 02/19/19 02/19/19 02/19/19 Range/Units 03:10 04:12 05:18 WBC (3.8-10.6) k/uL RDW (11.5-15.5) % Plt Count (150-450) k/uL Neutrophils # (Manual) (1.3-7.7) k/uL Monocytes # (Manual) (0-1.0) k/uL ABG pH (7.35-7.45) ABG pO2 (83-108) mmHg ABG HCO3 (21-25) mmol/L ABG Total CO2 (19-24) mmol/L ABG O2 Saturation (94-97) % Sodium (137-145) mmol/L Potassium (3.5-5.1) mmol/L Chloride (98-107) mmol/L Carbon Dioxide (22-30) mmol/L BUN (7-17) mg/dL Creatinine (0.52-1.04) mg/dL Glucose (74-99) mg/dL POC Glucose (mg/dL) 125 H 109 H 104 H (75-99) mg/dL Calcium (8.4-10.2) mg/dL Magnesium (1.6-2.3) mg/dL Ammonia (<30) umol/L Procalcitonin (0.02-0.09) ng/mL 02/19/19 02/19/19 02/19/19 Range/Units 05:20 05:20 05:20 WBC 31.6 H (3.8-10.6) k/uL RDW 16.4 H (11.5-15.5) % Plt Count 82 L (150-450) k/uL Neutrophils # (Manual) 27.80 H (1.3-7.7) k/uL Monocytes # (Manual) 1.90 H (0-1.0) k/uL ABG pH (7.35-7.45) ABG pO2 (83-108) mmHg ABG HCO3 (21-25) mmol/L ABG Total CO2 (19-24) mmol/L ABG O2 Saturation (94-97) % Sodium 128 L (137-145) mmol/L Potassium (3.5-5.1) mmol/L Chloride 97 L (98-107) mmol/L Carbon Dioxide 17 L (22-30) mmol/L BUN 25 H (7-17) mg/dL Creatinine 3.47 H (0.52-1.04) mg/dL Glucose 104 H (74-99) mg/dL POC Glucose (mg/dL) (75-99) mg/dL Calcium 7.7 L (8.4-10.2) mg/dL Magnesium 2.4 H (1.6-2.3) mg/dL Ammonia 66 H (<30) umol/L Procalcitonin (0.02-0.09) ng/mL 02/19/19 02/19/19 Range/Units 07:05 09:17 WBC (3.8-10.6) k/uL RDW (11.5-15.5) % Plt Count (150-450) k/uL Neutrophils # (Manual) (1.3-7.7) k/uL Monocytes # (Manual) (0-1.0) k/uL ABG pH 7.28 L (7.35-7.45) ABG pO2 63 L (83-108) mmHg ABG HCO3 17 L (21-25) mmol/L ABG Total CO2 18 L (19-24) mmol/L ABG O2 Saturation 91.1 L (94-97) % Sodium (137-145) mmol/L Potassium (3.5-5.1) mmol/L Chloride (98-107) mmol/L Carbon Dioxide (22-30) mmol/L BUN (7-17) mg/dL Creatinine (0.52-1.04) mg/dL Glucose (74-99) mg/dL POC Glucose (mg/dL) 111 H (75-99) mg/dL Calcium (8.4-10.2) mg/dL Magnesium (1.6-2.3) mg/dL Ammonia (<30) umol/L Procalcitonin (0.02-0.09) ng/mL Microbiology - Last 24 Hours (Table) 02/16/19 09:50 Gram Stain - Final Sputum Sputum Culture - Final Staphylococcus aureus Pseudomonas aeruginosa Serratia plymuthica 02/15/19 15:00 Blood Culture - Preliminary Blood No Growth after 72 hours 02/14/19 06:00 Gram Stain - Final Peritoneal Fluid Body Fluid Culture - Final 02/13/19 00:00 Anaerobic Culture - Final Catheter Site Assessment and Plan Plan: Assessment: 1. End-stage renal disease maintained on peritoneal dialysis. 2. Pneumonia with sputum culture positive for staph aureus, Pseudomonas aeruginosa and Serratia maintained on IV antibiotics. 3. Septic shock secondary to pneumonia. Currently on Levophed. 4. Hyponatremia secondary to chronic kidney disease. 5. Metabolic acidosis secondary to chronic kidney disease. Plan: I will change IV fluids to half-normal saline with 75 mEq of bicarbonate as this would be an isotonic solution and not hypertonic. 2 A of bicarb IV push. Discussed with program aide. Propofol and sedation will be discontinued. Prognosis guarded.
--- NOTE | 2019-02-19 10:52 | CT ---
EXAMINATION TYPE: CT brain wo con DATE OF EXAM: 02/19/2019 COMPARISON: 02/15/2019 HISTORY: Unresponsive CT DLP: 1074.4 mGycm Automated exposure control for dose reduction was used. FINDINGS: No midline shift or mass effect. Calvarium intact. No acute hemorrhage. Minimal nonspecific white matter changes are stable from the prior exam. Intracr anial atherosclerotic changes stable. Changes of chronic mastoiditis noted bilaterally. Changes of chronic sinusitis noted. Hypodensity wit hin the head of the caudate nucleus on the left is stable consider previous lacunar infarct. IMPRESSION: NO ACUTE HEMORRHAGE OR MASS EFFECT. PREVIOUSLY NOTED AND NONSPECIFIC WHITE MATTER CHANGES ARE STABLE. IF THERE IS CONCERN FOR ACUTE ISCHEMIA CORRELATE WITH MRI CLINICALLY WARRANTED. BILATERAL MASTOIDITIS AND SINUSITIS.
[2019-02-19] MEDS: NICOTINE 21MG/24HR PATCH TRANSDERM SCH (11:02)
[2019-02-19] MEDS: MIDODRINE 5 MG TAB PO SCH ×3 (11:02→16:25)
[2019-02-19] MEDS: CHLORHEXIDINE GLUCONATE 15 ML CUP MUCOUS MEM SCH ×2 (11:07→20:32)
[2019-02-19] MEDS: PANTOPRAZOLE 40 MG/10 ML VIAL IVP SCH ×2 (11:07→20:32)
[2019-02-19] MEDS: LACTULOSE 20 GM/30 ML CUP PO SCH ×3 (11:07→21:00)
[2019-02-19 11:24] VITALS: BMI 29.5
--- NOTE | 2019-02-19 11:25 | P.PN ---
Subjective Progress Note Date: 02/19/19 Principal diagnosis: Acute hypoxic respiratory failure, pneumonia, and septic shock. This is a 63-year-old female patient with known history of COPD, diabetes mellitus, hypertension hyperlipidemia and she has also dialysis-dependent renal failure and the patient is undergoing peritoneal dialysis. The patient came into the hospital feeling weak, dizzy and lightheaded. She stated that she was hardly able to walk. She hasn't been eating or drinking for several days. She stated that she had only 2 bottles of water over the past few days. No nausea. No vomiting. No diarrhea. No altered mentation. She had been undergoing Peritoneal dialysis. No fever. No chills. The patient had a chest x-ray in the emergency department that showed right basilar opacity/mass/atelectasis with effusion. This was followed up by CAT scan of the chest that showed a moderate- sized right-sided pleural effusion in addition to masslike consolidation in the right lower lobe and the right upper lobe. There was also enlarged right paratracheal lymph nodes measuring 18 x 12 mm in size and anterior mediastinal lymph node measuring 1.5 cm. There is a questionable right hilar mass in addition. This CAT scan was done without contrast. Another masslike consolidation is present in the right upper lobe lateral chest area measuring 6 x 2.5 cm in size. No focal bony destruction. The patient during this current hospital stay. Large-volume coffee-ground emesis 5. For that reason the patient was seen by gastroenterology and the patient is going to undergo an EGD today. Upon further questioning, the patient is a chronic smoker. She has recently seen Dr. Williamson regarding possibility of lung cancer. No further recommendations are made by her pathology technologist in that regard. On 02/15/2019 patient seen in follow-up on medical surgical floor. The rapid response team was called in regards to patient's hypotension today. The blood pressure dropped down as low as 57/35, and has been noted to be more lethargic. Afebrile, she is on room air, maintaining good oxygenation, patient had her peritoneal dialysis exchange this morning, and she had 200 mL of fluid removed with peritoneal dialysis this morning. She was started on oral Midrin, she is receiving IV normal saline at a rate of 100 ML per hour, and we'll give the patient 250 mL of 5% albumin. She has had no further vomiting or diarrhea, no hematemesis, no melena. Today's hemoglobin is 11.3, with blood cell count is 7 .5, sodium is 135, potassium 3.2, CO2 is 19, BUN is 39, creatinine is 6.15, peritoneal fluid cultures have shown no growth so far. Patient's lung sounds are diminished, with the bibasilar crackles. She is arousable to verbal stimuli, but drowsy. Denies any chest pain. On 02/18/2019, patient was seen on follow-up for her acute septic shock pneumonia and acute hypoxic respiratory failure. Remains on mechanical ventilation, presently her ventilator settings are assist control rate of 16 tidal volume of 400 FiO2 of 40% PEEP of 5. ABG showed a pO2 of 82 pCO2 of 42 pH of 7.25, patient remains on bicarb drip. Her peak airway pressure is 34 plateau pressure is 28. Remains on propofol at 35 mcg/kg/m, norepinephrine at 16 mcg/m, and on bicarb drip., Insulin will be started today for elevated blood sugars. Chest x-ray continues to show evidence of bilateral consolidations and pleural effus ions, diffuse airspace disease with a combination of congestive heart failure/pulmonary edema and pneumonia is strongly suspected. Remains on peritoneal dialysis, remains on broad-spectrum antibiotics, and her sputum seems to be positive for staph aureus, and pseudomonas so far. Both are being covered empirically at this point. CBC showed leukocytosis with WBC count of 37.4 hemoglobin is 11.6. Platelets are 77,000. Electrolytes were reviewed low- sodium, low potassium, bicarb remains low at 17 BUN is 29 creatinine 4.01. Ammonia level is 54 today. Hence lactulose will be started for elevated ammonia level. On 02/19/2019, patient was seen on follow-up in the intensive care unit, remains on mechanical ventilation, and her ventilator settings are tidal volume of 400, assist control rate 16 FiO2 is up to 45% from 40% and PEEP at 5. Peak airway pressure is 33 plateau pressure is 27. ABG on 40% showed a pO2 of 63 pCO2 of 37 pH of 7.28 continues to have leukocytosis with WBC count of 51.6 hemoglobin is 12 she has low sodium of 128, metabolic acidosis, and BUN of 25 creatinine of 3.47. Remains on peritoneal dialysis, hemodialysis is being considered, however were not certain if we can start using her left arm fistula. Sputum is positive for Pseudomonas, and staph aureus and Serratia remains on broad-spectrum antibiotics. Remains on multiple drips including norepinephrine at 0.3 mcg/kg/m, bicarb drip, propofol at 10 mcg/kg/m. Patient is unresponsive to any stimuli, hence recommended repeat CT of the brain without contrast. And recommended that we stop propofol completely until we could assess mental status again. Objective - Vital Signs Vital signs: Vital Signs Temp 97.8 F 02/19/19 08:00 Pulse 106 H 02/19/19 09:00 Resp 29 H 02/19/19 09:00 BP 102/34 02/18/19 20:00 Pulse Ox 92 L 02/19/19 09:00 Intake & Output 02/18/19 02/19/19 02/19/19 18:59 06:59 18:59 Intake Total 6589.762 4437.553 350 Output Total 1950 Balance 1953.840 -50.447 350 Weight 73.4 kg Intake: IV 1418 1589 300 Dextrose 5% in Water 1, 1200 200 000 ml @ 100 mls/hr IV . [id number] DANISHA with Sodium Bicarb (1 Meq/ml) 150 ml Rx#:[id number] Magnesium Sulfate-D5w Pmx 100 1 gm In Dextrose/Water 1 100ml.bag @ 100 mls/hr IVPB Q1H [facility] Rx#: [id number] Sodium Chloride 0.45% 1, 1150 200 000 ml @ 100 mls/hr IV . [id number] DANISHA with Sodium Bicarb (1 Meq/ml) 150 ml with Potassium Chloride 40 meq Rx#:[id number] art line pressure bag 18 39 metroNIDAZOLE-NS PMX 500 200 100 100 mg In Saline 1 100ml.bag @ 100 mls/hr IVPB Q8HR [facility] Rx#:[id number] Intake, IV Titration 271.840 198.553 50 Amount Calcium Gluconate 1 gm In 100 Sodium Chloride 0.9% 100 ml @ 100 mls/hr IVPB ONCE ONE Rx#:[id number] Cefepime 1 gm In Sodium 50 Chloride 0.9% 50 ml @ 100 mls/hr IVPB Q48H [facility] Rx# :[id number] Insulin Regular 100 unit 57.411 44.304 In Sodium Chloride 0.9% 100 ml @ Per Protocol IV .Q0M DANISHA Rx#:[id number] Norepinephrine 32 mg In 25.459 154.249 Sodium Chloride 0.9% 218 ml @ 0.05 MCG/KG/MIN 1. 409 mls/hr IV .Q24H [facility] Rx#:[id number] Propofol 1,000 mg In 88.97 Empty Bag 1 bag @ Titrate IV .Q0M DANISHA Rx#: [id number] Tube Feeding 204 82 Other 60 30 Output: Gastric Drainage 1150 Urine 0 Other 800 Other: Voiding Method CAPD CAPD # Voids 0 ABP, PAP, CO, CI - Last Documented Arterial Blood Pressure 110/51 - Exam Physical Exam: Revealed a 63-year-old female, sedated, on propofol, on mechanical ventilation, in no distress. Unresponsive to deep painful stimuli. Head: Atraumatic, normocephalic. HEENT:[Neck is supple.] [No neck masses.] [No thyromegaly.] [No JVD.]. The right pupil is larger than the left pupil, nonreactive to light. EOMI, no icterus. Mucous membranes are moist. Endotracheal tube and orogastric tube are intact. Chest: Diminished breath sounds at the bases, crackles and rhonchi noted at the bases bilaterally. Symmetrical chest expansion noted. No chest wall deformity. Cardiac Exam: [Normal S1 and S2, no S3 gallop, no murmur.] Abdomen: [Soft, nontender, no megaly, no rebound, no guarding, normal bowel sounds.] Extremities: [No clubbing, 1+ bipedal edema, no cyanosis.] Patient has a right femoral triple-lumen catheter. There is 1+ bipedal edema, and an old AV fistula noted in the left arm. Supposedly functional. Neurological Exam: Cannot be assessed, patient is fully sedated on propofol drip. There is however right pupil seems to be larger than the left pupil. Patient is unresponsive to deep painful stimuli in spite of a low dose of propofol. Psychiatric could not be assessed, patient is sedated on propofol drip. Skin: No rashes. Lymphatics: No lymphadenopathy. - Labs CBC & Chem 7: 02/19/19 05:20 02/19/19 05:20 Labs: Abnormal Lab Results - Last 24 Hours (Table) 02/18/19 02/18/19 02/18/19 Range/Units 11:18 11:51 13:05 WBC (3.8-10.6) k/uL RDW (11.5-15.5) % Plt Count (150-450) k/uL Neutrophils # (Manual) (1.3-7.7) k/uL Monocytes # (Manual) (0-1.0) k/uL ABG pH (7.35-7.45) ABG pO2 (83-108) mmHg ABG HCO3 (21-25) mmol/L ABG Total CO2 (19-24) mmol/L ABG O2 Saturation (94-97) % Sodium (137-145) mmol/L Potassium (3.5-5.1) mmol/L Chloride (98-107) mmol/L Carbon Dioxide (22-30) mmol/L BUN (7-17) mg/dL Creatinine (0.52-1.04) mg/dL Glucose (74-99) mg/dL POC Glucose (mg/dL) 282 H 232 H 242 H (75-99) mg/dL Calcium (8.4-10.2) mg/dL Magnesium (1.6-2.3) mg/dL Ammonia (<30) umol/L 02/18/19 02/18/19 02/18/19 Range/Units 14:20 15:11 16:12 WBC (3.8-10.6) k/uL RDW (11.5-15.5) % Plt Count (150-450) k/uL Neutrophils # (Manual) (1.3-7.7) k/uL Monocytes # (Manual) (0-1.0) k/uL ABG pH (7.35-7.45) ABG pO2 (83-108) mmHg ABG HCO3 (21-25) mmol/L ABG Total CO2 (19-24) mmol/L ABG O2 Saturation (94-97) % Sodium (137-145) mmol/L Potassium (3.5-5.1) mmol/L Chloride (98-107) mmol/L Carbon Dioxide (22-30) mmol/L BUN (7-17) mg/dL Creatinine (0.52-1.04) mg/dL Glucose (74-99) mg/dL POC Glucose (mg/dL) 262 H 255 H 175 H (75-99) mg/dL Calcium (8.4-10.2) mg/dL Magnesium (1.6-2.3) mg/dL Ammonia (<30) umol/L 02/18/19 02/18/19 02/18/19 Range/Units 17:05 18:09 18:11 WBC (3.8-10.6) k/uL RDW (11.5-15.5) % Plt Count (150-450) k/uL Neutrophils # (Manual) (1.3-7.7) k/uL Monocytes # (Manual) (0-1.0) k/uL ABG pH (7.35-7.45) ABG pO2 (83-108) mmHg ABG HCO3 (21-25) mmol/L ABG Total CO2 (19-24) mmol/L ABG O2 Saturation (94-97) % Sodium 128 L (137-145) mmol/L Potassium 3.3 L (3.5-5.1) mmol/L Chloride (98-107) mmol/L Carbon Dioxide 18 L (22-30) mmol/L BUN (7-17) mg/dL Creatinine (0.52-1.04) mg/dL Glucose (74-99) mg/dL POC Glucose (mg/dL) 212 H 202 H (75-99) mg/dL Calcium (8.4-10.2) mg/dL Magnesium (1.6-2.3) mg/dL Ammonia (<30) umol/L 02/18/19 02/18/19 02/18/19 Range/Units 19:11 20:11 21:10 WBC (3.8-10.6) k/uL RDW (11.5-15.5) % Plt Count (150-450) k/uL Neutrophils # (Manual) (1.3-7.7) k/uL Monocytes # (Manual) (0-1.0) k/uL ABG pH (7.35-7.45) ABG pO2 (83-108) mmHg ABG HCO3 (21-25) mmol/L ABG Total CO2 (19-24) mmol/L ABG O2 Saturation (94-97) % Sodium (137-145) mmol/L Potassium (3.5-5.1) mmol/L Chloride (98-107) mmol/L Carbon Dioxide (22-30) mmol/L BUN (7-17) mg/dL Creatinine (0.52-1.04) mg/dL Glucose (74-99) mg/dL POC Glucose (mg/dL) 203 H 227 H 173 H (75-99) mg/dL Calcium (8.4-10.2) mg/dL Magnesium (1.6-2.3) mg/dL Ammonia (<30) umol/L 02/18/19 02/19/19 02/19/19 Range/Units 22:39 00:15 01:22 WBC (3.8-10.6) k/uL RDW (11.5-15.5) % Plt Count (150-450) k/uL Neutrophils # (Manual) (1.3-7.7) k/uL Monocytes # (Manual) (0-1.0) k/uL ABG pH (7.35-7.45) ABG pO2 (83-108) mmHg ABG HCO3 (21-25) mmol/L ABG Total CO2 (19-24) mmol/L ABG O2 Saturation (94-97) % Sodium (137-145) mmol/L Potassium (3.5-5.1) mmol/L Chloride (98-107) mmol/L Carbon Dioxide (22-30) mmol/L BUN (7-17) mg/dL Creatinine (0.52-1.04) mg/dL Glucose (74-99) mg/dL POC Glucose (mg/dL) 152 H 117 H 109 H (75-99) mg/dL Calcium (8.4-10.2) mg/dL Magnesium (1.6-2.3) mg/dL Ammonia (<30) umol/L 02/19/19 02/19/19 02/19/19 Range/Units 02:20 03:10 04:12 WBC (3.8-10.6) k/uL RDW (11.5-15.5) % Plt Count (150-450) k/uL Neutrophils # (Manual) (1.3-7.7) k/uL Monocytes # (Manual) (0-1.0) k/uL ABG pH (7.35-7.45) ABG pO2 (83-108) mmHg ABG HCO3 (21-25) mmol/L ABG Total CO2 (19-24) mmol/L ABG O2 Saturation (94-97) % Sodium (137-145) mmol/L Potassium (3.5-5.1) mmol/L Chloride (98-107) mmol/L Carbon Dioxide (22-30) mmol/L BUN (7-17) mg/dL Creatinine (0.52-1.04) mg/dL Glucose (74-99) mg/dL POC Glucose (mg/dL) 118 H 125 H 109 H (75-99) mg/dL Calcium (8.4-10.2) mg/dL Magnesium (1.6-2.3) mg/dL Ammonia (<30) umol/L 02/19/19 02/19/19 02/19/19 Range/Units 05:18 05:20 05:20 WBC 31.6 H (3.8-10.6) k/uL RDW 16.4 H (11.5-15.5) % Plt Count 82 L (150-450) k/uL Neutrophils # (Manual) 27.80 H (1.3-7.7) k/uL Monocytes # (Manual) 1.90 H (0-1.0) k/uL ABG pH (7.35-7.45) ABG pO2 (83-108) mmHg ABG HCO3 (21-25) mmol/L ABG Total CO2 (19-24) mmol/L ABG O2 Saturation (94-97) % Sodium 128 L (137-145) mmol/L Potassium (3.5-5.1) mmol/L Chloride 97 L (98-107) mmol/L Carbon Dioxide 17 L (22-30) mmol/L BUN 25 H (7-17) mg/dL Creatinine 3.47 H (0.52-1.04) mg/dL Glucose 104 H (74-99) mg/dL POC Glucose (mg/dL) 104 H (75-99) mg/dL Calcium 7.7 L (8.4-10.2) mg/dL Magnesium 2.4 H (1.6-2.3) mg/dL Ammonia (<30) umol/L 02/19/19 02/19/19 02/19/19 Range/Units 05:20 07:05 09:17 WBC (3.8-10.6) k/uL RDW (11.5-15.5) % Plt Count (150-450) k/uL Neutrophils # (Manual) (1.3-7.7) k/uL Monocytes # (Manual) (0-1.0) k/uL ABG pH 7.28 L (7.35-7.45) ABG pO2 63 L (83-108) mmHg ABG HCO3 17 L (21-25) mmol/L ABG Total CO2 18 L (19-24) mmol/L ABG O2 Saturation 91.1 L (94-97) % Sodium (137-145) mmol/L Potassium (3.5-5.1) mmol/L Chloride (98-107) mmol/L Carbon Dioxide (22-30) mmol/L BUN (7-17) mg/dL Creatinine (0.52-1.04) mg/dL Glucose (74-99) mg/dL POC Glucose (mg/dL) 111 H (75-99) mg/dL Calcium (8.4-10.2) mg/dL Magnesium (1.6-2.3) mg/dL Ammonia 66 H (<30) umol/L Microbiology - Last 24 Hours (Table) 02/18/19 23:30 Anaerobic Culture - Preliminary Abdomen 02/18/19 23:30 Wound Culture - Preliminary Abdomen 02/16/19 09:50 Gram Stain - Final Sputum Sputum Culture - Final Staphylococcus aureus Pseudomonas aeruginosa Serratia plymuthica 02/15/19 15:00 Blood Culture - Preliminary Blood No Growth after 72 hours 02/14/19 06:00 Gram Stain - Final Peritoneal Fluid Body Fluid Culture - Final 02/13/19 00:00 Anaerobic Culture - Final Catheter Site Assessment and Plan Assessment: Impression: 1 acute hypoxic respiratory failure secondary to pneumonia, likely community- acquired, and suspected diastolic congestive heart failure. 2 acute sepsis and septic shock secondary to pneumonia, remains on broad- spectrum antibiotics. 3 suspect erosive gastritis and upper GI bleeding patient remains on Protonix, hemoglobin is stable at 12.0 4 chronic end-stage renal disease on peritoneal dialysis. 5 acute metabolic acidosis secondary to sepsis and underlying chronic kidney disease. 6 COPD, presently inactive 7 type 2 diabetes presently on insulin drip 8 benign essential hypertension 9 leukocytosis secondary to sepsis and septic shock 10 non-anion gap metabolic acidosis 11 mental status change, suspect metabolic encephalopathy or possibly anoxic brain injury. CT of the brain will be re-evaluated. Recommendation: Continue all present supportive care measures including nutritional support, ventilatory support, hemodynamic support, antibiotics, GI and DVT prophylaxis, arrange for CT of the brain to be re-evaluated today. Continue peritoneal dialysis, continue to address her metabolic acidosis and bicarbonate drip, may have to consider transfer if her neurological status does not improve much. We will discontinue propofol today, and keep the patient off sedation and narcotics until her mental status improves. And if that does not improve may have to seriously consider transfer. Patient is critically ill, and critical care time is 35 minutes. Discussed her condition with nephrology on the case. C Time with Patient: Greater than 30
[2019-02-19 13:27] LABS: Glucose,Whole Blood 115 mg/dL (75-99)
[2019-02-19] MEDS: INSULIN ASPART (NovoLOG) 100 UNIT/ML VIAL SQ SCH ×3 (14:00→20:09)
[2019-02-19 16:52] LABS: Glucose,Whole Blood 96 mg/dL (75-99)
[2019-02-19 17:50] LABS: ABG Base Excess -15.1 mmol/L; ABG HCO3 13 mmol/L (21-25); ABG Oxygen Saturation 98.4 % (94-97); ABG PCO2 34 mmHg (35-45); ABG PO2 142 mmHg (83-108); ABG TCO2 14 mmol/L (19-24)
[2019-02-19 17:52] LABS: ABG PH 7.19 (7.35-7.45)
[2019-02-19] MEDS ORDERED: [UNRECOGNIZED DRUG - OTHER] IV SCH ×3 (18:15)
--- NOTE | 2019-02-19 19:57 | PN ---
PROGRESS NOTE DATE OF SERVICE: 02/19/2019 PRESENTING COMPLAINT: Intubated. INTERVAL HISTORY: Patient is admitted, was found to have multiple problems including severe ulceration, duodenum, stomach, lung mass, was hypotensive. The patient is on hemodialysis 4 times a day. The patient has been in ICU since February 15, 2019 and intubated. Currently, FiO2 45% and 5 this morning. Telemetry shows sinus rhythm. Drips include Levophed, propofol, bicarbonate noncommunicative. is at the bedside. Also getting a tube feeding. REVIEW OF SYSTEMS: The patient cannot complete communicate, intubated. MEDICATIONS: Current medications are reviewed and include IV Levophed, propofol, IV cefepime and other antibiotics. PHYSICAL EXAMINATION: VITAL SIGNS: Temperature 98.1, pulse 107, respiration 28, blood pressure 123/42, 45% on FiO2. GENERAL APPEARANCE: Lying in bed, intubated. EYES: Pupils equal. Conjunctivae normal. HEENT: External appearance of nose and ears normal. Oral cavity dry with endotracheal tube. NECK: JVD unable to assess. Mass not palpable. RESPIRATORY: Effort increased. LUNGS: Diminished breath sounds. Occasional crackles. CARDIOVASCULAR: 1st and 2nd sounds normal. No edema. ABDOMEN: Soft, nontender. Liver and spleen not palpable. PD catheter in place. NEUROLOGICAL: Pupils equal. No facial asymmetry. INVESTIGATIONS: Blood gas showed a pH of 7.28, bicarb was 17. POCO2 of 18. White count 31.6, hemoglobin 12, platelets 82. Potassium 4.4, BUN 35, creatinine 3.47. CT scan of the brain did not show any acute changes. ASSESSMENT: 1. Acute hypoxic respiratory failure secondary to pneumonia, slow to respond. 2. Acute bilateral pneumonia from Pseudomonas and Staph aureus. 3. Acute hypoxic respiratory failure requiring ventilator support, slow to respond. 4. Right lung mass with right pleural effusion malignancy highly possible. 5. End-stage kidney disease on peritoneal dialysis. 6. Diabetic peripheral neuropathy. 7. Hyperlipidemia. 8. Hypertensive shock, multifactorial including septic shock requiring pressor support. 9. Severe peptic ulcer disease with gastric ulcer and also duodenitis, gastritis, severe esophagitis. 10.Acute severe chronic obstructive pulmonary disease exacerbation in a current smoker. PLAN: The patient remains critically ill. Continue current medication and treatment plan. Patient is on IV Levophed, propofol, tube feeding. I spoke to the at the bedside. The patient's prognosis remains very guarded. He does understand the same and does understand the patient's quality of life is poor. Prognosis not being good. MMBILLL / IJN: [id number] /
[2019-02-19 20:20] LABS: Glucose,Whole Blood 82 mg/dL (75-99)
[2019-02-19] MEDS: ATORVASTATIN 20 MG TAB PO SCH (20:32)
[2019-02-19 23:29] LABS: Glucose,Whole Blood 56 mg/dL (75-99)
[2019-02-19 23:48] LABS: Glucose,Whole Blood 228 mg/dL (75-99)
[2019-02-19] MEDS ORDERED: DILTIAZEM DRIP BOLUS FROM BAG 1 MG SOLN IV ONE (23:50)
[2019-02-20] MEDS: DILTIAZEM 125 MG in SODIUM CHLORIDE 0.9% 100 ML IV SCH ×2 (00:03→16:31)
[2019-02-20] MEDS: DIALYSIS (PERIT 1.5%) 2,500 ML 30 G/2,000 ML BAG INTRAPERIT SCH ×5 (00:05→23:57)
[2019-02-20 00:17] VITALS: BP 60/26
[2019-02-20] MEDS: INSULIN ASPART (NovoLOG) 100 UNIT/ML VIAL SQ SCH ×6 (00:17→20:00)
[2019-02-20 00:31] LABS: Glucose,Whole Blood 156 mg/dL (75-99)
[2019-02-20] MEDS: metroNIDAZOLE-NS PMX 500 MG in SALINE 1 100ML.BAG IVPB SCH ×3 (01:46→16:30)
[2019-02-20] MEDS: IPRATROPIUM-ALBUTEROL 3 ML NEB INHALATION SCH ×6 (04:02→23:39)
[2019-02-20 04:12] LABS: Glucose,Whole Blood 100 mg/dL (75-99)
[2019-02-20 04:31] LABS: Anisocytosis Slight; HCT 38.2 % (34.0-46.0); HGB 11.4 gm/dL (11.4-16.0); Hypochromasia Marked; MCH 28.1 pg (25.0-35.0); MCV 93.9 fL (80.0-100.0); Mean Platelet Volume 7.9; Poikilocytosis Slight; RBC 4.07 m/uL (3.80-5.40); RDW 16.7 % (11.5-15.5)
[2019-02-20 04:34] LABS: Platelet Count 71 k/uL (150-450)
[2019-02-20 04:39] LABS: Albumin 1.2 g/dL (3.5-5.0); Calcium 7.4 mg/dL (8.4-10.2); Magnesium 2.2 mg/dL (1.6-2.3); Phosphorus 6.5 mg/dL (2.5-4.5); Potassium 5.9 mmol/L (3.5-5.1); Total Bilirubin 1.5 mg/dL (0.2-1.3); Total Protein 3.3 g/dL (6.3-8.2)
[2019-02-20 05:10] LABS: ABG Base Excess -21.1 mmol/L; ABG Oxygen Saturation 98.9 % (94-97); ABG PCO2 41 mmHg (35-45); ABG PO2 233 mmHg (83-108); ABG TCO2 11 mmol/L (19-24)
[2019-02-20 05:12] LABS: ABG HCO3 10 mmol/L (21-25)
[2019-02-20] MEDS ORDERED: SODIUM BICARB 8.4% 50 ML SYR (1 MEQ/ML) IV STA ×3 (05:28→09:24)
[2019-02-20 05:50] LABS: Band Neutrophils % 20 %; Lymphocytes # (M) 4.54 k/uL (1.0-4.8); Metamyelocytes # (M) 0.25 k/uL (0); Metamyelocytes % 1 %; Monocytes # (M) 2.27 k/uL (0-1.0); Myelocytes # (M) 0.25 k/uL (0); Myelocytes % 1 %; Neutrophils % (M) 53 %; Nucleated Red Blood Cells 1 /100 WBC (0-0); Total Cells Counted 200; WBC 25.2 k/uL (3.8-10.6)
[2019-02-20 05:51] LABS: Crenated RBC Present; Polychromasia Present
[2019-02-20 05:52] LABS: Large Platelets Present
[2019-02-20] MEDS ORDERED: DEXTROSE 5% IN WATER 1,000 ML with SODIUM BICARB (1 MEQ/ML) 150 ML IV SCH (06:00)
[2019-02-20] MEDS: NICOTINE 21MG/24HR PATCH TRANSDERM SCH (08:50)
--- NOTE | 2019-02-20 08:53 | XR ---
EXAMINATION TYPE: XR chest 1V portable DATE OF EXAM: 02/20/2019 COMPARISON: 02/19/2019 HISTORY: Tube placement TECHNIQUE: Single frontal view of the chest is obtained. FINDINGS: Bilateral consolidation and pleural effusion. Diffuse interstitial pattern. ET and NG tube stable. Diffuse osteopenia. Biapical pleural thickening. IMPRESSION: Bilateral infiltrate and pleural effusion stable. Correlate for pneumonia versus CHF.
[2019-02-20 09:14] LABS: ABG Base Excess -20.7 mmol/L; ABG HCO3 11 mmol/L (21-25); ABG PCO2 44 mmHg (35-45); ABG PO2 127 mmHg (83-108); ABG TCO2 12 mmol/L (19-24)
[2019-02-20 09:17] LABS: ABG PH <7.00 (7.35-7.45)
[2019-02-20] MEDS: MIDODRINE 5 MG TAB PO SCH ×3 (09:32→17:24)
[2019-02-20] MEDS: CALCIUM CARBONATE LIQUID 500 MG/5 ML CUP PO SCH ×2 (09:32→17:23)
[2019-02-20] MEDS: SUCRALFATE 1 GM TAB PO SCH ×2 (09:33→17:24)
[2019-02-20] MEDS: LACTULOSE 20 GM/30 ML CUP PO SCH ×3 (09:33→21:30)
[2019-02-20] MEDS: CHLORHEXIDINE GLUCONATE 15 ML CUP MUCOUS MEM SCH ×2 (09:33→20:05)
[2019-02-20] MEDS: PANTOPRAZOLE 40 MG/10 ML VIAL IVP SCH ×2 (09:33→20:05)
[2019-02-20] MEDS: DEXTROSE 5% IV SCH ×2 (09:42→16:31)
[2019-02-20] MEDS: WATER IV SCH ×2 (09:42→16:31)
[2019-02-20] MEDS: SODIUM BICARB IV SCH ×2 (09:42→16:31)
[2019-02-20 09:50] LABS: Glucose,Whole Blood 141 mg/dL (75-99)
--- NOTE | 2019-02-20 09:59 | XR ---
EXAMINATION TYPE: XR forearm bilateral DATE OF EXAM: 02/20/2019 COMPARISON: None HISTORY: Unresponsive, fluid coming out of arms severe swelling and bruising TECHNIQUE: 2 view right forearm, 2 view left forearm FINDINGS: Osseous structures appear intact. No acute fractures or dislocations are evident. Vascular calcificat ion is present bilaterally. There are surgical clips within the left antecubital fossa region. No radiopaque foreign bodies are o therwise evident. Soft tissue swelling is present, greater on the left. Bandages overlie the right fo rearm. IMPRESSION: 1. Soft tissue swelling greater on the left. 2. No suspicious radiopaque foreign bodies. 3. No acute osseous abnormality.
--- NOTE | 2019-02-20 10:10 | P.PN ---
Subjective Patient is seen in follow-up for end-stage renal disease. She is maintained on peritoneal dialysis. She is maintaining a net negative fluid balance with PD exchanges. She is currently intubated and sedated. She's being treated with IV antibiotics for pneumonia. Patient wanted A. fib with RVR last night and is currently maintained on Cardizem drip. She was extremely acidotic despite being on a bicarbonate drip. PH this morning was 6.9. Lactic acid level 19 this morning. She is currently on 50 mics of Levophed. Vital signs are stable. On vasopressors. General: The patient appeared well nourished and normally developed. Intubated. HEENT: Head exam is unremarkable. Neck is without jugular venous distension. LUNGS: Breath sounds decreased. HEART: Rate and Rhythm are regular. First and second heart sounds normal. No murmurs, rubs or gallops. ABDOMEN: Soft. Bowel sounds decreased. EXTREMITITES: 1+ edema. Objective - Vital Signs Vital signs: Vital Signs Temp 96.3 F L 02/20/19 06:45 Pulse 87 02/20/19 08:20 Resp 15 02/20/19 07:00 BP 60/26 02/19/19 23:30 Pulse Ox 96 02/20/19 07:00 Intake & Output 02/19/19 02/20/19 02/20/19 18:59 06:59 18:59 Intake Total 0253.390 1400.096 243.012 Output Total 0 0 Balance 8551.878 4117.096 243.012 Weight 73.4 kg 76.4 kg Intake: IV 1300 1533 153 Dextrose 5% in Water 1, 300 150 000 ml @ 150 mls/hr IV . Q7H40M DANISHA with Sodium Bicarb (1 Meq/ml) 150 ml Rx#:[id number] Sodium Chloride 0.45% 1, 1100 1100 000 ml @ 100 mls/hr IV . [id number] DANISHA with Sodium Bicarb (1 Meq/ml) 150 ml with Potassium Chloride 40 meq Rx#:[id number] art line pressure bag 33 3 metroNIDAZOLE-NS PMX 500 200 100 mg In Saline 1 100ml.bag @ 100 mls/hr IVPB Q8HR DANISHA Rx#:[id number] Intake, IV Titration 186.089 173.096 80.012 Amount Cefepime 1 gm In Sodium 50 Chloride 0.9% 50 ml @ 100 mls/hr IVPB Q48H DANISHA Rx# :[id number] Diltiazem 125 mg In 70.25 Sodium Chloride 0.9% 100 ml @ 7.5 MG/HR 7.5 mls/hr IV .[id number] DANISHA Rx#: [id number] Norepinephrine 32 mg In 44.019 173.096 9.762 Sodium Chloride 0.9% 218 ml @ 0.05 MCG/KG/MIN 1. 409 mls/hr IV .Q24H DANISHA Rx#:[id number] Propofol 1,000 mg In 92.07 Empty Bag 1 bag @ Titrate IV .Q0M DANISHA Rx#: [id number] Tube Feeding 50 10 Other 30 Output: Urine 0 0 Other: Voiding Method CAPD CAPD # Voids 0 0 ABP, PAP, CO, CI - Last Documented Arterial Blood Pressure 88/27 - Labs CBC & Chem 7: 02/20/19 04:00 02/20/19 04:00 Labs: Abnormal Lab Results - Last 24 Hours (Table) 02/19/19 02/19/19 02/19/19 Range/Units 13:16 17:45 23:17 WBC (3.8-10.6) k/uL MCHC (31.0-37.0) g/dL RDW (11.5-15.5) % Plt Count (150-450) k/uL Neutrophils # (Manual) (1.3-7.7) k/uL Monocytes # (Manual) (0-1.0) k/uL Metamyelocytes # (Man) (0) k/uL Myelocytes # (Manual) (0) k/uL Nucleated RBCs (0-0) /100 WBC ABG pH 7.19 L* (7.35-7.45) ABG pCO2 34 L (35-45) mmHg ABG pO2 142 H (83-108) mmHg ABG HCO3 13 L (21-25) mmol/L ABG Total CO2 14 L (19-24) mmol/L ABG O2 Saturation 98.4 H (94-97) % Sodium (137-145) mmol/L Potassium (3.5-5.1) mmol/L Carbon Dioxide (22-30) mmol/L BUN (7-17) mg/dL Creatinine (0.52-1.04) mg/dL POC Glucose (mg/dL) 115 H 56 L (75-99) mg/dL Plasma Lactic Acid Deion (0.7-2.0) mmol/L Calcium (8.4-10.2) mg/dL Phosphorus (2.5-4.5) mg/dL Total Bilirubin (0.2-1.3) mg/dL AST (14-36) U/L Alkaline Phosphatase (38-126) U/L Ammonia (<30) umol/L Total Protein (6.3-8.2) g/dL Albumin (3.5-5.0) g/dL 02/19/19 02/20/19 02/20/19 Range/Units 23:37 00:20 04:00 WBC 25.2 H (3.8-10.6) k/uL MCHC 30.0 L (31.0-37.0) g/dL RDW 16.7 H (11.5-15.5) % Plt Count 71 L (150-450) k/uL Neutrophils # (Manual) 18.30 H (1.3-7.7) k/uL Monocytes # (Manual) 2.27 H (0-1.0) k/uL Metamyelocytes # (Man) 0.25 H (0) k/uL Myelocytes # (Manual) 0.25 H (0) k/uL Nucleated RBCs 1 H (0-0) /100 WBC ABG pH (7.35-7.45) ABG pCO2 (35-45) mmHg ABG pO2 (83-108) mmHg ABG HCO3 (21-25) mmol/L ABG Total CO2 (19-24) mmol/L ABG O2 Saturation (94-97) % Sodium (137-145) mmol/L Potassium (3.5-5.1) mmol/L Carbon Dioxide (22-30) mmol/L BUN (7-17) mg/dL Creatinine (0.52-1.04) mg/dL POC Glucose (mg/dL) 228 H 156 H (75-99) mg/dL Plasma Lactic Acid Deion (0.7-2.0) mmol/L Calcium (8.4-10.2) mg/dL Phosphorus (2.5-4.5) mg/dL Total Bilirubin (0.2-1.3) mg/dL AST (14-36) U/L Alkaline Phosphatase (38-126) U/L Ammonia (<30) umol/L Total Protein (6.3-8.2) g/dL Albumin (3.5-5.0) g/dL 02/20/19 02/20/19 02/20/19 Range/Units 04:00 04:00 04:01 WBC (3.8-10.6) k/uL MCHC (31.0-37.0) g/dL RDW (11.5-15.5) % Plt Count (150-450) k/uL Neutrophils # (Manual) (1.3-7.7) k/uL Monocytes # (Manual) (0-1.0) k/uL Metamyelocytes # (Man) (0) k/uL Myelocytes # (Manual) (0) k/uL Nucleated RBCs (0-0) /100 WBC ABG pH (7.35-7.45) ABG pCO2 (35-45) mmHg ABG pO2 (83-108) mmHg ABG HCO3 (21-25) mmol/L ABG Total CO2 (19-24) mmol/L ABG O2 Saturation (94-97) % Sodium 133 L (137-145) mmol/L Potassium 5.9 H (3.5-5.1) mmol/L Carbon Dioxide 10 L (22-30) mmol/L BUN 21 H (7-17) mg/dL Creatinine 3.22 H (0.52-1.04) mg/dL POC Glucose (mg/dL) 100 H (75-99) mg/dL Plasma Lactic Acid Deion 19.0 H* (0.7-2.0) mmol/L Calcium 7.4 L (8.4-10.2) mg/dL Phosphorus 6.5 H (2.5-4.5) mg/dL Total Bilirubin 1.5 H (0.2-1.3) mg/dL AST 224 H (14-36) U/L Alkaline Phosphatase 562 H (38-126) U/L Ammonia 77 H (<30) umol/L Total Protein 3.3 L (6.3-8.2) g/dL Albumin 1.2 L (3.5-5.0) g/dL 0402/20/19 02/20/19 Range/Units 05:06 09:10 09:38 WBC (3.8-10.6) k/uL MCHC (31.0-37.0) g/dL RDW (11.5-15.5) % Plt Count (150-450) k/uL Neutrophils # (Manual) (1.3-7.7) k/uL Monocytes # (Manual) (0-1.0) k/uL Metamyelocytes # (Man) (0) k/uL Myelocytes # (Manual) (0) k/uL Nucleated RBCs (0-0) /100 WBC ABG pH 7.00 L* <7.00 L* (7.35-7.45) ABG pCO2 (35-45) mmHg ABG pO2 233 H 127 H (83-108) mmHg ABG HCO3 10 L* 11 L (21-25) mmol/L ABG Total CO2 11 L 12 L (19-24) mmol/L ABG O2 Saturation 98.9 H (94-97) % Sodium (137-145) mmol/L Potassium (3.5-5.1) mmol/L Carbon Dioxide (22-30) mmol/L BUN (7-17) mg/dL Creatinine (0.52-1.04) mg/dL POC Glucose (mg/dL) 141 H (75-99) mg/dL Plasma Lactic Acid Deion (0.7-2.0) mmol/L Calcium (8.4-10.2) mg/dL Phosphorus (2.5-4.5) mg/dL Total Bilirubin (0.2-1.3) mg/dL AST (14-36) U/L Alkaline Phosphatase (38-126) U/L Ammonia (<30) umol/L Total Protein (6.3-8.2) g/dL Albumin (3.5-5.0) g/dL Microbiology - Last 24 Hours (Table) 02/18/19 23:30 Gram Stain - Preliminary Abdomen Wound Culture - Preliminary Presumptive Staph aureus 02/15/19 15:00 Blood Culture - Preliminary Blood No Growth after 96 hours 02/18/19 23:30 Anaerobic Culture - Preliminary Abdomen 02/16/19 09:50 Gram Stain - Final Sputum Sputum Culture - Final Staphylococcus aureus Pseudomonas aeruginosa Serratia plymuthica Assessment and Plan Plan: Assessment: 1. End-stage renal disease maintained on peritoneal dialysis. 2. Pneumonia with sputum culture positive for staph aureus, Pseudomonas aeruginosa and Serratia maintained on IV antibiotics. 3. Septic shock secondary to pneumonia. Currently on Levophed. 4. Hyponatremia secondary to chronic kidney disease. 5. Severe metabolic acidosis secondary to lactic acidosis. Concern for ischemic bowel. 6. Hyperkalemia secondary to metabolic acidosis and potassium supplementation. 7. A. fib with RVR maintain on Cardizem drip. Plan: Maintain current PD changes. Patient is not a candidate for hemodialysis due to severe hemodynamic instability at this time. Maintain isotonic bicarbonate drip. 4 A of bicarb IV push now. Follow-up CAT scan of the abdomen and pelvis. Repeat potassium level this evening. Potassium supplementation in IV fluids has been discontinued. Prognosis guarded.
--- NOTE | 2019-02-20 11:16 | CONS ---
CONSULTATION Madelyn is a 63-year-old lady with history of end-stage renal disease on hemodialysis, who was admitted to hospital on 02/13/2019 feeling weak, dizzy and lightheaded. Initial evaluation revealed right-sided pleural effusion and a masslike lesion. Subsequently she deteriorated, had to be intubated and is currently on vent. She has been in the hospital for the last 6 days. I have been consulted today because of atrial fibrillation with poorly controlled ventricular rate. The patient has anemia from blood loss, has Staph aureus sepsis. Currently intubated on vent. She is requiring large doses of Levophed for hypotension and has severe and profound metabolic acidosis. Her heart rate is controlled with Cardizem and intermittently she is going into A. fib. She is not a candidate for anticoagulation at this time given the low platelet count and the platelet count had dropped on this admission from 174 to 71. Blood gases this morning revealed a pH less than 7. PAST MEDICAL HISTORY: Significant for end-stage renal disease on hemodialysis, insulin-requiring diabetes and hypertension along with dyslipidemia. MEDICATIONS: Medications at home include insulin, Neurontin, Lasix, Lipitor, Coreg and Requip. ALLERGIES: Allergic to PENICILLIN and SULFA. Family history, social history and review of systems, I am unable to obtain from the patient who is intubated on vent. I reviewed the chart. PHYSICAL EXAMINATION: On exam, patient is intubated on vent. Heart rate is around 90 to 110 beats per minute. Blood pressure is 140/30. Respiratory rate is 18. Chest exam reveals diminished air entry at the bases. Heart exam reveals first and second heart sounds, irregular rhythm. No murmur. Abdomen appears distended. Examination of the extremities reveals 1+ edema. Peripheral pulses are diminished. LABS: Labs show a hemoglobin of 11.4, white cell count is 35. BUN is 21, creatinine is 3.2. Potassium is 5.9. Lactic acid is elevated at 19. It has only gone up since admission. ASSESSMENT: 1. Persistent atrial fibrillation. 2. Respiratory failure. 3. End-stage renal disease on peritoneal dialysis. 4. Thrombocytopenia. 5. Sepsis with profound hypotension. PLAN: Prognosis guarded. Use the Cardizem for rate control as needed. Not a candidate for anticoagulation. Reviewed the echocardiogram. LV function is normal. MMODL / IJN: [id number] /
--- NOTE | 2019-02-20 11:19 | P.PN ---
Subjective Progress Note Date: 02/20/19 Principal diagnosis: Acute hypoxic respiratory failure, pneumonia, and septic shock. This is a 63-year-old female patient with known history of COPD, diabetes mellitus, hypertension hyperlipidemia and she has also dialysis-dependent renal failure and the patient is undergoing peritoneal dialysis. The patient came into the hospital feeling weak, dizzy and lightheaded. She stated that she was hardly able to walk. She hasn't been eating or drinking for several days. She stated that she had only 2 bottles of water over the past few days. No nausea. No vomiting. No diarrhea. No altered mentation. She had been undergoing Peritoneal dialysis. No fever. No chills. The patient had a chest x-ray in the emergency department that showed right basilar opacity/mass/atelectasis with effusion. This was followed up by CAT scan of the chest that showed a moderate- sized right-sided pleural effusion in addition to masslike consolidation in the right lower lobe and the right upper lobe. There was also enlarged right paratracheal lymph nodes measuring 18 x 12 mm in size and anterior mediastinal lymph node measuring 1.5 cm. There is a questionable right hilar mass in addition. This CAT scan was done without contrast. Another masslike consolidation is present in the right upper lobe lateral chest area measuring 6 x 2.5 cm in size. No focal bony destruction. The patient during this current hospital stay. Large-volume coffee-ground emesis 5. For that reason the patient was seen by gastroenterology and the patient is going to undergo an EGD today. Upon further questioning, the patient is a chronic smoker. She has recently seen Dr. Williamson regarding possibility of lung cancer. 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 On 02/15/2019 patient seen in follow-up on medical surgical floor. The rapid response team was called in regards to patient's hypotension today. The blood pressure dropped down as low as 57/35, and has been noted to be more lethargic. Afebrile, she is on room air, maintaining good oxygenation, patient had her peritoneal dialysis exchange this morning, and she had 200 mL of fluid removed with peritoneal dialysis this morning. She was started on oral Midrin, she is receiving IV normal saline at a rate of 100 ML per hour, and we'll give the patient 250 mL of 5% albumin. She has had no further vomiting or diarrhea, no hematemesis, no melena. Today's hemoglobin is 11.3, with blood cell count is 7 .5, sodium is 135, potassium 3.2, CO2 is 19, BUN is 39, creatinine is 6.15, peritoneal fluid cultures have shown no growth so far. Patient's lung sounds are diminished, with the bibasilar crackles. She is arousable to verbal stimuli, but drowsy. Denies any chest pain. On 02/18/2019, patient was seen on follow-up for her acute septic shock pneumonia and acute hypoxic respiratory failure. Remains on mechanical ventilation, presently her ventilator settings are assist control rate of 16 tidal volume of 400 FiO2 of 40% PEEP of 5. ABG showed a pO2 of 82 pCO2 of 42 pH of 7.25, patient remains on bicarb drip. Her peak airway pressure is 34 plateau pressure is 28. Remains on propofol at 35 mcg/kg/m, norepinephrine at 16 mcg/m, and on bicarb drip., Insulin will be started today for elevated blood sugars. Chest x-ray continues to show evidence of bilateral consolidations and pleural effus ions, diffuse airspace disease with a combination of congestive heart failure/pulmonary edema and pneumonia is strongly suspected. Remains on peritoneal dialysis, remains on broad-spectrum antibiotics, and her sputum seems to be positive for staph aureus, and pseudomonas so far. Both are being covered empirically at this point. CBC showed leukocytosis with WBC count of 37.4 hemoglobin is 11.6. Platelets are 77,000. Electrolytes were reviewed low- sodium, low potassium, bicarb remains low at 17 BUN is 29 creatinine 4.01. Ammonia level is 54 today. Hence lactulose will be started for elevated ammonia level. On 02/19/2019, patient was seen on follow-up in the intensive care unit, remains on mechanical ventilation, and her ventilator settings are tidal volume of 400, assist control rate 16 FiO2 is up to 45% from 40% and PEEP at 5. Peak airway pressure is 33 plateau pressure is 27. ABG on 40% showed a pO2 of 63 pCO2 of 37 pH of 7.28 continues to have leukocytosis with WBC count of 51.6 hemoglobin is 12 she has low sodium of 128, metabolic acidosis, and BUN of 25 creatinine of 3.47. Remains on peritoneal dialysis, hemodialysis is being considered, however were not certain if we can start using her left arm fistula. Sputum is positive for Pseudomonas, and staph aureus and Serratia remains on broad-spectrum antibiotics. Remains on multiple drips including norepinephrine at 0.3 mcg/kg/m, bicarb drip, propofol at 10 mcg/kg/m. Patient is unresponsive to any stimuli, hence recommended repeat CT of the brain without contrast. And recommended that we stop propofol completely until we could assess mental status again. On 02/20/2019, patient remains on mechanical ventilation, she has taken a downhill course over the last 24 hours. Patient is now getting extremely acidotic, her lactic acid is in the range of 20, her pH is below 7, and that is in spite of significant amount of bicarb given over the last 24 hours she remains on bicarb drip at the same time. Patient is requiring norepinephrine, presently on 50 mcg/m of norepinephrine, she is off propofol, and remains u nresponsive to any stimuli. She also went into A. fib/RVR last night, and she was placed on Cardizem drip by cardiology, presently on 5 mg per hour drip. Clearly the patient has taken a significant downhill course and I'm suspecting that we may be dealing with bowel ischemia and profound lactic acidosis. Did initiate surgical consultation, however the patient is not a candidate for any surgical intervention, I also recommended CT of the abdomen and pelvis. X-rays of both forearms were ordered to make sure that she does not have necrotizing fasciitis of both forearms. Discussed her condition with the boarding kennel or cattery operator, and he feels the patient could not tolerate hemodialysis if started because of her hypotension and the fact that she is on norepinephrine at 50 mcg/m. I instructed the nurses to notify her family, would like to discuss her CODE STATUS, and would like to update the family on her poor condition, and it is almost a medical futility subcu a this point. More bicarb was given, increase the bicarb drip, and she remains on antibiotics for her sepsis and septic shock. However considering the new findings, I am convinced that we may be dealing with ischemic bowel with significant lactic acidosis. ABG this morning showed a pO2 of 127 pCO2 of 44 pH of 7.0. Potassium is up to 5.9. Liver enzymes are showing some worsening and we may be dealing also with shocked liver. Ammonia level is elevated at 77. Alkaline phosphatase is 562, bilirubin is 1.5. WBC count is up to 25,006 hemoglobin is 11.4 platelets are low at 71, bands are 20%. Objective - Vital Signs Vital signs: Vital Signs Temp 96.3 F L 02/20/19 06:45 Pulse 87 02/20/19 08:20 Resp 15 02/20/19 07:00 BP 60/26 02/19/19 23:30 Pulse Ox 96 02/20/19 07:00 Intake & Output 02/19/19 02/20/19 02/20/19 18:59 06:59 18:59 Intake Total 1103.145 1993.096 243.012 Output Total 0 0 Balance 1372.538 5029.096 243.012 Weight 73.4 kg 76.4 kg Intake: IV 1300 1533 153 Dextrose 5% in Water 1, 300 150 000 ml @ 150 mls/hr IV . Q7H40M DANISHA with Sodium Bicarb (1 Meq/ml) 150 ml Rx#:[id number] Sodium Chloride 0.45% 1, 1100 1100 000 ml @ 100 mls/hr IV . [id number] DANISHA with Sodium Bicarb (1 Meq/ml) 150 ml with Potassium Chloride 40 meq Rx#:[id number] art line pressure bag 33 3 metroNIDAZOLE-NS PMX 500 200 100 mg In Saline 1 100ml.bag @ 100 mls/hr IVPB Q8HR [facility] Rx#:[id number] Intake, IV Titration 186.089 173.096 80.012 Amount Cefepime 1 gm In Sodium 50 Chloride 0.9% 50 ml @ 100 mls/hr IVPB Q48H DANISHA Rx# :[id number] Diltiazem 125 mg In 70.25 Sodium Chloride 0.9% 100 ml @ 7.5 MG/HR 7.5 mls/hr IV .[id number] [facility] Rx#: [id number] Norepinephrine 32 mg In 44.019 173.096 9.762 Sodium Chloride 0.9% 218 ml @ 0.05 MCG/KG/MIN 1. 409 mls/hr IV .Q24H DANISHA Rx#:[id number] Propofol 1,000 mg In 92.07 Empty Bag 1 bag @ Titrate IV .Q0M DANISHA Rx#: [id number] Tube Feeding 50 10 Other 30 Output: Urine 0 0 Other: Voiding Method CAPD CAPD # Voids 0 0 ABP, PAP, CO, CI - Last Documented Arterial Blood Pressure 88/27 - Exam Physical Exam: Revealed a 63-year-old female, on mechanical ventilation, unresponsive, on significant amount of norepinephrine drip as noted earlier. Presently 50 mcg/m. Head: Atraumatic, normocephalic. HEENT:[Neck is supple.] [No neck masses.] [No thyromegaly.] [No JVD.]. The right pupil is larger than the left pupil, nonreactive to light. EOMI, no icterus. Mucous membranes are moist. Endotracheal tube and orogastric tube are intact. Chest: Diminished breath sounds at the bases, crackles and rhonchi noted at the bases bilaterally. Symmetrical chest expansion noted. No chest wall deformity. Cardiac Exam: [Irregular irregular rhythm. Normal S1 and S2, no S3 gallop, no murmur.] Abdomen: [Obese, slightly distended, nontender, no megaly, no rebound, no guarding, diminished bowel sounds] Extremities: [No clubbing, 3+ bipedal edema, no cyanosis. Diminished distal pulses bilaterally in upper and lower extremities] Significant swelling is noted in both forearms. Patient has a right femoral triple-lumen catheter. There is 3+ bipedal edema, and an old AV fistula noted in the left arm. Supposedly functional. Neurological Exam: Unresponsive to any stimuli.. There is however right pupil seems to be larger than the left pupil. Patient is unresponsive to deep painful stimuli in spite of being off propofol for the last 24 hours Psychiatric could not be assessed, unresponsive to any stimuli including painful stimuli. Skin: Significant swelling and erythema noted in the forearms bilaterally. And diminished distal pulses bilaterally. Lymphatics: No lymphadenopathy. - Labs CBC & Chem 7: 02/20/19 04:00 02/20/19 04:00 Labs: Abnormal Lab Results - Last 24 Hours (Table) 02/19/19 02/19/19 02/19/19 Range/Units 13:16 17:45 23:17 WBC (3.8-10.6) k/uL MCHC (31.0-37.0) g/dL RDW (11.5-15.5) % Plt Count (150-450) k/uL Neutrophils # (Manual) (1.3-7.7) k/uL Monocytes # (Manual) (0-1.0) k/uL Metamyelocytes # (Man) (0) k/uL Myelocytes # (Manual) (0) k/uL Nucleated RBCs (0-0) /100 WBC ABG pH 7.19 L* (7.35-7.45) ABG pCO2 34 L (35-45) mmHg ABG pO2 142 H (83-108) mmHg ABG HCO3 13 L (21-25) mmol/L ABG Total CO2 14 L (19-24) mmol/L ABG O2 Saturation 98.4 H (94-97) % Sodium (137-145) mmol/L Potassium (3.5-5.1) mmol/L Carbon Dioxide (22-30) mmol/L BUN (7-17) mg/dL Creatinine (0.52-1.04) mg/dL POC Glucose (mg/dL) 115 H 56 L (75-99) mg/dL Plasma Lactic Acid Deion (0.7-2.0) mmol/L Calcium (8.4-10.2) mg/dL Phosphorus (2.5-4.5) mg/dL Total Bilirubin (0.2-1.3) mg/dL AST (14-36) U/L Alkaline Phosphatase (38-126) U/L Ammonia (<30) umol/L Total Protein (6.3-8.2) g/dL Albumin (3.5-5.0) g/dL 02/19/19 02/20/19 02/20/19 Range/Units 23:37 00:20 04:00 WBC 25.2 H (3.8-10.6) k/uL MCHC 30.0 L (31.0-37.0) g/dL RDW 16.7 H (11.5-15.5) % Plt Count 71 L (150-450) k/uL Neutrophils # (Manual) 18.30 H (1.3-7.7) k/uL Monocytes # (Manual) 2.27 H (0-1.0) k/uL Metamyelocytes # (Man) 0.25 H (0) k/uL Myelocytes # (Manual) 0.25 H (0) k/uL Nucleated RBCs 1 H (0-0) /100 WBC ABG pH (7.35-7.45) ABG pCO2 (35-45) mmHg ABG pO2 (83-108) mmHg ABG HCO3 (21-25) mmol/L ABG Total CO2 (19-24) mmol/L ABG O2 Saturation (94-97) % Sodium (137-145) mmol/L Potassium (3.5-5.1) mmol/L Carbon Dioxide (22-30) mmol/L BUN (7-17) mg/dL Creatinine (0.52-1.04) mg/dL POC Glucose (mg/dL) 228 H 156 H (75-99) mg/dL Plasma Lactic Acid Deion (0.7-2.0) mmol/L Calcium (8.4-10.2) mg/dL Phosphorus (2.5-4.5) mg/dL Total Bilirubin (0.2-1.3) mg/dL AST (14-36) U/L Alkaline Phosphatase (38-126) U/L Ammonia (<30) umol/L Total Protein (6.3-8.2) g/dL Albumin (3.5-5.0) g/dL 02/20/19 02/20/19 02/20/19 Range/Units 04:00 04:00 04:01 WBC (3.8-10.6) k/uL MCHC (31.0-37.0) g/dL RDW (11.5-15.5) % Plt Count (150-450) k/uL Neutrophils # (Manual) (1.3-7.7) k/uL Monocytes # (Manual) (0-1.0) k/uL Metamyelocytes # (Man) (0) k/uL Myelocytes # (Manual) (0) k/uL Nucleated RBCs (0-0) /100 WBC ABG pH (7.35-7.45) ABG pCO2 (35-45) mmHg ABG pO2 (83-108) mmHg ABG HCO3 (21-25) mmol/L ABG Total CO2 (19-24) mmol/L ABG O2 Saturation (94-97) % Sodium 133 L (137-145) mmol/L Potassium 5.9 H (3.5-5.1) mmol/L Carbon Dioxide 10 L (22-30) mmol/L BUN 21 H (7-17) mg/dL Creatinine 3.22 H (0.52-1.04) mg/dL POC Glucose (mg/dL) 100 H (75-99) mg/dL Plasma Lactic Acid Deion 19.0 H* (0.7-2.0) mmol/L Calcium 7.4 L (8.4-10.2) mg/dL Phosphorus 6.5 H (2.5-4.5) mg/dL Total Bilirubin 1.5 H (0.2-1.3) mg/dL AST 224 H (14-36) U/L Alkaline Phosphatase 562 H (38-126) U/L Ammonia 77 H (<30) umol/L Total Protein 3.3 L (6.3-8.2) g/dL Albumin 1.2 L (3.5-5.0) g/dL 02/20/19 02/20/19 02/20/19 Range/Units 05:06 09:10 09:38 WBC (3.8-10.6) k/uL MCHC (31.0-37.0) g/dL RDW (11.5-15.5) % Plt Count (150-450) k/uL Neutrophils # (Manual) (1.3-7.7) k/uL Monocytes # (Manual) (0-1.0) k/uL Metamyelocytes # (Man) (0) k/uL Myelocytes # (Manual) (0) k/uL Nucleated RBCs (0-0) /100 WBC ABG pH 7.00 L* <7.00 L* (7.35-7.45) ABG pCO2 (35-45) mmHg ABG pO2 233 H 127 H (83-108) mmHg ABG HCO3 10 L* 11 L (21-25) mmol/L ABG Total CO2 11 L 12 L (19-24) mmol/L ABG O2 Saturation 98.9 H (94-97) % Sodium (137-145) mmol/L Potassium (3.5-5.1) mmol/L Carbon Dioxide (22-30) mmol/L BUN (7-17) mg/dL Creatinine (0.52-1.04) mg/dL POC Glucose (mg/dL) 141 H (75-99) mg/dL Plasma Lactic Acid Deion (0.7-2.0) mmol/L Calcium (8.4-10.2) mg/dL Phosphorus (2.5-4.5) mg/dL Total Bilirubin (0.2-1.3) mg/dL AST (14-36) U/L Alkaline Phosphatase (38-126) U/L Ammonia (<30) umol/L Total Protein (6.3-8.2) g/dL Albumin (3.5-5.0) g/dL Microbiology - Last 24 Hours (Table) 02/18/19 23:30 Gram Stain - Preliminary Abdomen Wound Culture - Preliminary Presumptive Staph aureus 02/15/19 15:00 Blood Culture - Preliminary Blood No Growth after 96 hours 02/18/19 23:30 Anaerobic Culture - Preliminary Abdomen 02/16/19 09:50 Gram Stain - Final Sputum Sputum Culture - Final Staphylococcus aureus Pseudomonas aeruginosa Serratia plymuthica Assessment and Plan Assessment: Impression: 1 acute hypoxic respiratory failure secondary to pneumonia, likely community-ac quired, and suspected diastolic congestive heart failure. Also suspect staph aureus peritonitis based on positive cultures from the dialysate fluid. 2 acute sepsis and septic shock secondary to pneumonia, and abdominal sepsis remains on broad-spectrum antibiotics. 3 suspect erosive gastritis and upper GI bleeding patient remains on Protonix, hemoglobin is stable at 11.4 4 chronic end-stage renal disease on peritoneal dialysis. 5 acute metabolic acidosis secondary to sepsis and underlying chronic kidney disease. 6 COPD, presently inactive 7 type 2 diabetes presently on insulin drip 8 benign essential hypertension 9 leukocytosis secondary to sepsis and septic shock 10 profound lactic acidosis most likely secondary to bowel ischemia. Although could be related to sepsis and septic shock. 11 mental status change, suspect metabolic encephalopathy or possibly anoxic brain injury. CT of the brain is nondiagnostic 12 severe lactic acidosis with profound hypotension felt to be most likely secondary to ischemic bowel unless proven otherwise. Hence I recommended CT of the abdomen and surgical consultation. Although the patient is clearly not a surgical candidate, and she would not be able to tolerate any surgical intervention. Recommendation: Considering the significant deterioration over the last 24 hours, I believe the patient is clinically much worse today than she was in the last 2 days, and I suspect that we may be dealing with abdominal sepsis and ischemic bowel. Recommended CT of the abdomen without contrast, discussed her condition with nephrology, she is not and will not be able to tolerate hemodialysis at this point, we'll continue bicarb drip, will initiate surgical consultation, and she is not a good surgical candidate. At this point I would like to discuss and update her condition to her family and possibly consider terminal weaning and comfort care measures. This is likely a medical futility situation, and based on the ABG and based on the profound acidosis, this is clearly indicative of high mortality and medical futility , for now we'll continue supportive care measures, ventilatory support hemodynamics support antibiotic GI DVT prophylaxis, and we'll discuss with the different consultants including nephrology and surgery the situation we are dealing with. Again family will be updated. Critical care time is 40 minutes. C Time with Patient: Greater than 30
--- NOTE | 2019-02-20 11:27 | CT ---
EXAMINATION TYPE: CT abdomen pelvis wo con DATE OF EXAM: 02/20/2019 HISTORY: Possible ischemic bowel. CT DLP: 857.6 mGycm. Automated Exposure Control for Dose Reduction was Utilized. TECHNIQUE: CT scan of the abdomen and pelvis is performed without oral or IV contrast. COMPARISON: Chest CT 4 days ago FINDINGS: Within the limitations of a non-contrast study, the following observations are made. LUNG BASES: There is partial visualization of small bibasilar pleural effusions or fluid collections with associated compressive atelectasis. There is partial visualization of additional areas of consol idation anterolateral and right infrahilar region redemonstrated. There is suspicion for new cavitary lesion anterior right mid to lower lung axial image 1 partially imaged from prior CT, this correlate s with chest x-ray earlier today. LIVER/GB: Liver is somewhat small in size with lobulated peripheral nodular contour and surrounding a scites. There are some punctate calcifications scattered throughout the liver. PANCREAS: Pancreas is diffusely small in caliber. SPLEEN: Spleen is normal in size with surrounding ascites. ADRENALS: Slight asymmetric thickening to left adrenal gland favors benign hyperplasia. KIDNEYS: There is small size and cortical thinning in both kidneys. Bladder is poorly seen from adjacent ascites and is thus suboptimally evaluated. BOWEL: Evaluation bowel is suboptimal secondary to lack of enteric contrast and significant ascites w ith fluid filled bowel loops blending with abdominal ascites. There is nasogastric tube terminating i n second portion of duodenum. There is some decompression of stomach. Duodenal sweep shows no suspici ous dilatation. Suboptimal evaluation of bowel loops to evaluate for wall thickening is noted. Areas of wall thickening and small bowel loops felt present. No suspicious colonic dilatation. No definitiv e nondependent air or suspicious air within wall of bowel loops. Some small bowel loops in the left a bdomen are prominent but not greater than 3 cm dilated. Fluid-filled prominent small bowel loops are noted GENITAL ORGANS: Uterus is surgically absent or markedly atrophic.. LYMPH NODES: No greater than 1cm abdominal or pelvic lymph nodes are appreciated. OSSEOUS STRUCTURES: No significant abnormality is seen. OTHER: There is severe diffuse soft tissue anasarca. There is mild abdominal and pelvic ascites. Ther e is right pelvic peritoneal dialysis catheter. There is severe calcified plaque of aorta extending i nto small caliber vessels consistent with history of chronic end-stage renal disease and dialysis. IMPRESSION: 1. No definitive free or portal venous or suspicious colonic air to suggest ischemic bowel. Nasogastr ic tube terminates in duodenum. There are prominent fluid-filled bowel loops throughout the left abdo men with some air and fluid prominent colonic loops. Consider ileus versus partial small bowel obstru ction. 2. Persistent small bilateral pleural effusions. Persistent multifocal areas of suspicious consolidat ion in the right lower lung. There appears to be interval development of a thick-walled cavitary lesi on or pulmonary abscess in the right midlung laterally from prior CT 4 days ago. 3. Possible underlying cirrhosis, correlate clinically. Small amount of abdominal and pelvic ascites with severe soft tissue anasarca. Peritoneal dialysis catheter noted.
--- NOTE | 2019-02-20 12:10 | CONS ---
DATE OF CONSULTATION: 02/20/2019 This is a 63-year-old female patient well known to us from the office. Patient had history of chronic renal failure. Patient had a transposition of basilic vein fistula on the left upper arm with stent placement in the past. The patient has been admitted to the intensive care unit. Patient on vent and Levophed. Patient also having dialysis through the peritoneum. I was consulted whether this fistula can be used. PHYSICAL EXAMINATION: Patient is on a ventilator. Left upper arm has a fistula with some thrill present. Radial pulses are not palpable bilateral because of patient is on Levophed and vasoconstriction. I have discussed this case with Dr. Anna. Since patient is on Levophed and there is a chance of hypertension and graft that is occluded, if there is no problem with peritoneal dialysis, then this should be continued and Dr. Anna agreed. MMODL / IJN: [id number] / MTDD
[2019-02-20 12:38] LABS: Glucose,Whole Blood 117 mg/dL (75-99)
--- NOTE | 2019-02-20 12:39 | P.GSCN ---
History of Present Illness Consult date: 02/20/19 Reason for Consult: Possible ischemic bowel History of present illness: Patient hospitalized on 02/13 with complaints of altered mental status, some decrease in hearing, and generalized weakness. History obtained from the patient's and son. While at home the patient was eating well per the family without nausea or vomiting. There was no diarrhea. Patient had no abdominal pain. Patient is known to our service from previous peritoneal dialysis catheter placement. Patient's dialysis catheter has been functioning properly. There has been no documentation of cloudy fluid. Cultures taken from the dialysis fluid recently however does show presumptive staph aureus. Patient has been suffering with septic shock for the last few days. Etiology of the patient's sepsis has included a right-sided pneumonia with possible underlying malignancy. Recent findings of catheter-related peritonitis also suspected. Patient is on appropriate coverage. Patient unfortunately has had significant leukocytosis with bandemia for the last 3 days however this today the patient is demonstrating increased hypotension and acidosis. Patient's pH today is less than 7.0, lactic acid 19. CAT scan abdomen and pelvis was obtained which shows some free fluid which would be anticipated with her dialysis exchanges. No obvious inflammatory changes seen in the colon or small bowel. No pneumatosis or portal venous gas is seen. Surprisingly no free air is seen despite the peritoneal dialysis. The patient's right lung does seem to be worsened from previous evaluation per radiology. The patient is not receiving any sedation since yesterday. She is not exhibiting appropriate response to pain. Review of Systems ROS unobtainable: due to endotracheal tube Past Medical History Past Medical History: Diabetes Mellitus, Dialysis, Hyperlipidemia, Hypertension, Renal Disease Additional Past Medical History / Comment(s): NEUROPATHY FEET, HEMODIALYSIS PERITONEAL DIALYSIS DAILY AT HOME.HEMODIALYSIS CATH IN NECK 10/20. REMOVED. STENT IN R ABDOMEN AND LT ARM - pt states she does peritoneal dialysis at home History of Any Multi-Drug Resistant Organisms: None Reported Past Surgical History: Appendectomy, Hysterectomy Additional Past Surgical History / Comment(s): STATES HX OF 3 HEMODIALYSIS CATHETERS. 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 She is ongoing tobacco smoker. Denies significant alcohol use. No recreational drug use. No extensive travels. No animal exposures. Smoking Status: Heavy tobacco smoker Past Alcohol Use History: Occasional Past Drug Use History: None Reported - Past Family History Mother Family Medical History: Cancer, Diabetes Mellitus Father Family Medical History: Myocardial Infarction ([place]) Additional Family Medical History / Comment(s): Black lung Medications and Allergies Home Medications Medication Instructions Recorded Confirmed Type Atorvastatin [Lipitor] 20 mg PO HS 08/05/14 02/13/19 History Insuln Asp Prt/Insulin Aspart 5 - 6 unit SQ DAILY@1400 07/17/16 02/13/19 History [NovoLOG MIX 70-30 VIAL] Furosemide 80 mg PO BID 07/18/16 02/13/19 History Gabapentin 600 mg PO DAILY PRN 07/18/16 02/13/19 History Carvedilol [Coreg] 12.5 mg PO BID 02/13/19 02/13/19 History rOPINIRole HCL [Requip] 1 mg PO BID 02/13/19 02/13/19 History Allergies Allergy/AdvReac Type Severity Reaction Status Date / Time Sulfa (Sulfonamide Allergy Unknown Rash/Hives Verified 02/13/19 14:22 Antibiotics) Penicillins Allergy Rash/Hives Verified 02/13/19 14:22 Surgical - Exam Vital Signs Temp Pulse Resp BP Pulse Ox 97.6 F 73 16 62/39 98 02/13/19 13:25 02/13/19 13:25 02/13/19 13:25 02/13/19 13:25 02/13/19 13:25 Physical exam: General: Elderly female appears older than stated age on ventilator HEENT: Normocephalic, sclerae nonicteric Abdomen: Significant edema involving all tissues including the abdominal wall, mild distention, no appreciable tenderness, catheter noted with clear fluid in the catheter Extremities: Significant edema diffusely Neuro: On ventilator Results - Labs 02/20/19 04:00 02/20/19 04:00 Abnormal Lab Results - Last 24 Hours (Table) 02/19/19 02/19/19 02/19/19 Range/Units 13:16 17:45 23:17 WBC (3.8-10.6) k/uL MCHC (31.0-37.0) g/dL RDW (11.5-15.5) % Plt Count (150-450) k/uL Neutrophils # (Manual) (1.3-7.7) k/uL Monocytes # (Manual) (0-1.0) k/uL Metamyelocytes # (Man) (0) k/uL Myelocytes # (Manual) (0) k/uL Nucleated RBCs (0-0) /100 WBC ABG pH 7.19 L* (7.35-7.45) ABG pCO2 34 L (35-45) mmHg ABG pO2 142 H (83-108) mmHg ABG HCO3 13 L (21-25) mmol/L ABG Total CO2 14 L (19-24) mmol/L ABG O2 Saturation 98.4 H (94-97) % ABG Lactic Acid (0.5-1.6) mmol/L Sodium (137-145) mmol/L Potassium (3.5-5.1) mmol/L Carbon Dioxide (22-30) mmol/L BUN (7-17) mg/dL Creatinine (0.52-1.04) mg/dL POC Glucose (mg/dL) 115 H 56 L (75-99) mg/dL Plasma Lactic Acid Deion (0.7-2.0) mmol/L Calcium (8.4-10.2) mg/dL Phosphorus (2.5-4.5) mg/dL Total Bilirubin (0.2-1.3) mg/dL AST (14-36) U/L Alkaline Phosphatase (38-126) U/L Ammonia (<30) umol/L Total Protein (6.3-8.2) g/dL Albumin (3.5-5.0) g/dL 02/19/19 02/20/19 02/20/19 Range/Units 23:37 00:20 04:00 WBC 25.2 H (3.8-10.6) k/uL MCHC 30.0 L (31.0-37.0) g/dL RDW 16.7 H (11.5-15.5) % Plt Count 71 L (150-450) k/uL Neutrophils # (Manual) 18.30 H (1.3-7.7) k/uL Monocytes # (Manual) 2.27 H (0-1.0) k/uL Metamyelocytes # (Man) 0.25 H (0) k/uL Myelocytes # (Manual) 0.25 H (0) k/uL Nucleated RBCs 1 H (0-0) /100 WBC ABG pH (7.35-7.45) ABG pCO2 (35-45) mmHg ABG pO2 (83-108) mmHg ABG HCO3 (21-25) mmol/L ABG Total CO2 (19-24) mmol/L ABG O2 Saturation (94-97) % ABG Lactic Acid (0.5-1.6) mmol/L Sodium (137-145) mmol/L Potassium (3.5-5.1) mmol/L Carbon Dioxide (22-30) mmol/L BUN (7-17) mg/dL Creatinine (0.52-1.04) mg/dL POC Glucose (mg/dL) 228 H 156 H (75-99) mg/dL Plasma Lactic Acid Deion (0.7-2.0) mmol/L Calcium (8.4-10.2) mg/dL Phosphorus (2.5-4.5) mg/dL Total Bilirubin (0.2-1.3) mg/dL AST (14-36) U/L Alkaline Phosphatase (38-126) U/L Ammonia (<30) umol/L Total Protein (6.3-8.2) g/dL Albumin (3.5-5.0) g/dL 02/20/19 02/20/19 02/20/19 Range/Units 04:00 04:00 04:01 WBC (3.8-10.6) k/uL MCHC (31.0-37.0) g/dL RDW (11.5-15.5) % Plt Count (150-450) k/uL Neutrophils # (Manual) (1.3-7.7) k/uL Monocytes # (Manual) (0-1.0) k/uL Metamyelocytes # (Man) (0) k/uL Myelocytes # (Manual) (0) k/uL Nucleated RBCs (0-0) /100 WBC ABG pH (7.35-7.45) ABG pCO2 (35-45) mmHg ABG pO2 (83-108) mmHg ABG HCO3 (21-25) mmol/L ABG Total CO2 (19-24) mmol/L ABG O2 Saturation (94-97) % ABG Lactic Acid (0.5-1.6) mmol/L Sodium 133 L (137-145) mmol/L Potassium 5.9 H (3.5-5.1) mmol/L Carbon Dioxide 10 L (22-30) mmol/L BUN 21 H (7-17) mg/dL Creatinine 3.22 H (0.52-1.04) mg/dL POC Glucose (mg/dL) 100 H (75-99) mg/dL Plasma Lactic Acid Deion 19.0 H* (0.7-2.0) mmol/L Calcium 7.4 L (8.4-10.2) mg/dL Phosphorus 6.5 H (2.5-4.5) mg/dL Total Bilirubin 1.5 H (0.2-1.3) mg/dL AST 224 H (14-36) U/L Alkaline Phosphatase 562 H (38-126) U/L Ammonia 77 H (<30) umol/L Total Protein 3.3 L (6.3-8.2) g/dL Albumin 1.2 L (3.5-5.0) g/dL 02/20/19 02/20/19 02/20/19 Range/Units 05:06 09:10 09:38 WBC (3.8-10.6) k/uL MCHC (31.0-37.0) g/dL RDW (11.5-15.5) % Plt Count (150-450) k/uL Neutrophils # (Manual) (1.3-7.7) k/uL Monocytes # (Manual) (0-1.0) k/uL Metamyelocytes # (Man) (0) k/uL Myelocytes # (Manual) (0) k/uL Nucleated RBCs (0-0) /100 WBC ABG pH 7.00 L* <7.00 L* (7.35-7.45) ABG pCO2 (35-45) mmHg ABG pO2 233 H 127 H (83-108) mmHg ABG HCO3 10 L* 11 L (21-25) mmol/L ABG Total CO2 11 L 12 L (19-24) mmol/L ABG O2 Saturation 98.9 H (94-97) % ABG Lactic Acid (0.5-1.6) mmol/L Sodium (137-145) mmol/L Potassium (3.5-5.1) mmol/L Carbon Dioxide (22-30) mmol/L BUN (7-17) mg/dL Creatinine (0.52-1.04) mg/dL POC Glucose (mg/dL) 141 H (75-99) mg/dL Plasma Lactic Acid Deion (0.7-2.0) mmol/L Calcium (8.4-10.2) mg/dL Phosphorus (2.5-4.5) mg/dL Total Bilirubin (0.2-1.3) mg/dL AST (14-36) U/L Alkaline Phosphatase (38-126) U/L Ammonia (<30) umol/L Total Protein (6.3-8.2) g/dL Albumin (3.5-5.0) g/dL 02/20/19 Range/Units 09:40 WBC (3.8-10.6) k/uL MCHC (31.0-37.0) g/dL RDW (11.5-15.5) % Plt Count (150-450) k/uL Neutrophils # (Manual) (1.3-7.7) k/uL Monocytes # (Manual) (0-1.0) k/uL Metamyelocytes # (Man) (0) k/uL Myelocytes # (Manual) (0) k/uL Nucleated RBCs (0-0) /100 WBC ABG pH (7.35-7.45) ABG pCO2 (35-45) mmHg ABG pO2 (83-108) mmHg ABG HCO3 (21-25) mmol/L ABG Total CO2 (19-24) mmol/L ABG O2 Saturation (94-97) % ABG Lactic Acid 23.6 H* (0.5-1.6) mmol/L Sodium (137-145) mmol/L Potassium (3.5-5.1) mmol/L Carbon Dioxide (22-30) mmol/L BUN (7-17) mg/dL Creatinine (0.52-1.04) mg/dL POC Glucose (mg/dL) (75-99) mg/dL Plasma Lactic Acid Deion (0.7-2.0) mmol/L Calcium (8.4-10.2) mg/dL Phosphorus (2.5-4.5) mg/dL Total Bilirubin (0.2-1.3) mg/dL AST (14-36) U/L Alkaline Phosphatase (38-126) U/L Ammonia (<30) umol/L Total Protein (6.3-8.2) g/dL Albumin (3.5-5.0) g/dL Microbiology - Last 24 Hours (Table) 02/18/19 23:30 Gram Stain - Preliminary Abdomen Wound Culture - Preliminary Presumptive Staph aureus 02/15/19 15:00 Blood Culture - Preliminary Blood No Growth after 96 hours 02/18/19 23:30 Anaerobic Culture - Preliminary Abdomen 02/16/19 09:50 Gram Stain - Final Sputum Sputum Culture - Final Staphylococcus aureus Pseudomonas aeruginosa Serratia plymuthica Diabetes panel 02/20/19 Range/Units 04:00 Sodium 133 L (137-145) mmol/L Potassium 5.9 H (3.5-5.1) mmol/L Chloride 98 (98-107) mmol/L Carbon Dioxide 10 L (22-30) mmol/L BUN 21 H (7-17) mg/dL Creatinine 3.22 H (0.52-1.04) mg/dL Glucose 94 (74-99) mg/dL Calcium 7.4 L (8.4-10.2) mg/dL AST 224 H (14-36) U/L ALT 52 (9-52) U/L Alkaline Phosphatase 562 H (38-126) U/L Total Protein 3.3 L (6.3-8.2) g/dL Albumin 1.2 L (3.5-5.0) g/dL Calcium panel 02/20/19 Range/Units 04:00 Calcium 7.4 L (8.4-10.2) mg/dL Phosphorus 6.5 H (2.5-4.5) mg/dL Albumin 1.2 L (3.5-5.0) g/dL Pituitary panel 02/20/19 Range/Units 04:00 Sodium 133 L (137-145) mmol/L Potassium 5.9 H (3.5-5.1) mmol/L Chloride 98 (98-107) mmol/L Carbon Dioxide 10 L (22-30) mmol/L BUN 21 H (7-17) mg/dL Creatinine 3.22 H (0.52-1.04) mg/dL Glucose 94 (74-99) mg/dL Calcium 7.4 L (8.4-10.2) mg/dL Adrenal panel 02/20/19 Range/Units 04:00 Sodium 133 L (137-145) mmol/L Potassium 5.9 H (3.5-5.1) mmol/L Chloride 98 (98-107) mmol/L Carbon Dioxide 10 L (22-30) mmol/L BUN 21 H (7-17) mg/dL Creatinine 3.22 H (0.52-1.04) mg/dL Glucose 94 (74-99) mg/dL Calcium 7.4 L (8.4-10.2) mg/dL Total Bilirubin 1.5 H (0.2-1.3) mg/dL AST 224 H (14-36) U/L ALT 52 (9-52) U/L Alkaline Phosphatase 562 H (38-126) U/L Total Protein 3.3 L (6.3-8.2) g/dL Albumin 1.2 L (3.5-5.0) g/dL Assessment and Plan (1) Septic shock Narrative/Plan: Unfortunately despite aggressive supportive medical care the patient has exhibited worsening septic shock. Certainly given the patient's profound acidosis small bowel ischemia remains a possibility. No evidence on CAT scan of necrotic bowel or perforation seen at this time. Either way the patient is a very poor surgical candidate and the risk of during anesthesia is quite high. At this time would continue supportive care without plans for abdominal exploration. The clinical scenario was discussed in detail with the patient's family. Case also discussed with pulmonary. Unfortunately this patient's condition is grave at this point. If no improvement in the next short while comfort measures may be appropriate. Current Visit: Yes Status: Acute Code(s): A41.9 - SEPSIS, UNSPECIFIED O RGANISM; R65.21 - SEVERE SEPSIS WITH SEPTIC SHOCK SNOMED Code(s): 89495583
[2019-02-20 12:40] LABS: ABG Base Excess -17.5 mmol/L; ABG HCO3 13 mmol/L (21-25); ABG Oxygen Saturation 93.8 % (94-97); ABG PCO2 51 mmHg (35-45); ABG PO2 93 mmHg (83-108); ABG TCO2 15 mmol/L (19-24)
[2019-02-20 12:41] LABS: ABG PH 7.02 (7.35-7.45)
[2019-02-20 16:35] LABS: Glucose,Whole Blood 117 mg/dL (75-99)
[2019-02-20 18:05] VITALS: TEMP 97.2
[2019-02-20] MEDS: NOREPINEPHRINE 32 MG in SODIUM CHLORIDE 0.9% 218 ML IV SCH ×2 (18:58→20:01)
[2019-02-20] MEDS: ATORVASTATIN 20 MG TAB PO SCH (20:02)
[2019-02-20 20:10] LABS: Glucose,Whole Blood 127 mg/dL (75-99)
[2019-02-20 22:19] VITALS: RESP 16
--- NOTE | 2019-02-20 23:49 | PN ---
PROGRESS NOTE DATE OF SERVICE: February 20, 2019. PRESENTING COMPLAIN: Intubated. INTERVAL HISTORY: The patient admitted with GI problems of severe ulceration in the duodenum, stomach, lung mass and also was hypotensive. The patient is on CAPD 4 times a day. The patient remains in the ICU, intubated. The patient went into atrial fibrillation with rapid ventricular rate, was put on IV Cardizem last night. Also on bicarbonate drip. NG tube is putting out bilious. The patient is not tolerating any tube feeding. Levophed is maxed out at 75 mics. CAPD catheter retrieved some brown material, could be fecal. The patient's hands have been mottling. FiO2 is 100 on the ventilator and PEEP of 5. REVIEW OF SYSTEMS: The patient is noncommunicative, intubated. CURRENT MEDICATIONS: Reviewed as above. PHYSICAL EXAMINATION: VITAL SIGNS: On examination, pulse 80, respiration 16, blood pressure 102/27, pulse ox 60 percent on 100% FiO2. GENERAL APPEARANCE: Lying in bed, intubated. EYES: Pupils equal. Conjunctivae pale. NECK: JVD unable to assess. Mass not palpable. RESPIRATORY: Effort increased. LUNGS: Diminished breath sounds. Some crackles. CARDIOVASCULAR: 1st and 2nd sounds normal. Some edema present. ABDOMEN: Soft, some tenderness. Liver and spleen not palpable. PD catheter in place. NEUROLOGICAL: Pupils equal. No facial asymmetry. INVESTIGATIONS: Blood gas showed a pH of 7.02. CT scan of the abdomen shows severe diffuse soft tissue anasarca, some ascites. Prominent fluid-filled bowel loops throughout the lower abdomen with some air from prominent loops, severe consolidation in the right lower lobe. Interval development of a thick-walled cavitary lesion. Possibly underlying cirrhosis. ASSESSMENT: 1. Acute hypoxic respiratory failure secondary to pneumonia, slow to respond. 2. Acute bilateral pneumonia from Pseudomonas and Staph aureus. 3. Acute hypoxic respiratory failure requiring ventilator support worsening. 4. Right lung mass with right pleural effusion malignancy highly possible also with a possible cavitary mass. 5. End-stage kidney disease on peritoneal dialysis. 6. Diabetic peripheral neuropathy. 7. Hyperlipidemia. 8. Hypotensive shock, multifactorial including septic shock requiring pressure support to the maximum 75 mics. 9. Severe peptic ulcer disease with gastric ulcer and also duodenitis, gastritis, severe esophagitis. 10.Acute severe chronic obstructive pulmonary disease exacerbation in a current smoker. The patient continues to do poorly and remains critically ill. I spoke to the patient's on the phone and explained patient's overall poor prognosis which she totally understands. The patient had been a FULL CODE up till now. ADVANCED CARE PLANNING: Discussed with the patient's at length over the phone. At this time, patient's overall poor condition and rapidly failing and the patient is already maxed out on Levophed. The patient does understand that. It is entirely possible patient may shut down tonight. The patient's is agreeable to proceed with DO NOT RESUSCITATE orders and he is understands the terminal extubation/wean in the morning. He will convey this to the son. About 20 minutes of care was spent on this aspect of the case in addition to the progress note. MMBILLL / IJN: [id number] /
[2019-02-21] MEDS: INSULIN ASPART (NovoLOG) 100 UNIT/ML VIAL SQ SCH (00:15)
[2019-02-21] MEDS: metroNIDAZOLE-NS PMX 500 MG in SALINE 1 100ML.BAG IVPB SCH (00:20)
[2019-02-21 00:24] LABS: Glucose,Whole Blood 181 mg/dL (75-99)
[2019-02-21 03:58] VITALS: PULSE 57
[2019-02-21] MEDS: IPRATROPIUM-ALBUTEROL 3 ML NEB INHALATION SCH (04:28)
--- NOTE | 2019-02-22 08:00 | DS ---
DISCHARGE SUMMARY DATE OF ADMISSION: 02/13/2019 DATE PATIENT : 02/21/2019 CAUSE OF : Bilateral pneumonia from Pseudomonas and Staph aureus. OTHER MEDICAL PROBLEMS: 1. Acute hypoxic respiratory failure secondary to pneumonia. 2. Acute hypoxic respiratory failure requiring ventilator support. 3. Right lung mass with slight pleural effusion malignancy highly possible with possible cavitary mass. 4. End-stage kidney disease on peritoneal dialysis. 5. Diabetic peripheral neuropathy. 6. Hyperlipidemia. 7. Hypotensive shock, multifactorial and septic shock requiring pressure support. 8. Severe peptic ulcer disease with gastric ulcer, duodenitis, gastritis and severe esophagitis. 9. Acute severe chronic obstructive pulmonary disease exacerbation in a smoker. CONSULTATIONS: Dr. Rodriges from General Surgery; Dr. Lauren from Vascular Surgery; Dr. Callahan and colleagues from Critical Care; Dr. Krista Moore from Cardiology; Dr. Turner and associates from Nephrology. HOSPITAL COURSE: This patient with end-stage on peritoneal dialysis, continued to smoke. Presented with hypotension. EGD found multiple ulcers. Then patient continued to deteriorate and had to be intubated, was on the ventilator, had pneumonia and continued to deteriorate. Finally, patient was doing very poorly on full maximum pressor support and succumbed to the underlying problem. MMODL / IJN: [id number] /
== END 2019-02-21 07:56 | disposition expired | DRG 207 ==
LOC: EC 12:52 → 4SSUR 16:36 → 2SICU 02-15 16:27
PROVIDERS: ADMIT Hospitalist; ATTEND Hospitalist
PROC: 3E1M39Z Irrigation of Peritoneal Cavity using Dialysate, Percutaneous Approach (ICD-10-PCS; 2019-02-13)
PROC: 0DB98ZX Excision of Duodenum, Via Natural or Artificial Opening Endoscopic, Diagnostic (ICD-10-PCS; 2019-02-14)
PROC: 0DB78ZX Excision of Stomach, Pylorus, Via Natural or Artificial Opening Endoscopic, Diagnostic (ICD-10-PCS; 2019-02-14)
PROC: 0BH17EZ Insertion of Endotracheal Airway into Trachea, Via Natural or Artificial Opening (ICD-10-PCS; principal; 2019-02-15)
PROC: 5A1955Z Respiratory Ventilation, Greater than 96 Consecutive Hours (ICD-10-PCS; 2019-02-15)
PROC: 04HY32Z Insertion of Monitoring Device into Lower Artery, Percutaneous Approach (ICD-10-PCS; 2019-02-15)
PROC: 4A133B1 Monitoring of Arterial Pressure, Peripheral, Percutaneous Approach (ICD-10-PCS; 2019-02-15)
PROC: 4A133J1 Monitoring of Arterial Pulse, Peripheral, Percutaneous Approach (ICD-10-PCS; 2019-02-15)
PROC: 02HV33Z Insertion of Infusion Device into Superior Vena Cava, Percutaneous Approach (ICD-10-PCS; 2019-02-15)
PROC: 0DH67UZ Insertion of Feeding Device into Stomach, Via Natural or Artificial Opening (ICD-10-PCS; 2019-02-15)
PROC: 3E0G76Z Introduction of Nutritional Substance into Upper GI, Via Natural or Artificial Opening (ICD-10-PCS; 2019-02-16)
PROC: 0B9F8ZX Drainage of Right Lower Lung Lobe, Via Natural or Artificial Opening Endoscopic, Diagnostic (ICD-10-PCS; 2019-02-17)
PROC: 0B9D8ZX Drainage of Right Middle Lung Lobe, Via Natural or Artificial Opening Endoscopic, Diagnostic (ICD-10-PCS; 2019-02-17)
DX: J15.1 Pneumonia due to Pseudomonas (principal); A41.01 Sepsis due to Methicillin susceptible Staphylococcus aureus; R65.21 Severe sepsis with septic shock; K55.059 Acute (reversible) ischemia of intestine, part and extent unspecified; K72.00 Acute and subacute hepatic failure without coma; K65.1 Peritoneal abscess; G93.41 Metabolic encephalopathy; K22.11 Ulcer of esophagus with bleeding; K25.4 Chronic or unspecified gastric ulcer with hemorrhage; K26.4 Chronic or unspecified duodenal ulcer with hemorrhage; K29.81 Duodenitis with bleeding; N18.6 End stage renal disease; J96.01 Acute respiratory failure with hypoxia; N17.9 Acute kidney failure, unspecified; I13.2 Hypertensive heart and chronic kidney disease with heart failure and with stage 5 chronic kidney disease, or end stage renal disease; E87.2 Acidosis; R18.8 Other ascites; I48.1 Persistent atrial fibrillation; D62 Acute posthemorrhagic anemia; C34.11 Malignant neoplasm of upper lobe, right bronchus or lung; J44.0 Chronic obstructive pulmonary disease with (acute) lower respiratory infection; T85.71XA Infection and inflammatory reaction due to peritoneal dialysis catheter, initial encounter; E87.1 Hypo-osmolality and hyponatremia; I50.30 Unspecified diastolic (congestive) heart failure; J44.1 Chronic obstructive pulmonary disease with (acute) exacerbation; Z51.5 Encounter for palliative care; Z66 Do not resuscitate; D69.6 Thrombocytopenia, unspecified; E11.42 Type 2 diabetes mellitus with diabetic polyneuropathy; E11.22 Type 2 diabetes mellitus with diabetic chronic kidney disease; E11.65 Type 2 diabetes mellitus with hyperglycemia; H70.93 Unspecified mastoiditis, bilateral; E87.5 Hyperkalemia; J15.20 Pneumonia due to staphylococcus, unspecified; E78.5 Hyperlipidemia, unspecified; F17.210 Nicotine dependence, cigarettes, uncomplicated; E86.0 Dehydration; R59.0 Localized enlarged lymph nodes; M89.9 Disorder of bone, unspecified; H91.90 Unspecified hearing loss, unspecified ear; E66.9 Obesity, unspecified; E87.6 Hypokalemia; H66.92 Otitis media, unspecified, left ear; F41.9 Anxiety disorder, unspecified; G47.00 Insomnia, unspecified; Z68.30 Body mass index [BMI] 30.0-30.9, adult; Z83.3 Family history of diabetes mellitus; Z99.2 Dependence on renal dialysis; Z79.899 Other long term (current) drug therapy; Z79.4 Long term (current) use of insulin; Z88.0 Allergy status to penicillin; Z88.2 Allergy status to sulfonamides; Z90.710 Acquired absence of both cervix and uterus; Z90.49 Acquired absence of other specified parts of digestive tract; Z82.49 Family history of ischemic heart disease and other diseases of the circulatory system; Z80.9 Family history of malignant neoplasm, unspecified
CPT/HCPCS: 36415; 43239; 70450; 71045; 71046; 71250; 71260; 74176; 80048; 80051; 80053; 80202; 82040; 82140; 82330; 82533; 82805; 83036; 83605; 83735; 84100; 84132; 84145; 84484; 85025; 85610; 85730; 87040; 87070; 87075; 87077; 87186; 87205; 88108; 88305; 89050; 93005; 93306; 94002; 94003; 94640; 96360; 96361; 99285

== ENCOUNTER → 2019-02-15 | Day surgery (SDC) | payer MEDICARE, BC ==
[~2019-02-15] MED LIST: MORPHINE SULFATE 2 MG/ML SYRINGE ONE
== END ==
LOC: ORWHC2ENDO 11:00
PROVIDERS: ATTEND Internal Medicine
DX: K52.9 Noninfective gastroenteritis and colitis, unspecified (principal)
CPT/HCPCS: 36410; 76937; 87070; 87077; 87102; 87116; 87186; 87205; 87206; 87252; 87496; 87498; 87502; 87529; 87634; 87798; 89050